=== PATIENT | female | born 1925 | race Caucasian/White ===

== ENCOUNTER 2016-04-25 15:07 | Emergency (ER) | payer MEDICARE ==
[~2016-04-25] VITALS: Ht 157.5 cm; Wt 65.0 kg
[2016-04-25 15:20] VITALS: BP 136/98; PULSE 113; RESP 18; O2SAT 98
--- NOTE | 2016-04-25 15:24 | ED.REPORT ---
HPI-General Illness Date of Service Apr 25, 2016 ED Provider: Dr. Mikayla Farooq M.D. An 89 year old female presents to the ED from her PCP in new-onset atrial fibrillation. Three weeks ago the patient was diagnosed with a UTI and placed on antibiotics. When she was seen by her PCP today, she was found to be in atrial fibrillation. Her only complaint at this time is trouble sleeping for the past 2-3 weeks. Pt's reports that she has been sleeping more than usual. He is not sure if it is from the antibiotics or not. Nursing Notes Stated Complaint: HEART CONCERNS Chief Complaint: Dysrhythmia/Cardiac Nursing Notes Reviewed: Yes Allergies: Coded Allergies: procaine (Verified Allergy, Unknown, 04/25/16) Scheduled Metoprolol Tartrate (Metoprolol Tartrate) 25 Mg Tablet 25 MG PO BID Triamterene/HCTZ 75-50 mg (Triamterene/HCTZ 75-50 mg) 1 Each Tablet 0.5 TABLET PO DAILY Miscellaneous Medications Levothyroxine Sodium (Levo-T) 100 Mcg Tablet 100 MCG PO General Time Seen by MD: 15:25 Chief Complaint Other (New Atrial Fibrillation) Hx Obtained From: Patient, Spouse (Akira) Arrived By: Walk-in Sudden in Onset?: Yes Onset Occurred: Onset unknown Symptom Duration: Since onset Severity: Current: No pain currently Severity: Maximum: No pain Pertinent Negative: Pt denies other symptoms Recent Healthcare: Recent doctor visit (today for follow up UTI) Past Medical History Past Medical History Schatzki's ring Gastric Polyps Reports: Hypertension Reports: Thyroid disease (hypothyroidism) Past Surgical History None reported Smoking History Unknown if Ever Smoker Social History Other Social History: Good social support Ambulatory Status Independent Review of Systems Full Review of Systems Constitutional: Denies: Chills, Fatigue, Fever, Lethargy, Malaise Eyes: Denies: Blurred bilateral, Discharge bilateral, Eye pain bilateral, Redness bilateral, Visual loss bilateral Ears / Nose / Throat: Denies: Ear drainage bilateral, Ear ringing bilateral, Earache bilateral, Hearing loss bilateral, Nasal congestion, Sore throat Respiratory: Denies: Dyspnea on exertion, Hemoptysis, Non-productive cough, Parox nocturnal dyspnea, Pleuritic pain, Prod cough, bloody, Prod cough, brown, Prod cough, clear, Prod cough, green, Prod cough, white, Prod cough, yellow, Shortness of breath, Wheezing Cardiovascular: Denies: Chest pain, Dyspnea on exertion, Edema, Orthopnea, Palpitations, Parox nocturnal dyspnea, Syncope GI: Denies: Abdominal pain, Constipation, Diarrhea, Nausea, Vomiting Female: Denies: Dysuria, Hematuria, Urinary frequency, Urinary urgency, Urination increased Musculoskeletal: Denies: Back pain, Extremity pain, Extremity swelling, Joint pain, Joint swelling, Lumbar pain, Myalgia, Neck pain, Thoracic pain Hematologic: Denies Bleeding, Denies Bruising Endocrine: Denies: Cold intolerance, Heat intolerance, Polydipsia, Polyphagia, Polyuria, Weight gain, Weight loss Skin: Denies Bruising, Denies Diaphoresis, Denies Itching, Denies Rash, Denies Swelling, Denies Unexplained bruises Allergy / Immune: Denies: Allergic reaction, Anaphylaxis, Hives, Itching, Rhinorrhea, Sneezing Neurologic: Denies: Abnormal movement, Bladder dysfunction, Bowel dysfunction, Change LOC, Confusion, Dizziness, Focal weakness, Headache, Lightheaded, Numbness, Problem walking, Seizure, Shaking, Slurred speech, Spinning sensation , Syncope, Unable to speak, Vision change, Weakness Psychiatric: Denies: Agitation, Anxiety, Change mental status, Confusion, Delusional, Depression, Hallucinations, auditory, Hallucinations, visual, Homicidal ideation, Hostile, Insomnia, Stress, Suicidal ideation, Unable to control self Physical Exam Vital Signs Vital Signs Date Time Temp Pulse Resp B/P Pulse Ox O2 Delivery O2 Flow Rate FiO2 04/25/16 18:01 122 12 120/80 97 Room Air 04/25/16 17:59 122 12 120/80 97 Room Air 04/25/16 16:45 133 22 126/73 97 Room Air 04/25/16 15:54 20 119/93 100 Room Air 04/25/16 15:20 36.0 113 18 136/98 98 Room Air Initial VS: Reviewed General/Constitutional: Well-developed, Well-nourished Head / Eyes: Atraumatic, Normocephalic, PERRL ENT: Mucous membranes moist, Conjunctiva normal, No scleral icterus Neck: Supple, Non-tender, Full range of motion Respiratory: Breath sounds normal, Clear to auscultation, No respiratory distress Cardiovascular: Heart sounds normal, Intact distal pulses Abdomen / GI: Soft, Non-tender, No guarding, No rebound, No distention Back: No CVA tenderness Lymphatic: No lymphadenopathy Extremities: Vascular intact, Neuro intact, No swelling, No tenderness Skin: Warm, Dry Neurologic: Alert, Oriented, Nonfocal Psychiatric: Mood/affect normal, Behavior normal, Normal thought content Heart Rate / Rhythm: Positive: Irreg irregular rhythm Interpretation & Diagnostics Interpretation & Diagnostics: CXR showed no acute cardiopulmonary changes Lab Results Interpretation Result Diagram: 04/25/16 1532 04/25/16 1532 Test 04/25/16 15:32 04/25/16 17:34 White Blood Count 9.5th/mm3 (3.8-10.1) Red Blood Count 5.08mil/mm3 (3.90-5.20) Hemoglobin 15.0g/dL (12.0-15.6) Hematocrit 44.4% (35.0-46.0) Mean Corpuscular Volume 87.4fL (81-100) Mean Corpuscular Hemoglobin 29.5pg (27.0-35.0) Mean Corpuscular Hemoglobin Concent 33.8% (32.0-37.0) Red Cell Distribution Width 14.1% (12.3-15.4) Platelet Count 400bil/L (150-400) Neutrophils (%) (Auto) 66.1% (40-74) Lymphocytes (%) (Auto) 23.7% (14-46) Monocytes (%) (Auto) 8.0% (4-12) Eosinophils (%) (Auto) 0.7% (0-5) Basophils (%) (Auto) 1.0% (0-3) Sodium Level 136mEq/L (134-144) Potassium Level 3.6mEq/L (3.5-5.2) Chloride Level 95mEq/L (97-108) Carbon Dioxide Level 25mmol/L (18-29) Blood Urea Nitrogen 38mg/dL (8-27) Creatinine 1.20mg/dL (0.57-1.00) Estimat Glomerular Filtration Rate 61mL/min (>59) Glucose Level 85mg/dL (60-99) Calcium Level 9.6mg/dL (8.5-10.1) Magnesium Level 1.8mg/dL (1.6-2.6) Total Bilirubin 0.4mg/dL (0.0-1.2) Aspartate Amino Transf (AST/SGOT) 16U/L (0-50) Alanine Aminotransferase (ALT/SGPT) 15U/L (0-32) Alkaline Phosphatase 86U/L (25-165) Troponin T < 0.010ug/L (0.0-0.011) Pro-B-Type Natriuretic Peptide 1967pg/mL (0-738) Total Protein 8.0g/dL (6.4-8.4) Albumin 3.9g/dL (3.4-5.0) Thyroid Stimulating Hormone (TSH) 2.940uIU/mL (0.450-4.500) Hold Rice Top Tube Received (Received) Hold Urine Received (Received) ECG Interpretation ECG Interpretation: Atrial fibrillation rate 126 Inferior infarct, old Lateral leads are also involved Time: 15:37 Interpreted by: ED physician Re-Eval/Medical Decision Med Decision/Clinical Course SAVI s(2) score is 2 for HTN and Age, rec warfarin unless reasons to avoid 1. Atrial fibrillation -Unknown onset -Etiology unknown -Troponin <0.01, CXR showed no acute changes -No focal neurological deficits on exam Discharge & Departure Shift Change Sign-Out Imaging Studies: Done, reviewed by me Primary Impression: Atrial fibrillation Atrial fibrillation type: unspecified Qualified Code: I48.91 - Unspecified atrial fibrillation Disposition: Home Discharge Condition All VS Reviewed: Yes Condition: Stable Patient Instructions: Atrial Fibrillation (ED), Palpitations (ED) Additional Instructions: You were sent to the ER for newly noticed atrial fibrillation. We don't know how long you have been in this rythm, but you are tolerating it well. To control the rate: Start metoprolol 25 mg 1 tablet twice daily Start taking a full 325 mg Aspirin 1 tablet once daily to thin your blood and to prevent stroke. Continue triamterene/HCTZ for your blood pressure as previously prescribed. Follow up within 1 week with your primary care provider, JI Chamberlain to discuss blood thinners, possible echo cardiogram, possible cardiology involvement. If you notice any chest pain, trouble breathing, trouble walking, changes in your speech, or numbness or tingling please seek medical attention. Referrals: Lester Jimenez MD (PCP) 1 Week Scribe Attestation Portions of this note were transcribed by Moni Barillas. I, Dr. Farooq, personally performed the history, physical exam, and medical decision-making; I reviewed and confirmed the accuracy of the information in the transcribed note. Signed by: Shan Babin, 04/25/2016, 16:56 Attending Statement Pt seen and examined with Dr Cordoba. Agree with exam, plan and documentation as above. copies to: Melinda Correa; Lester Jimenez MD, Shawna L MD Apr 25, 2016 15:24 MONI BARILLAS Apr 25, 2016 16:03 Nasreen Cordoba DO Apr 25, 2016 16:52
[2016-04-25 15:43] LABS: EOSINOPHILS % (AUTO) 0.7 % (0-5); Mean Corpuscular Hemoglobin 29.5 pg (27.0-35.0); Mean Corpuscular Volume 87.4 fL (81-100); NEUTROPHILS % (AUTO) 66.1 % (40-74); Platelet Count 400 bil/L (150-400)
[2016-04-25 15:54] VITALS: BP 119/93; RESP 20; O2SAT 100
[2016-04-25] MEDS ORDERED: LEVO-88 PO (16:01)
[2016-04-25] MEDS ORDERED: TRIA1TAB5 PO (16:05)
--- NOTE | 2016-04-25 16:07 | DRSVH ---
PROCEDURE: X-RAY CHEST ONE VIEW, PORTABLE ([id number]) INDICATIONS: dysrythmia TECHNIQUE: One view of the chest was acquired. COMPARISON: None. FINDINGS: Surgical changes and devices: None. Lungs and pleura: No pleural effusions or pneumothorax. Lungs are clear. Mediastinum: Mediastinal contours appear normal. Heart size is normal. Bones and chest wall: No suspicious bony lesions. Overlying soft tissues appear unremarkable. IMPRESSION: No acute cardiopulmonary disease. Dictated by: Nilda Headley M.D. on 04/25/2016 at 16:05 Approved by: Nilda Headley M.D. on 04/25/2016 at 16:05
[2016-04-25 16:16] LABS: TROPONIN T < 0.010 ug/L (0.0-0.011)
[2016-04-25 16:19] LABS: Magnesium 1.8 mg/dL (1.6-2.6)
[2016-04-25 16:45] VITALS: BP 126/73; PULSE 133; RESP 22; O2SAT 97
[2016-04-25] MEDS ORDERED: METO25TA6 PO (17:42)
[2016-04-25 17:59] VITALS: BP 120/80; PULSE 122; RESP 12; O2SAT 97
[2016-04-25 18:01] VITALS: BP 120/80; PULSE 122; RESP 12; O2SAT 97
== END 2016-04-25 18:02 | disposition home or self-care (01) ==
LOC: SED 15:07
DX: I48.91 Unspecified atrial fibrillation (principal); I10 Essential (primary) hypertension; E03.9 Hypothyroidism, unspecified; Z88.8 Allergy status to other drugs, medicaments and biological substances; Z87.440 Personal history of urinary (tract) infections

== ENCOUNTER 2016-05-03 12:02 | Inpatient (IN) | payer MEDICARE ==
[~2016-05-03] VITALS: Ht 154.9 cm; Wt 67.8 kg
[2016-05-03] VITALS (9 sets, daily range): BP systolic 116–153; BP diastolic 47–95; PULSE 71–86; RESP 16–24; O2SAT 94–99
[~2016-05-03 12:02] MED LIST: LEVO-88 PO; METO25TA6 PO; TRIA1TAB5 PO
--- NOTE | 2016-05-03 12:04 | ED.REPORT ---
HPI-Stroke / CVA May 03, 2016 ED Provider: MD Enmanuel This is a 89 year old female with a history of atrial fibrillation brought to the ED by EMS with aphasia that was present upon awakening one hour ago. Last known well was sometime after midnight when she went to bed. Spouse reports pt had difficulty speaking and walking. Pt was diagnosed with atrial fibrillation one week ago. Last known normal was yesterday night. En route, BP 144/88, pulse 86, pulse ox 94%. Nursing Notes Stated Complaint: STROKE Nursing Notes Reviewed: Yes Allergies: Coded Allergies: procaine (Verified Allergy, Unknown, 05/03/16) Scheduled Metoprolol Tartrate (Metoprolol Tartrate) 25 Mg Tablet 25 MG PO BID Triamterene/HCTZ 75-50 mg (Triamterene/HCTZ 75-50 mg) 1 Each Tablet 0.5 TABLET PO DAILY (Reported) Miscellaneous Medications Levothyroxine Sodium (Levo-T) 100 Mcg Tablet 100 MCG PO (Reported) General Time Seen by Provider: 12:03 Chief Complaint Unable to speak Hx Obtained From: Patient Arrived By: Ambulance Time last known well 12 hours ago Sudden in Onset?: Yes Symptom Duration: Since onset Progression Since Onset: Unchanged Severity: Current: No pain currently Pertinent Negative: Pt denies other symptoms Recent Healthcare: No recent doctor visit, No recent hospitalization Similar Sx Previous: No Risk Factors Onset time cannot be established therefore, the patient is excluded. 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 (1) Horizontal EO Movements: None (0) Visual Schwartz: No visual loss (0) Facial Palsy: Normal symmetry (0) Right Arm Motor Drift (10s): Drift, not touch bed (1) Left Arm Motor Drift (10s): No drift 10 sec (0) Right Leg Motor Drift (5s): No drift 5 sec (0) Left Leg Motor Drift (5s): Drift, hits bed (2) Limb Ataxia FNF/Heel-Braun: No ataxia (0) Sensation (Arms/Legs/Face): No sensory loss (0) (untestable) Language Aphasia: Mute, global aphasia (3) Dysarthria: Mute, anarthric (2) Extinction/Inattention: Prfound naman-inattent (2) NIHSS Score: 11 Time NIHSS Performed: 13:16 Date NIHSS Performed: May 03, 2016 Past Medical History Past Medical History Schatzki's ring Gastric Polyps Reports: Hypertension Reports: Thyroid disease Past Surgical History None reported Smoking History Unknown if Ever Smoker Social History Other Social History: Good social support Ambulatory Status Independent Review of Systems Constitutional: Denies: Chills, Fever Respiratory: Denies: Non-productive cough, Shortness of breath Cardiovascular: Denies: Chest pain GI: Denies: Abdominal pain, Nausea, Vomiting Neurologic: Reports: Problem walking, Unable to speak, Denies: Headache Complete sys rev & neg: except as marked. Physical Exam Initial Vital Signs Vital Signs (First) Date Time Temp Pulse Resp B/P Pulse Ox O2 Delivery O2 Flow Rate FiO2 05/03/16 12:05 37 76 20 153/83 99 Room Air - Initial VS: Reviewed ENT: Mucous membranes moist, Conjunctiva normal, No scleral icterus Abdomen / GI: Soft, Non-tender, No guarding, No rebound, No distention Extremities: Vascular intact, Neuro intact, No swelling, No tenderness Skin: Warm, Dry, No cyanosis General/Constitutional: Awake Head / Eyes: PERRL Neck: Supple, Full range of motion, No swelling, Non-tender, No carotid bruit Respiratory / Chest: Breath sounds NL, Breath sounds = bilat, No respiratory distress, No rales, No rhonchi, No wheezing Cardiovascular: Heart rate NL, Regular rhythm, Heart sounds NL, No murmurs, No rubs Neurologic: No sensory deficits aphasia, NIH stroke scale 11 Interpretation & Diagnostics BRAIN CT IMPRESSION: No acute intracranial abnormality. Dictated by: Aditya Aguirre M.D. on 05/03/2016 at 12:53 Approved by: Aditya Aguirre M.D. on 05/03/2016 at 12:53 Lab Results Interpretation Result Diagram: 05/03/16 1211 05/03/16 1211 Test 05/03/16 12:11 05/03/16 12:45 White Blood Count 11.2th/mm3 (3.8-10.1) Red Blood Count 4.36mil/mm3 (3.90-5.20) Hemoglobin 12.6g/dL (12.0-15.6) Hematocrit 38.8% (35.0-46.0) Mean Corpuscular Volume 89.0fL (81-100) Mean Corpuscular Hemoglobin 28.9pg (27.0-35.0) Mean Corpuscular Hemoglobin Concent 32.5% (32.0-37.0) Red Cell Distribution Width 14.5% (12.3-15.4) Platelet Count 283bil/L (150-400) Neutrophils (%) (Auto) 76.2% (40-74) Lymphocytes (%) (Auto) 16.3% (14-46) Monocytes (%) (Auto) 6.3% (4-12) Eosinophils (%) (Auto) 0.4% (0-5) Basophils (%) (Auto) 0.4% (0-3) Prothrombin Time 10.1sec (8.1-12.5) Prothromb Time International Ratio 0.95ratio Sodium Level 139mEq/L (134-144) Potassium Level 3.3mEq/L (3.5-5.2) Chloride Level 100mEq/L (97-108) Carbon Dioxide Level 24mmol/L (18-29) Blood Urea Nitrogen 29mg/dL (8-27) Creatinine 0.95mg/dL (0.57-1.00) Estimat Glomerular Filtration Rate 80mL/min (>59) Glucose Level 101mg/dL (60-99) Calcium Level 9.3mg/dL (8.5-10.1) Total Bilirubin 0.4mg/dL (0.0-1.2) Aspartate Amino Transf (AST/SGOT) 15U/L (0-50) Alanine Aminotransferase (ALT/SGPT) 11U/L (0-32) Alkaline Phosphatase 83U/L (25-165) Total Protein 7.5g/dL (6.4-8.4) Albumin 3.8g/dL (3.4-5.0) Urine Color Yellow (YELLOW) Urine Appearance Hazy (CLEAR,HAZY) Urine pH 6.5 (5.0-8.0) Urine Specific [place]lin 1.010 (1.003-1.035) Urine Protein Negativemg/dL (NEG,TRACE) Urine Glucose (UA) Negativemg/dL (NEGATIVE) Urine Ketones Negativemg/dL (NEGATIVE) Urine Occult Blood Negative (NEGATIVE) Urine Nitrite Negative (NEGATIVE) Urine Bilirubin Negative (NEGATIVE) Urine Urobilinogen Normalmg/dL (NORMAL) Urine Leukocyte Esterase Small (NEGATIVE) Urine RBC 0-2/hpf (0-2) Urine WBC 0-5/hpf (0-5) Urine Epithelial Cells Occasional/hpf (NONE-MOD) Urine Crystals None seen (NONE SEEN) Urine Bacteria Few/hpf (NONE-FEW) Urine Hyaline Casts None/lpf (NONE) Urine Granular Casts None seen (NONE SEEN) Urine Waxy Casts None seen (NONE SEEN) Urine Red Blood Cell Casts None seen (NONE SEEN) Urine White Blood Cell Casts None seen (NONE SEEN) Urine Mucus None seen (None Seen) Urine Trichomonas None seen (NONE SEEN) Urine Yeast None (NONE SEEN) Urinalysis Comment None Urine Culture Reflexed Indicated ECG Interpretation ECG Interpretation: Atrial fibrillation at a rate of 70 Atrial premature complexes Probable left atrial enlargement Nonspecific intraventricular conduction delay Time: 12:19 Interpreted by: ED physician Re-Eval/Medical Decision Re-Evaluation/Progress : Time of Eval: 13:15 Re-Evaluation/Progress Note: Discussed lab and imaging results with family members present in the room. Plan for admission, family members understand and agree with plan, all questions addressed. Consultation : Referral / Consult Name: Osei Deluca MD Consulted With: Hospitalist Call Returned at: 15:33 Cable Hooker: Accepts admit Counseled Regarding: Diagnosis, Lab results, Need for follow-up, Need for admission Patient Discharge & Departure Impression: Primary Impression: Stroke CVA mechanism: unspecified Qualified Code: I63.9 - Cerebral infarction, unspecified Disposition: ADMITTED TO HOSPITAL Discharge Condition All VS Reviewed: Yes Condition: Stable Referrals: Dimitris,Catalina WORKMAN (PCP) Scribe Attestation Portions of this note were transcribed by Karla Walton. I, Dr. Singer personally performed the history, physical exam and medical decision-making; I reviewed and confirmed the accuracy of the information in the transcribed note. Signed by: onofre Bell. 05/03/2016, 13:00. Hasmukh Singer MD May 03, 2016 12:04 KARLA WALTON May 03, 2016 12:13
[2016-05-03] MEDS ORDERED: 0.9% Sodium Chloride 1,000 ML IV ONE (12:07)
[2016-05-03 12:20] LABS: BASOPHILS % (AUTO) 0.4 % (0-3); EOSINOPHILS % (AUTO) 0.4 % (0-5); MONOCYTES % (AUTO) 6.3 % (4-12); Mean Corpuscular Hemoglobin 28.9 pg (27.0-35.0); NEUTROPHILS % (AUTO) 76.2 % (40-74); Platelet Count 283 bil/L (150-400)
[2016-05-03 12:45] LABS: INR 0.95 ratio
--- NOTE | 2016-05-03 12:54 | DRSVH ---
PROCEDURE: CT BRAIN WITHOUT CONTRAST ([id number]) INDICATIONS: Stroke, APHASIA TECHNIQUE: Noncontrast 4.5 mm thick angled axial sections acquired from the foramen magnum to the vertex, with c oronal reformats. COMPARISON: [facility], CT, BRAIN W/O CONTRAST, 09/09/2012, 8:23. FINDINGS: Image quality: Degraded by patient positioning factors. CSF spaces: Basal cisterns are patent. No extra-axial fluid collections. The ventricles are symmet paul in size and shape. Brain: No intracranial bleeds or masses. There is cerebral volume loss for age, with resultant vent ricular and sulcal prominence. There are periventricular and deep white matter chronic small vessel ischemic changes. There is intracranial internal carotid artery atherosclerosis. Skull and face: Calvarium and visualized facial bones appear intact, without suspicious lesions. Sinuses: Visualized sinuses and mastoids are clear. IMPRESSION: No acute intracranial abnormality. Dictated by: Aditya Aguirre M.D. on 05/03/2016 at 12:53 Approved by: Aditya Aguirre M.D. on 05/03/2016 at 12:53
[2016-05-03 13:09] LABS: APPEARANCE,URINE HAZY (CLEAR,HAZY); COLOR,URINE YELLOW (YELLOW); OCCULT BLOOD,URINE NEGATIVE (NEGATIVE); PH,URINE 6.5 (5.0-8.0); UROBILINOGEN,URINE NORMAL (NORMAL)
[2016-05-03] MEDS ORDERED: Ondansetron 2 mg/mL 2 mL Inj IVPUSH PRN (15:40)
[2016-05-03] MEDS ORDERED: Alum-Mag Hydrox-Simeth 30 mL Suspension PO PRN (15:40)
--- NOTE | 2016-05-03 16:43 | PCM.HPMED ---
Subjective Date of Service May 03, 2016 Primary Provider: Admitting Physician: Primary Care Physician: Catalina Shanks Attending Physician: Chief Complaint: altered mentation per family HISTORY was OBTAINED FROM family / [facility] NOTES History of present illness 89 y right handed f w. normal neurological status prior to bed last night, woke up this morning being less verbally responsive to , then walked to living room by herself, sat in chair then saw her spill glass of water on shirt w/ shaking/weak right hand, was able to give her ASA this morning though, then prsented to ER w/ progressive global aphasia / right upper extremity-facial weakness. 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 no headahce. neg nuc med scan [address] 83% Dr Cai on the 05/12 Per EMS BP 144/88, pulse 86, pulse ox 94%. In the ER, 1L normal saline, HDS, Head CT neg / unable to perform MR due to figetting, lacking understanding Review of Systems - unable to assess due to global aphasia pneumonia shot yesterday loose stool this am Fhx RHEUMATIC fever - F MD Social Hx never smoker Medications Metoprolol Tartrate (Metoprolol Tartrate) 25 Mg Tablet 25 MG PO BID Triamterene/HCTZ 75-50 mg (Triamterene/HCTZ 75-50 mg) 1 Each Tablet 0.5 TABLET PO DAILY (Reported) Levothyroxine Sodium (Levo-T) 100 Mcg Tablet 100 MCG PO (Reported) PMHX recent 04/06/2016 UC dysphagia, seeing ENT next week, swallow last year consistent w/ esophageal diverticulum? per daughter though Schatzki's ring documented . UTI recurrent Gastric Polyps Hypertension hypothyroidism new afib hip replacement 1999 appendectomy childhood Allergies Coded Allergies: epinephrine (Verified Allergy, Intermediate, 05/03/16) omeprazole (Verified Allergy, Intermediate, 05/03/16) lisinopril (Verified Allergy, Mild, 05/03/16) procaine (Verified Allergy, Unknown, 05/03/16) Uncoded Allergies: FERROUS DEXTROSE INJECTIONS (Allergy, Severe, UNK, 05/03/16) PMH Social History Hx Alcohol Use: No Hx Substance Use: No Smoking Status: Unknown if Ever Smoker Exam Vital Signs Vital Sign - Last Date Time Temp Pulse Resp B/P Pulse Ox O2 Delivery O2 Flow Rate FiO2 05/03/16 16:18 74 19 148/95 95 Room Air 05/03/16 12:05 37 Exam Past Medical/Surgical HX Exam on admission attempting to get of bed, does not follow commands, shake hands left, able to walk to commode per family NAD Awaker NC/AT no icterus no injected eyes PERRL Supple neck CTAB equal chest rise / no accessory muscle use / no rrw RRR S1 S2 / no mrg / 2+ radial pulses Soft nt nd + BS no hepatosplenomegaly No edema no cyanosis no ecchymosis of lower extremities No rash / no jaundice Right facial droop Right sided neglect Right upper extremity 2-3/5, global aphasia EKG QTC CXR neg acute UA tr leukocytes esterase and bacteria [id number], elevated triglycerides Trop neg x 2 Lab and Diagnostics Result Diagram: 05/03/16 1211 05/03/16 1211 Assessment & Plan Active issues and reason for admission Left MCA CVA, 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, pending confirmatory MRI, w/ recent atrial fibrillation diagnoses, --ASA ND, consider coumadin/AC therapy if MR demonstrates embolic CVA, npo, IVF , carotids w/o significant disease serial trop echo a1c pending, 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 Osei Deluca MD May 03, 2016 16:43 Osei Deluca MD May 03, 2016 16:43
[2016-05-03] MEDS ORDERED: Labetalol 5 mg/mL 4 mL Inj IVPUSH PRN (16:45)
[2016-05-03] MEDS ORDERED: hydrALAZINE 20 mg/mL Inj IVPUSH PRN (16:45)
[2016-05-03 17:46] LABS: TROPONIN T < 0.010 ug/L (0.0-0.011)
--- NOTE | 2016-05-03 18:50 | DRSVH ---
PROCEDURE: US BILATERAL DUPLEX DOPPLER IMAGING OF THE CAROTIDS ([id number]) INDICATIONS: Evaluate stroke follow up TECHNIQUE: Color and pulse Doppler interrogation was performed of both carotid systems, with image documentation and velocity measurements. COMPARISON: None. FINDINGS: All stenosis calculations are based on NASCET criteria. Right side: Brachial blood pressure: 116/56 mm Hg. Common carotid artery peak systolic velocity: 55 cm/sec. Internal carotid artery peak systolic velocity: 66 cm/sec. Internal carotid artery end diastolic velocity: 17 cm/sec. External carotid artery peak systolic velocity: 142 cm/sec. ICA/CCA peak systolic ratio: 1.20. Jennings scale imaging description: Mild calcific plaque in the proximal internal carotid artery Percent internal carotid artery stenosis: Less than 50%. Vertebral artery: Flow direction is antegrade. Left side: Brachial blood pressure: 121/58 mm Hg. Common carotid artery peak systolic velocity: 55 cm/sec. Internal carotid artery peak systolic velocity: 64 cm/sec. Internal carotid artery end diastolic velocity: 15 cm/sec. External carotid artery peak systolic velocity: 89 cm/sec. ICA/CCA peak systolic ratio: 1.16. Jennings scale imaging description: Mild calcific plaque at the bifurcation Percent internal carotid artery stenosis: Less than 50%. Vertebral artery: Flow direction is antegrade. IMPRESSION: 1. Less than 50% bilateral internal carotid artery stenosis. 2. Patent bilateral vertebral arteries. Dictated by: Aditya Aguirre M.D. on 05/03/2016 at 18:49 Approved by: Aditya Aguirre M.D. on 05/03/2016 at 18:49
--- NOTE | 2016-05-03 19:06 | NUR ---
Evaluation completed. Rec: Strict NPO. 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 Then select appropriate discipline tab on top of screen.
[2016-05-03] MEDS ORDERED: FERR325T39 PO (20:34)
[2016-05-03] MEDS ORDERED: ASPI-973 PO (20:34)
[2016-05-03] MEDS ORDERED: ASPI325T32 PO (20:34)
[2016-05-03] MEDS ORDERED: VIT1CAPS27 PO (20:34)
[2016-05-04] MEDS: D5 0.45% NaCl + KCl 20 mEq/L 1,000 ML IV SCH ×3 (00:04→18:44)
[2016-05-04] MEDS: cefTRIAXone Inj 1,000 MG in IV Premix 1 EACH IV SCH ×2 (02:03→20:35)
[2016-05-04 05:40] VITALS: BP 125/73; PULSE 82; RESP 16; O2SAT 96
[2016-05-04 06:23] LABS: BASOPHILS % (AUTO) 0.5 % (0-3); EOSINOPHILS % (AUTO) 0.6 % (0-5); MONOCYTES % (AUTO) 8.8 % (4-12); Mean Corpuscular Hemoglobin 29.4 pg (27.0-35.0); Mean Corpuscular Volume 88.3 fL (81-100); NEUTROPHILS % (AUTO) 71.8 % (40-74); Platelet Count 261 bil/L (150-400)
--- NOTE | 2016-05-04 06:28 | NUR ---
Admit Patient arrived to floor at 1824 from ED. Noted right sided weakness that improved throughout night, able to ambulate with 1 person assist and FWW. Transferred from bed to BSC several times during shift.Patient responds to questions, however inappropriately; responding with positive nods to any question asked. Occasionally, she will laugh and make gestures suggesting understanding but maintains persistent disorientation.
--- NOTE | 2016-05-04 09:05 | NUR ---
Evaluation completed. Please go to "Notes" then click on "Assessments and Notes" (bottom left corner of screen). Then select appropriate discipline tab on top of screen.
[2016-05-04 09:29] VITALS: BP 125/71; PULSE 69; RESP 16; O2SAT 97
[2016-05-04 09:37] VITALS: PULSE 92
--- NOTE | 2016-05-04 11:41 | NUR ---
Evaluation completed. Please go to "Notes" then click on "Assessments and Notes" (bottom left corner of screen). Then select appropriate discipline tab on top of screen.
--- NOTE | 2016-05-04 13:31 | DRSVH ---
[facility] [address] [place] [address] Echocardiogram Report Name: MADI BROWNLEE Date: Height: 61 in Hospital Exam Location: [facility] Weight: 153 lb Gender: Female BSA: 1.7 m2 : 1925 Age: 89 yrs BP: 125/73 mmHg Reason For Study: Atrial fibrillation, CVA Ordering Physician: Performed By: Gonzalez Garcia Referring Physician: ARIEL ZELAYA Interpretation Summary The left ventricle is normal in size. The ejection fraction is estimated to be 60-65%. There is mild mitral regurgitation. The aortic valve is trileaflet. There is mild aortic regurgitation. There is trace tricuspid regurgitation. The right ventricular systolic pressure is estimated at 35 mmHg assuming a right atrial pressure of 3 mm Hg. Procedure: A two-dimensional transthoracic echocardiogram with color flow and Doppler was performed. The study quality was technically adequate. There is no prior echocardiogram noted for this patient. A contrast injection of Definity was performed to improve assessment of LV function. The patient was in normal sinus rhythm during the exam. Left Ventricle: The left ventricle is normal in size. Left ventricular wall thickness is mildly increased. The ejection fraction is estimated to be 60- 65%. Left ventricular wall motion is normal. Assessment of diastolic parameters suggests a pseudonormalization pattern, consistent with elevated filling pressures. Right Ventricle: The right ventricle is normal size. Atria: There is mild biatrial enlargement. The interatrial septum is intact with no evidence for an atrial septal defect. Mitral Valve: The mitral valve leaflets are mildly calcified. There is mild mitral regurgitation. Aortic Valve: The aortic valve is trileaflet. The aortic valve opens well. There is mild aortic regurgitation. Tricuspid Valve: The tricuspid valve is normal. There is trace tricuspid regurgitation. The right ventricular systolic pressure is estimated at 35 mmHg assuming a right atrial pressure of 3 mm Hg. Pulmonic Valve: The pulmonic valve is not well seen, but is grossly normal. There is a trace or physiologic amount of pulmonic regurgitation. Great Vessels: The aortic root is normal size. The ascending aorta is mildly enlarged. The pulmonary artery is normal size. The IVC is of normal diameter and collapses greater than 50% with a sniff. This suggests a low right atrial pressure of 3 mm Hg. Pericardium/ Pleura There is no pericardial effusion. There is no pleural effusion. MMode/2D Measurements & Calculations LVIDd: 4.6 cm RA long axis: 4.8 cm LVOT diam: 1.8 cm LVIDs: 2.8 cmLA A2 area: 17.9 cm AoV Openin.4 cm FS: 39.2 % LA A4 area: 20.2 cm RA area: 19.4 cm Ao root diam EPSS: 0.67 cmLA length (vol) RA vol: 66.6 ml IVSd: 1.0 cm RA : 39.5 ml/m2 asc Aorta Diam LVPWd: 1.0 cmLA vol: 59.0 ml LA vol index Ao Arch Diam (Prox Trans): 3.2 cm IVC diam: 1.8 cm EDV(MOD-sp2) LV nolen. diameter/BSA LV sys. diameter/BSA RVD1 (basal) (cm/m^2): 2.7 (cm/m^2): 1.7 : 2.8 cm TAPSE: 1.8 cm Doppler Measurements & Calculations Ao V2 max: 122.8 cm/secMV E max idris MV E/A: 1.9 TR max idris Ao max P.0 mmHg : 78.0 cm/sec Med Peak E' Idris : 282.3 cm/sec Ao mean P.3 mmHg MV A max idris TR max PG LVOT Max Idris : 41.6 cm/sec E/E' med: 13.0 : 31.9 mmHg : 80.5 cm/sec Lat Peak E' Idris PA V2 max MVA(VTI): 2.2 cm2 : 61.5 cm/sec BEHZAD(I,D): 1.7 cm E/E' lat: 11.6 PA mean PG sev ratio: 0.65 E/e' average : 1.0 mmHg MV V2 mean: 53.4 cm/secAo V2 mean LV V1 max PG PA V2 mean MV mean P.4 mmHg : 86.3 cm/sec : 49.4 cm/sec MV V2 VTI: 21.4 cm Ao V2 VTI LV V1 VTI: 18.6 cmPA pr(Accel) MV dec time: 0.17 sec : 21.4 mmHg BEHZAD(V,D): 1.7 cm2 BEHZAD indexed to BSA (cm^2/m^2): 0.99 Electronically signed by: Harrison Cardona on Reading Physician:05/04/2016 01:30 PM
--- NOTE | 2016-05-04 14:08 | NUR ---
Social Work Initial Assessment: SW met with patient and family at bedside to discuss discharge plan. Patient is a 89 year old female admitted on 05/03/16 for CVA. Patient payer as [employer]. Patient PCP as Catalina Garcia. Patient resides with Akira, in [facility]. Patient has no previous HHC or SNF history. Patient has AD and SW encouraged patient to bring in. Patient has a walker and commode at home. Family, daughter Sabra, and son Marty, available to provide support and care and tuan Ferguson resides within vicinity of home. Pending PT eval and recommendations, SW to coordinate appropriate plan of care. SW to follow. PLAN: Home with , pending PT eval and clinical course. SW to follow. Zully ESCUDERO Addendum: 05/04/16 at 1417 by MIRELLA OZUNA Amended: Links added. Addendum: 05/04/16 at 1433 by MIRELLA OZUNA Per PT and OT recommendations, HHC recommended. SW to follow up with patient and family for HHC choice and further PT/OT progressions. SW to follow Zully ESCUDERO
[2016-05-04 14:19] VITALS: BP 147/81; PULSE 71; RESP 16; O2SAT 98
--- NOTE | 2016-05-04 15:46 | PCM.PNMED ---
Subjective Date of Service May 04, 2016 Subjective Patient has gotten a bit better is able to verbalize a little bit. And is able to understand a little bit more. She has been walking and arm strength has returned. She however has been evaluated by speech therapy and is not able to take anything orally yet because of poor swallow. Exam Vital Signs Vital Sign - Last Date Time Temp Pulse Resp B/P Pulse Ox O2 Delivery O2 Flow Rate FiO2 05/04/16 14:19 36.8 71 16 147/81 98 Room Air Intake and Output 05/03/16 05/03/16 05/04/16 Cumulative From/Thru 14:59 22:59 06:59 05/03/16 12:05 - 05/04/16 06:05 Intake Total 1000 ml 356 ml 1356 ml Output Total 50 ml 50 ml Balance 1000 ml 306 ml 1306 ml Intake Oral 0 ml 0 ml IV Total 1000 ml 356 ml 1356 ml Output Urine Total 50 ml 50 ml # Voids 3 3 # Bowel Movements 0 0 Exam Constitutional: Elderly woman who is alert. Head: Normocephalic atraumatic Eyes: PERRLA DC EOMI Chest: Clear to auscultation Cor: Irregular regular rate and rhythm S1-S2 Abdomen: Soft nontender bowel sounds present Extremity exam: No pedal edema noted Neuro: Alert and oriented to self, not easily able to evaluate if she is oriented to place or time. She still does have an expressive and receptive aphasia but is understanding a lot of conversations and commands and does try to verbalize and can get a few words out. Lab and Diagnostics Laboratory Tests 72 Hours Test 05/03/16 12:11 05/03/16 12:45 05/03/16 20:23 05/04/16 02:25 White Blood Count 11.2th/mm3 (3.8-10.1) Red Blood Count 4.36mil/mm3 (3.90-5.20) Hemoglobin 12.6g/dL (12.0-15.6) Hematocrit 38.8% (35.0-46.0) Mean Corpuscular Volume 89.0fL (81-100) Mean Corpuscular Hemoglobin 28.9pg (27.0-35.0) Mean Corpuscular Hemoglobin Concent 32.5% (32.0-37.0) Red Cell Distribution Width 14.5% (12.3-15.4) Platelet Count 283bil/L (150-400) Neutrophils (%) (Auto) 76.2% (40-74) Lymphocytes (%) (Auto) 16.3% (14-46) Monocytes (%) (Auto) 6.3% (4-12) Eosinophils (%) (Auto) 0.4% (0-5) Basophils (%) (Auto) 0.4% (0-3) Prothrombin Time 10.1sec (8.1-12.5) Prothromb Time International Ratio 0.95ratio Sodium Level 139mEq/L (134-144) Potassium Level 3.3mEq/L (3.5-5.2) Chloride Level 100mEq/L (97-108) Carbon Dioxide Level 24mmol/L (18-29) Blood Urea Nitrogen 29mg/dL (8-27) Creatinine 0.95mg/dL (0.57-1.00) Estimat Glomerular Filtration Rate 80mL/min (>59) Glucose Level 101mg/dL (60-99) Hemoglobin A1c 5.4% (4.8-5.6) Calcium Level 9.3mg/dL (8.5-10.1) Total Bilirubin 0.4mg/dL (0.0-1.2) Aspartate Amino Transf (AST/SGOT) 15U/L (0-50) Alanine Aminotransferase (ALT/SGPT) 11U/L (0-32) Alkaline Phosphatase 83U/L (25-165) Troponin T < 0.010ug/L (0.0-0.011) < 0.010ug/L (0.0-0.011) 0.010ug/L (0.0-0.011) Total Protein 7.5g/dL (6.4-8.4) Albumin 3.8g/dL (3.4-5.0) Triglycerides Level 161mg/dL (0-149) Cholesterol Level 238mg/dL (100-199) LDL Cholesterol, Calculated 150.800mg/dL (0-99) VLDL Cholesterol 32.200mg/dL HDL Cholesterol 55mg/dL (>39) Cholesterol/HDL Ratio 4.33 (0.0-4.4) Urine Color Yellow (YELLOW) Urine Appearance Hazy (CLEAR,HAZY) Urine pH 6.5 (5.0-8.0) Urine Specific [place] 1.010 (1.003-1.035) Urine Protein Negativemg/dL (NEG,TRACE) Urine Glucose (UA) Negativemg/dL (NEGATIVE) Urine Ketones Negativemg/dL (NEGATIVE) Urine Occult Blood Negative (NEGATIVE) Urine Nitrite Negative (NEGATIVE) Urine Bilirubin Negative (NEGATIVE) Urine Urobilinogen Normalmg/dL (NORMAL) Urine Leukocyte Esterase Small (NEGATIVE) Urine RBC 0-2/hpf (0-2) Urine WBC 0-5/hpf (0-5) Urine Epithelial Cells Occasional/hpf (NONE-MOD) Urine Crystals None seen (NONE SEEN) Urine Bacteria Few/hpf (NONE-FEW) Urine Hyaline Casts None/lpf (NONE) Urine Granular Casts None seen (NONE SEEN) Urine Waxy Casts None seen (NONE SEEN) Urine Red Blood Cell Casts None seen (NONE SEEN) Urine White Blood Cell Casts None seen (NONE SEEN) Urine Mucus None seen (None Seen) Urine Trichomonas None seen (NONE SEEN) Urine Yeast None (NONE SEEN) Urinalysis Comment None Urine Culture Reflexed Indicated Hold Rice Top Tube Received (Received) Test 05/04/16 05:25 White Blood Count 9.5th/mm3 (3.8-10.1) Red Blood Count 4.01mil/mm3 (3.90-5.20) Hemoglobin 11.8g/dL (12.0-15.6) Hematocrit 35.4% (35.0-46.0) Mean Corpuscular Volume 88.3fL (81-100) Mean Corpuscular Hemoglobin 29.4pg (27.0-35.0) Mean Corpuscular Hemoglobin Concent 33.3% (32.0-37.0) Red Cell Distribution Width 14.4% (12.3-15.4) Platelet Count 261bil/L (150-400) Neutrophils (%) (Auto) 71.8% (40-74) Lymphocytes (%) (Auto) 18.1% (14-46) Monocytes (%) (Auto) 8.8% (4-12) Eosinophils (%) (Auto) 0.6% (0-5) Basophils (%) (Auto) 0.5% (0-3) Sodium Level 141mEq/L (134-144) Potassium Level 3.8mEq/L (3.5-5.2) Chloride Level 102mEq/L (97-108) Carbon Dioxide Level 26mmol/L (18-29) Blood Urea Nitrogen 18mg/dL (8-27) Creatinine 0.81mg/dL (0.57-1.00) Estimat Glomerular Filtration Rate 96mL/min (>59) Glucose Level 109mg/dL (60-99) Calcium Level 9.1mg/dL (8.5-10.1) Total Bilirubin 0.5mg/dL (0.0-1.2) Aspartate Amino Transf (AST/SGOT) 14U/L (0-50) Alanine Aminotransferase (ALT/SGPT) 9U/L (0-32) Alkaline Phosphatase 72U/L (25-165) Total Protein 6.4g/dL (6.4-8.4) Albumin 3.4g/dL (3.4-5.0) Result Diagram: 05/04/1652405/04/16524 Cardiac Echo Impressions Echocardiogram Report Name: MADI BROWNLEE AStudy Date: Height: 61 in Hospital Exam Location: [facility] Weight: 153 lb Gender: Female BSA: 1.7 m2 : 1925 Age: 89 yrs BP: 125/73 mmHg Reason For Study: Atrial fibrillation, CVA Ordering Physician: Performed By: Gonzalez Garcia Referring Physician: ARIEL ZELAYA Interpretation Summary The left ventricle is normal in size. The ejection fraction is estimated to be 60-65%. There is mild mitral regurgitation. The aortic valve is trileaflet. There is mild aortic regurgitation. There is trace tricuspid regurgitation. The right ventricular systolic pressure is estimated at 35 mmHg assuming a right atrial pressure of 3 mm Hg. Procedure: A two-dimensional transthoracic echocardiogram with color flow and Doppler was performed. The study quality was technically adequate. There is no prior echocardiogram noted for this patient. A contrast injection of Definity was performed to improve assessment of LV function. The patient was in normal sinus rhythm during the exam. Left Ventricle: The left ventricle is normal in size. Left ventricular wall thickness is mildly increased. The ejection fraction is estimated to be 60- 65%. Left ventricular wall motion is normal. Assessment of diastolic parameters suggests a pseudonormalization pattern, consistent with elevated filling pressures. Right Ventricle: The right ventricle is normal size. Atria: There is mild biatrial enlargement. The interatrial septum is intact with no evidence for an atrial septal defect. Mitral Valve: The mitral valve leaflets are mildly calcified. There is mild mitral regurgitation. Aortic Valve: The aortic valve is trileaflet. The aortic valve opens well. There is mild aortic regurgitation. Tricuspid Valve: The tricuspid valve is normal. There is trace tricuspid regurgitation. The right ventricular systolic pressure is estimated at 35 mmHg assuming a right atrial pressure of 3 mm Hg. Pulmonic Valve: The pulmonic valve is not well seen, but is grossly normal. There is a trace or physiologic amount of pulmonic regurgitation. Great Vessels: The aortic root is normal size. The ascending aorta is mildly enlarged. The pulmonary artery is normal size. The IVC is of normal diameter and collapses greater than 50% with a sniff. This suggests a low right atrial pressure of 3 mm Hg. Pericardium/ Pleura There is no pericardial effusion. There is no pleural effusion. 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 We will proceed with MRI with and without contrast of head Consider Coumadin therapy to initiate in the next few days. Generally will avoid initiating immediately because of risk of hemorrhagic evolution of this CVA Speech therapy recommends Dobbhoff placement to ensure nutrition and we will go ahead and do this. dyslipidemia --start statin when passes swallow eval UTI --did not discuss w/ family yet --rocephine Chronic issues known prior to admission, present on admission dysphagia/schazski/question of esophageal diverticulum - f/u w/ ENT hypothyroidism HTN recurrent UTI --resume home meds when able to swallow Diet npo DVT prophylaxis lovenox Code full Disposition inpatient Assessment and plan were discussed with patient family. Time spent 30 minutes Jessie Vicente MD May 04, 2016 15:46
--- NOTE | 2016-05-04 16:37 | NUR ---
NUTRITION ASSESSMENT: ASSESS: 89 YO female admitted for CVA. Pt has been unable to pass a swallow eval and dobhoff tube is being recommended by ST for tube feeds which will likely start today. Per notes, pt has been experiencing recent dysphagia and was planning to be evaluated further as an outpt for this. PMHx: UTI, gastric, polyps, HTN, a-fib. LABS: Reviewed. Glu 109, Alb 3.4. MEDS: Reviewed. GI: No BM reported at this time. CURRENT WT: 69.2 kg. DIET: NPO x 2 days. EST. NEEDS: 4583-3894 kcals (25-30 kcals/kg BW), 70-105 g protein (1.0-1.5 g/kg BW), 0074-1732 mL fluids (1 mL/kcal) NUTRITION DIAGNOSIS: 1.) Inadequate oral intake related to decreased ability to consume sufficient energy as evidenced by current NPO status and likely initiation of tube feeds today.. NUTRITION INTERVENTION: 1.) Recommend Jevity 1.5 starting at 20 ML/hr and advancing by 10 ML every 6 hours as tolerated to goal rate of 55 ML/hr x 23 hours to provide 1898 kcals and 80 g protein per day. Recommend fluid flushes of 30 ml every 4 hours while pt is on IV fluids. Once IV fluids are discontinued, recommend flush dose be changed to 40 mL every hour. TF + flush dose will provide 1920 ml free H2O per day. Unsigned TF orders placed in chart pending MD authorization. MONITOR / EVAL: TF tolerance, ST re-eval when appropriate, labs, nutritional status. Follow per high nutritional risk guidelines.
--- NOTE | 2016-05-04 16:47 | NUR ---
spiritual care: pt request introductory visit. family in room encouraging pt to talk. She expressed frustration at speech impediments; family encouraging. Pt appeared to understand. 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
[2016-05-04 18:26] VITALS: BP 136/72; PULSE 79; RESP 16; O2SAT 97
--- NOTE | 2016-05-04 19:23 | NUR ---
louann pt. to have dubhoff tube feed placed this afternoon. Student with instructor and charge nurse at bedside; attempted placement x3; unable to place; will try again in AM. Pt. to have MRI this evening with prn iv ativan prior.
[2016-05-04 20:15] VITALS: BP 157/77; PULSE 88; RESP 18; O2SAT 97
--- NOTE | 2016-05-04 21:32 | NUR ---
ambulated Patient ambulated the length of the hallway twice, using walker, sba with gait belt. no problems with ambulation noted.
[2016-05-05] VITALS (8 sets, daily range): BP systolic 132–146; BP diastolic 67–81; PULSE 64–88; RESP 16–18; O2SAT 96–98
--- NOTE | 2016-05-05 02:18 | NUR ---
MRI Patient off floor for MRI at 2135, results received via fax and night team MD CHIU paged immediately after. Patient ambulates to BR with gait belt, FWW, and SBA. Unable to voice needs, continued s/s of confusion. Bed in low position, call light within reach, bed and Karena alarm on. Family member in room and intentional rounding.
--- NOTE | 2016-05-05 10:19 | PCM.PNMED ---
Subjective Date of Service May 05, 2016 Subjective Patient is sitting up in chair resting comfortably. She did not sleep very well initially last night Trying to pull her IV out. She finally did fall asleep apparently around 4 AM. She did have MRA of brain and neck done yesterday but the results are pending. There were not able to place a Dobbhoff yesterday with multiple attempts. Family member relays that the daughter would really like to not have it placed unless it is really needed. Exam Vital Signs Vital Sign - Last Date Time Temp Pulse Resp B/P Pulse Ox O2 Delivery O2 Flow Rate FiO2 05/05/16 08:08 36.7 82 16 132/81 97 Room Air Intake and Output 05/04/16 05/04/16 05/05/16 Cumulative From/Thru 15:00 23:00 07:00 05/03/16 12:05 - 05/05/16 06:00 Intake Total 674 ml 577 ml 2607 ml Output Total 600 ml 650 ml Balance 674 ml -23 ml 1957 ml Intake Oral 0 ml 0 ml 0 ml IV Total 674 ml 577 ml 2607 ml Output Urine Total 600 ml 650 ml # Voids 5 4 12 # Bowel Movements 2 0 2 Exam Constitutional: Elderly woman sitting comfortably in chair Head: Normocephalic atraumatic Eyes: PERRLA DC EOMI Chest: Clear to auscultation Cor: Regular rate and rhythm S1-S2 Abdomen: Soft nontender bowel sounds present Extremities: No pedal edema Neuro: Patient is alert difficult to assess orientation due to expressive aphasia. She also has a receptive aphasia at times but does follow some commands. Motor strength is intact bilaterally Lab and Diagnostics Result Diagram: 05/04/1652405/04/16524 Cardiac Echo Impressions Echocardiogram Report Name: MADI BROWNLEE AStudy Date: Height: 61 in Hospital Exam Location: [facility] Weight: 153 lb Gender: Female BSA: 1.7 m2 : 1925 Age: 89 yrs BP: 125/73 mmHg Reason For Study: Atrial fibrillation, CVA Ordering Physician: Performed By: Gonzalez Garcia Referring Physician: ARIEL ZELAYA Interpretation Summary The left ventricle is normal in size. The ejection fraction is estimated to be 60-65%. There is mild mitral regurgitation. The aortic valve is trileaflet. There is mild aortic regurgitation. There is trace tricuspid regurgitation. The right ventricular systolic pressure is estimated at 35 mmHg assuming a right atrial pressure of 3 mm Hg. Procedure: A two-dimensional transthoracic echocardiogram with color flow and Doppler was performed. The study quality was technically adequate. There is no prior echocardiogram noted for this patient. A contrast injection of Definity was performed to improve assessment of LV function. The patient was in normal sinus rhythm during the exam. Left Ventricle: The left ventricle is normal in size. Left ventricular wall thickness is mildly increased. The ejection fraction is estimated to be 60- 65%. Left ventricular wall motion is normal. Assessment of diastolic parameters suggests a pseudonormalization pattern, consistent with elevated filling pressures. Right Ventricle: The right ventricle is normal size. Atria: There is mild biatrial enlargement. The interatrial septum is intact with no evidence for an atrial septal defect. Mitral Valve: The mitral valve leaflets are mildly calcified. There is mild mitral regurgitation. Aortic Valve: The aortic valve is trileaflet. The aortic valve opens well. There is mild aortic regurgitation. Tricuspid Valve: The tricuspid valve is normal. There is trace tricuspid regurgitation. The right ventricular systolic pressure is estimated at 35 mmHg assuming a right atrial pressure of 3 mm Hg. Pulmonic Valve: The pulmonic valve is not well seen, but is grossly normal. There is a trace or physiologic amount of pulmonic regurgitation. Great Vessels: The aortic root is normal size. The ascending aorta is mildly enlarged. The pulmonary artery is normal size. The IVC is of normal diameter and collapses greater than 50% with a sniff. This suggests a low right atrial pressure of 3 mm Hg. Pericardium/ Pleura There is no pericardial effusion. There is no pleural effusion. 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 We will proceed with MRA of brain and neck Consider Coumadin therapy to initiate in the next few days. Generally will avoid initiating immediately because of risk of hemorrhagic evolution of this CVA Speech therapy recommends Dobbhoff placement to ensure nutrition and we will go ahead and do this. Unable to get placed and we will go ahead and try holding on this today and have speech reevaluate swallow and consider placement tomorrow if still not able to eat. We will also have OT and PT evaluate. dyslipidemia --start statin when passes swallow eval UTI --did not discuss w/ family yet --rocephine Chronic issues known prior to admission, present on admission dysphagia/schazski/question of esophageal diverticulum - f/u w/ ENT hypothyroidism HTN recurrent UTI --resume home meds when able to swallow Diet npo DVT prophylaxis lovenox Code full Disposition inpatient Assessment and plan were discussed with patient family. Time spent 30 minutes Jessie Vicente MD May 05, 2016 10:19
--- NOTE | 2016-05-05 11:38 | DRSVH ---
PROCEDURE: MRI STROKE PROTOCOL ([id number]) Pre- and post-contrast brain MRI, non-contrast brain MR angiogram, pre- and postcontrast neck MR emanuel ogram INDICATIONS: cva TECHNIQUE: Brain: Noncontrast axial T1 spin echo, axial T2 fast spin echo, sagittal and axial FLAIR, coronal T2 fast spin echo, axial gradient echo, axial diffusion and ADC through the brain. After the administr ation of contrast, axial 3D VIBE of the cranial vasculature and brain. Brain MRA: Non-contrast 3-D time of flight MR angiogram, with multiple dglpyah-xwaqvnqmv-yulzqrepcq (MIP) reformats performed. Neck MRA: Axial and sagittal TruFISP through the neck. Coronal dynamic MR angiogram during administ ration of contrast in the arterial and venous phases, with 3-dimenstional roahaud-zfjkonvth-dzemzuzrw n (MIP) reformats constructed from subtraction images. COMPARISON: None. FINDINGS: Image quality: Excellent. BRAIN: CSF spaces: Ventricles are normal in size and shape. Basal cisterns are patent. No extra-axial flu id collections. Brain: No intracranial bleeds or mass effects. Multiple punctate foci of increased T2 signal noted i n the periventricular and subcortical white matter tracts compatible with mild chronic microvascular ischemic changes. Jennings-white matter interface is normal. Moderate sized area of restricted diffusion with corresponding increased T2 signal is noted in the right parietal and posterior right temporal l obes compatible with subacute infarct. Foci of restricted diffusion with corresponding increased T2 s ignal are noted in the left insula and left balderrama radiata compatible with subacute infarcts. No area s of encephalomalacia are identified. Brainstem appears normal. Normal intravascular flow voids are present. No abnormal intracranial enhancement. Skull and face: Calvarial marrow signal is normal. Orbits appear normal. Sinuses: Small air-fluid level noted in the left maxillary sinus. The mastoids are clear. BRAIN MR ANGIOGRAM: Anterior circulation: Intracranial internal carotid arteries are normal in size and enhancement. Th e flow within the paired anterior cerebral arteries is normal and symmetric. Focal narrowing is noted in the M2 segment of the right middle cerebral artery which could be due to atherosclerotic stenosis versus nonocclusive thrombus. Normal flow is noted in the left vertebral artery. The anterior commun icating artery is seen. No stenoses, occlusions, or aneurysms. Posterior circulation: The visualized portions of the vertebral arteries demonstrate normal caliber, and join to form a normal appearing basilar artery. The flow within the posterior cerebral arteries is normal and symmetric. 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 No stenoses, occlusions, or aneurysms. NECK MR ANGIOGRAM: Carotids: Great vessels demonstrate bovine variant anatomy as they arise from the aortic arch. The origins of the common carotid arteries appear patent. The calibers and courses of both common caroti d arteries are normal. The bifurcation regions appear normal bilaterally. The internal carotid stacy anshu demonstrate normal course and caliber. Posterior circulation: Atherosclerotic irregularity is noted in the origin of the right vertebral art she which causes moderate stenosis. Left vertebral artery is fully patent. More superior portions of both vertebral arteries demonstrate normal course and caliber, and join to form a normal appearing ba silar artery. Miscellaneous: Subclavian arteries appear patent. Pre-contrast images through the neck show no soft tissue abnormalities. IMPRESSION: BRAIN MRI: 1. Moderate-sized subacute infarct involving the right temporal-parietal lobes and multiple, small arcos bacute infarcts involving the left insula and left balderrama radiata. 2. Mild, diffuse volume loss. 3. Mild paratracheal and subcortical white matter chronic microvascular ischemic changes. 3. Small left maxillary sinus air-fluid level. Please correlate with clinical data to exclude acute s inusitis. BRAIN MR ANGIOGRAM: 1. Focal narrowing involving the M2 segment of the right middle cerebral artery compatible with ather osclerotic stenosis versus nonocclusive thrombus. 2. Otherwise, negative MR angiogram of the head. NECK MR ANGIOGRAM: 1. Internal carotid arteries are fully patent bilaterally. 2. Left vertebral artery is fully patent. 3. 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 The estimate of stenosis included in the report of the imaging study was calculated using the NASCET method Dictated by: Barbara Shaikh MD, PhD on 05/05/2016 at 11:37 Approved by: Barbara Shaikh MD, PhD on 05/05/2016 at 11:37
[2016-05-05] MEDS: D5 0.45% NaCl + KCl 20 mEq/L 1,000 ML IV SCH ×2 (12:55→22:20)
--- NOTE | 2016-05-05 13:56 | NUR ---
Activity P: pt restless, pulling on her shaniqua and IV this am I: distracted pt by ambulated in hallway, up sitting in chair E: stable gait, sat up in chair for 3 1/2 hrs, resting in chair comfortably
--- NOTE | 2016-05-05 13:59 | NUR ---
NUTRITION FOLLOW-UP: ASSESS: 89 YO female admitted for CVA. Pt has been unable to pass a swallow eval and dobhoff tube is being recommended by for tube feeds. Unfortunately, NGT was attempted to be place and failedx3 03/04. At this point, family does not want another attempt at placing an NGT. ST is to re-evaluate pt today. Pt has been NPOx3 days. PMHx: UTI, gastric, polyps, HTN, a-fib. LABS: Reviewed. Glu 109 MEDS: Reviewed. GI: No BM reported at this time. CURRENT WT: 69.6 kg, BMI 29kg/m2, admit wt: 65.9kg DIET: NPO x 3 days. EST. NEEDS: 2336-8208 kcals (25-30 kcals/kg BW), 70-105 g protein (1.0-1.5 g/kg BW), 4232-6968 mL fluids (1 mL/kcal) NUTRITION DIAGNOSIS: 1.) Inadequate oral intake related to decreased ability to consume sufficient energy as evidenced by current NPO status and possible need for nutrition support--PERSISTS NUTRITION INTERVENTION: 1.) Diet advance per ST 2.) If pt continues to fail ST eval, recommend re-attempt placement of NGT so pt can receive adequate nutrition to help pt maintain strength for rehab. Recommend Jevity 1.5 starting at 20 ML/hr, advance by 10 ML every 6 hours as tolerated to goal rate of 60 ML/hr x 23 hours to provide 2070 kcals and 88 g protein per day. Recommend fluid flushes of 40 ml every 4 hours while pt is on IV fluids. Once IV fluids are discontinued, recommend flush dose be changed to 110 mL every 3hrs. TF + flush dose will provide 1930ml free H2O per day. Unsigned TF orders placed in chart pending NGT placement/ ST eval. MONITOR / EVAL: TF start?, ST re-eval, wt, GI, labs, nutritional status. Follow per high nutritional risk guidelines.
--- NOTE | 2016-05-05 19:36 | NUR ---
Blood sugar/Activity Pt's BG was 81 at 1717 when taken by student nurse. Rechecked at 1853 and it was 75. Pt is asymptomatic and MD aware of low level. MD states pt is now allowed stim diet, and it is on board in room, but no speech therapy note seen. Pt given 1 packet of sugar under tongue and bites of applesauce. Pt able to tolerate food w/o coughing or gagging. Night RN aware and will recheck BG. Pt up ambulating multiple times in hallways and up to recliner. Needs redirection when going to BR or OOB. Pt's IV is in AC and continues to have distal occlusion, rolled washcloth with yvon bandage applied to help.
[2016-05-05] MEDS: cefTRIAXone Inj 1,000 MG in IV Premix 1 EACH IV SCH (23:00)
[2016-05-06] VITALS (8 sets, daily range): BP systolic 129–152; BP diastolic 67–81; PULSE 65–85; RESP 16–17; O2SAT 94–100
[2016-05-06 05:39] LABS: BASOPHILS % (AUTO) 0.8 % (0-3); EOSINOPHILS % (AUTO) 6.4 % (0-5); MONOCYTES % (AUTO) 9.5 % (4-12); Mean Corpuscular Hemoglobin 29.4 pg (27.0-35.0); Mean Corpuscular Volume 90.2 fL (81-100); NEUTROPHILS % (AUTO) 61.9 % (40-74); Platelet Count 233 bil/L (150-400)
--- NOTE | 2016-05-06 06:59 | NUR ---
Activity, Diet PER MD Diet advanced w/ applesauce trial due to CS 75: Pt tolerate applesauce and yogurt with no signs of aspiration. Glucose monitored through the night. IV at L ac infiltrated and leaked unknown amount of fluid, attempts made for IV access by 2RNs, no ABX given this shift. Family member in room this shift providing supervision and cares; pt impulsive ambulates to bathroom without calling for assist. Will continue cares
--- NOTE | 2016-05-06 08:30 | NUR ---
NEURO This television script writer was called in by the patients daughter since patient was noted to have pulled her IV out. No IV access at this time. She continues to be aphasic. Unable to answer appropriately. Equal hand advertising sales assistant/BLE strength. No facial drooping noted. Patient is able to follow some instructions. Redirection is needed. 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 Dr. Chairez made aware RE: No IV access and updated MD RE: Patients neuro status. Speech eval is pending at this time. Will continue to monitor.
[2016-05-06] MEDS: D5 0.45% NaCl + KCl 20 mEq/L 1,000 ML IV SCH ×2 (11:40→20:08)
--- NOTE | 2016-05-06 12:57 | PCM.PNMED ---
Subjective Date of Service May 06, 2016 Subjective Patient seen this morning, in no acute distress with family around. Patient only with stimulant diet, with applesauce but will need further observation of swallow function prior to discharge. Denied chest pain or shortness of breath Exam Vital Signs Vital Sign - Last Date Time Temp Pulse Resp B/P Pulse Ox O2 Delivery O2 Flow Rate FiO2 05/06/16 12:20 Room Air 05/06/16 10:30 36.4 65 16 131/75 94 Intake and Output 05/05/16 05/05/16 05/06/16 Cumulative From/Thru 15:00 23:00 07:00 05/03/16 12:05 - 05/06/16 05:33 Intake Total 0 ml 1372 ml 3979 ml Output Total 50 ml 100 ml 800 ml Balance -50 ml 1272 ml 3179 ml Intake Oral 0 ml 25 ml 25 ml IV Total 1347 ml 3954 ml Output Urine Total 50 ml 100 ml 800 ml # Voids 2 3 17 # Bowel Movements 0 0 2 Exam Constitutional: Elderly woman sitting comfortably in chair Head: Normocephalic atraumatic Eyes: PERRLA DC EOMI Chest: Clear to auscultation Cor: Regular rate and rhythm S1-S2 Abdomen: Soft nontender bowel sounds present Extremities: No pedal edema Neuro: Patient is alert difficult to assess orientation due to expressive aphasia. She also has a receptive aphasia at times but does follow some commands. Motor strength is intact bilaterally IVs and Medications Medications Reviewed: Medications were reviewed in detail Lab and Diagnostics Result Diagram: 05/06/16 0506 05/06/16 0506 X-Rays, CTs and MRIs IMPRESSION: 1. Less than 50% bilateral internal carotid artery stenosis. 2. Patent bilateral vertebral arteries. Dictated by: Aditya Aguirre M.D. on 05/03/2016 at 18:49 IMPRESSION: BRAIN MRI: 1. Moderate-sized subacute infarct involving the right temporal-parietal lobes and multiple, small subacute infarcts involving the left insula and left balderrama radiata. 2. Mild, diffuse volume loss. 3. Mild paratracheal and subcortical white matter chronic microvascular ischemic changes. 3. Small left maxillary sinus air-fluid level. Please correlate with clinical data to exclude acute sinusitis. BRAIN MR ANGIOGRAM: 1. Focal narrowing involving the M2 segment of the right middle cerebral artery compatible with atherosclerotic stenosis versus nonocclusive thrombus. 2. Otherwise, negative MR angiogram of the head. NECK MR ANGIOGRAM: 1. Internal carotid arteries are fully patent bilaterally. 2. Left vertebral artery is fully patent. 3. 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 The estimate of stenosis included in the report of the imaging study was calculated using the NASCET method Dictated by: Barbara Shaikh MD, PhD on 05/05/2016 at 11:37 Cardiac Echo Impressions Echocardiogram Report Name: MADI BROWNLEE AStudpelon Date: Height: 61 in Hospital Exam Location: [facility] Weight: 153 lb Gender: Female BSA: 1.7 m2 : 1925 Age: 89 yrs BP: 125/73 mmHg Reason For Study: Atrial fibrillation, CVA Ordering Physician: Performed By: Gonzalez Garcia Referring Physician: ARIEL ZELAYA Interpretation Summary The left ventricle is normal in size. The ejection fraction is estimated to be 60-65%. There is mild mitral regurgitation. The aortic valve is trileaflet. There is mild aortic regurgitation. There is trace tricuspid regurgitation. The right ventricular systolic pressure is estimated at 35 mmHg assuming a right atrial pressure of 3 mm Hg. Procedure: A two-dimensional transthoracic echocardiogram with color flow and Doppler was performed. The study quality was technically adequate. There is no prior echocardiogram noted for this patient. A contrast injection of Definity was performed to improve assessment of LV function. The patient was in normal sinus rhythm during the exam. Left Ventricle: The left ventricle is normal in size. Left ventricular wall thickness is mildly increased. The ejection fraction is estimated to be 60- 65%. Left ventricular wall motion is normal. Assessment of diastolic parameters suggests a pseudonormalization pattern, consistent with elevated filling pressures. Right Ventricle: The right ventricle is normal size. Atria: There is mild biatrial enlargement. The interatrial septum is intact with no evidence for an atrial septal defect. Mitral Valve: The mitral valve leaflets are mildly calcified. There is mild mitral regurgitation. Aortic Valve: The aortic valve is trileaflet. The aortic valve opens well. There is mild aortic regurgitation. Tricuspid Valve: The tricuspid valve is normal. There is trace tricuspid regurgitation. The right ventricular systolic pressure is estimated at 35 mmHg assuming a right atrial pressure of 3 mm Hg. Pulmonic Valve: The pulmonic valve is not well seen, but is grossly normal. There is a trace or physiologic amount of pulmonic regurgitation. Great Vessels: The aortic root is normal size. The ascending aorta is mildly enlarged. The pulmonary artery is normal size. The IVC is of normal diameter and collapses greater than 50% with a sniff. This suggests a low right atrial pressure of 3 mm Hg. Pericardium/ Pleura There is no pericardial effusion. There is no pleural effusion. 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 MRA of brain and neck results as listed with e/o CVA Consider Coumadin therapy to initiate in the next few days with PCP f/u. Generally will avoid initiating immediately because of risk of hemorrhagic evolution of this CVA Speech therapy recommends Dobbhoff placement to ensure nutrition but d/t pt preference have held off so far - will continue to monitor swallow evaluation - if needed, consider dobhoff placement tomorrow if still not able to eat - speech with stimulated diet We will also have OT and PT evaluate. dyslipidemia --start statin when passes swallow eval UTI --did not discuss w/ family yet --rocephin IV - pt pulled IV so will switch to PO cefuroxime Chronic issues known prior to admission, present on admission dysphagia/schazski/question of esophageal diverticulum - f/u w/ ENT hypothyroidism HTN recurrent UTI --resume home meds when able to swallow Diet npo DVT prophylaxis lovenox Code full Disposition inpatient, monitor swallow eval to ensure adequeate nutrition Or dobhoff placement tomorrow Assessment and plan were discussed with patientand family. Pain Evaluation: Adequate Pain Control VTE Mechanical Devices: Intermittant Pneumatic CD Resuscitation Status: CPR: Attempt Resuscitation Time spent 40 minutes spent with evaluation and management Tyron Chairez DO May 06, 2016 12:57
--- NOTE | 2016-05-06 15:37 | NUR ---
Social Work: Continued Discharge Planning Data & Assessment: Golf Teacher met with patient and patient's daughter at bedside and notified them that PT was recommending Home health for discharge. SW provided them with a list of in-network home health providers. Patient's family chose [facility] for [facility]. Golf Teacher will give [facility] access and give [facility] the F2[facility]. SW requested that the family bring in the patient's walker son that it could be adjusted by PT. Patient's family stated that they would bring in the patient's walker. Patient likely to discharge home with spouse and home health when medically ready for discharge. Golf Teacher will continue to follow. Plan: Patient will discharge home with spouse and [facility]. Patient will transport ome via POV. SW will continue to follow. Pau Justin LMSW, ROJAS
--- NOTE | 2016-05-06 15:38 | NUR ---
NUTRITION FOLLOW-UP: ASSESS: 89 YO female admitted for CVA. Diet advanced per ST to dysphagia mechanical w/ thin liquids. Pt has a good appetite. Her does most of the cooking at home and makes protein smoothies for pt. She denies any recent wt loss. PMHx: UTI, gastric, polyps, HTN, a-fib. LABS: Reviewed. MEDS: Reviewed. GI: BM x2 05/04 CURRENT WT: 70 kg, BMI 29.2 kg/m2, admit wt: 65.9kg DIET: Dysphagia mechanical, PO 50% x1 meal EST. NEEDS: 8532-8906 kcals (25-30 kcals/kg BW), 70-105 g protein (1.0-1.5 g/kg BW), 7972-1612 mL fluids (1 mL/kcal) NUTRITION DIAGNOSIS: 1.) Inadequate oral intake related to decreased ability to consume sufficient energy as evidenced by current NPO status and possible need for nutrition support--IMPROVED NUTRITION INTERVENTION: 1.) Encouraged adequate calorie/protein intake 2.) Smoothie recipe book provided. 3.) Reviewed dysphagia mechanical diet - pt's with no further questions. MONITOR / EVAL: PO intake, wt, GI, labs, nutritional status. Follow per moderate nutritional risk guidelines.
--- NOTE | 2016-05-06 19:43 | NUR ---
ACTIVITY Via FELDT scale patient's pain level is 0/10. Diet was advanced by SPT to mechanical soft. Tolerated diet fairly. Denies nausea. No emesis noted. Ambulated in the hallway and in the room with SBA and thew FWW. Tolerated activity well. Voiding without any problems. Refused IV placement. MD is aware that patient has no IV access. Karena alarm is on. Family has been in the room at all times.
[2016-05-07 04:45] VITALS: BP 140/67; PULSE 89; RESP 16; O2SAT 95
[2016-05-07 05:36] LABS: BASOPHILS % (AUTO) 0.5 % (0-3); EOSINOPHILS % (AUTO) 4.5 % (0-5); Mean Corpuscular Hemoglobin 29.2 pg (27.0-35.0); Mean Corpuscular Volume 89.9 fL (81-100); NEUTROPHILS % (AUTO) 68.6 % (40-74); Platelet Count 242 bil/L (150-400)
[2016-05-07 05:42] VITALS: PULSE 80
--- NOTE | 2016-05-07 06:04 | NUR ---
Activity Pt up with GROUP INSURANCE SPECIALIST SBA with [employer] to bathroom x5, tolerated very well. Bilateral equal strength during ambulation. Follows most commands, answers with YES, NO, OK, [facility]. No other verbal response.
--- NOTE | 2016-05-07 07:18 | PCM.PNMED ---
Subjective Date of Service May 07, 2016 Subjective pain controlled - no acute events overnight, no cp/sob - tolerating FWW ambulation to bathroom, appreciate nutrition recs Exam Vital Signs Vital Sign - Last Date Time Temp Pulse Resp B/P Pulse Ox O2 Delivery O2 Flow Rate FiO2 05/07/16 05:42 80 05/07/16 04:45 37.0 16 140/67 95 Room Air Intake and Output 05/06/16 05/06/16 05/07/16 Cumulative From/Thru 15:00 23:00 07:00 05/03/16 12:05 - 05/07/16 05:33 Intake Total 336 ml 200 ml 4515 ml Output Total 800 ml Balance 336 ml 200 ml 3715 ml Intake Oral 336 ml 200 ml 561 ml IV Total 0 ml 3954 ml Output Urine Total 800 ml # Voids 3 5 25 # Bowel Movements 0 0 2 Exam Constitutional: Elderly woman sitting comfortably in chair Head: Normocephalic atraumatic Eyes: PERRLA DC EOMI Chest: Clear to auscultation Cor: Regular rate and rhythm S1-S2 Abdomen: Soft nontender bowel sounds present Extremities: No pedal edema Neuro: IVs and Medications Medications Reviewed: Medications were reviewed in detail Lab and Diagnostics Result Diagram: 05/07/1651805/07/16518 X-Rays, CTs and MRIs IMPRESSION: 1. Less than 50% bilateral internal carotid artery stenosis. 2. Patent bilateral vertebral arteries. Dictated by: Aditya Aguirre M.D. on 05/03/2016 at 18:49 IMPRESSION: BRAIN MRI: 1. Moderate-sized subacute infarct involving the right temporal-parietal lobes and multiple, small subacute infarcts involving the left insula and left balderrama radiata. 2. Mild, diffuse volume loss. 3. Mild paratracheal and subcortical white matter chronic microvascular ischemic changes. 3. Small left maxillary sinus air-fluid level. Please correlate with clinical data to exclude acute sinusitis. BRAIN MR ANGIOGRAM: 1. Focal narrowing involving the M2 segment of the right middle cerebral artery compatible with atherosclerotic stenosis versus nonocclusive thrombus. 2. Otherwise, negative MR angiogram of the head. NECK MR ANGIOGRAM: 1. Internal carotid arteries are fully patent bilaterally. 2. Left vertebral artery is fully patent. 3. 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 The estimate of stenosis included in the report of the imaging study was calculated using the NASCET method Dictated by: Barbara Shaikh MD, PhD on 05/05/2016 at 11:37 Cardiac Echo Impressions Echocardiogram Report Name: MADI BROWNLEE Date: Height: 61 in Hospital Exam Location: [facility] Weight: 153 lb Gender: Female BSA: 1.7 m2 : 1925 Age: 89 yrs BP: 125/73 mmHg Reason For Study: Atrial fibrillation, CVA Ordering Physician: Performed By: Gonzalez Garcia Referring Physician: ARIEL ZELAYA Interpretation Summary The left ventricle is normal in size. The ejection fraction is estimated to be 60-65%. There is mild mitral regurgitation. The aortic valve is trileaflet. There is mild aortic regurgitation. There is trace tricuspid regurgitation. The right ventricular systolic pressure is estimated at 35 mmHg assuming a right atrial pressure of 3 mm Hg. Procedure: A two-dimensional transthoracic echocardiogram with color flow and Doppler was performed. The study quality was technically adequate. There is no prior echocardiogram noted for this patient. A contrast injection of Definity was performed to improve assessment of LV function. The patient was in normal sinus rhythm during the exam. Left Ventricle: The left ventricle is normal in size. Left ventricular wall thickness is mildly increased. The ejection fraction is estimated to be 60- 65%. Left ventricular wall motion is normal. Assessment of diastolic parameters suggests a pseudonormalization pattern, consistent with elevated filling pressures. Right Ventricle: The right ventricle is normal size. Atria: There is mild biatrial enlargement. The interatrial septum is intact with no evidence for an atrial septal defect. Mitral Valve: The mitral valve leaflets are mildly calcified. There is mild mitral regurgitation. Aortic Valve: The aortic valve is trileaflet. The aortic valve opens well. There is mild aortic regurgitation. Tricuspid Valve: The tricuspid valve is normal. There is trace tricuspid regurgitation. The right ventricular systolic pressure is estimated at 35 mmHg assuming a right atrial pressure of 3 mm Hg. Pulmonic Valve: The pulmonic valve is not well seen, but is grossly normal. There is a trace or physiologic amount of pulmonic regurgitation. Great Vessels: The aortic root is normal size. The ascending aorta is mildly enlarged. The pulmonary artery is normal size. The IVC is of normal diameter and collapses greater than 50% with a sniff. This suggests a low right atrial pressure of 3 mm Hg. Pericardium/ Pleura There is no pericardial effusion. There is no pleural effusion. 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 MRA of brain and neck results as listed with e/o CVA Consider Coumadin therapy to initiate in the next few days with PCP f/u. Generally will avoid initiating immediately because of risk of hemorrhagic evolution of this CVA Speech therapy recommended Dobbhoff placement to ensure nutrition but appetite has improved, nutrition recs appreciated We will also have OT and PT evaluate. Dyslipidemia --start statin when passes swallow eval UTI --did not discuss w/ family yet --rocephin IV - pt pulled IV so will switch to PO cefuroxime Chronic issues known prior to admission, present on admission dysphagia/schazski/question of esophageal diverticulum - f/u w/ ENT hypothyroidism HTN recurrent UTI --resume home meds when able to swallow Diet npo DVT prophylaxis lovenox Code full Disposition inpatient, [facility] soft diet today Assessment and plan were discussed with patientand family. Pain Evaluation: Adequate Pain Control VTE Mechanical Devices: Intermittant Pneumatic CD Resuscitation Status: CPR: Attempt Resuscitation Time spent 30 minutes spent Tyron Chairez DO May 07, 2016 07:18
[2016-05-07 08:21] VITALS: BP 145/70; PULSE 75; RESP 16; O2SAT 95
[2016-05-07 09:44] VITALS: PULSE 80
--- NOTE | 2016-05-07 11:58 | NUR ---
Social Work: Discharge Plan Data & Assessment: Supplier Specialist spoke with patient and patient's daughter, Dari, at bedside to discuss discharge plan. Patient will discharge home with family and [facility]. [facility] has been given access and the home health order was faxed. Patient's daughter also stated that the patient will have a 24-hour caregiver until 05/11/16. SW will continue to follow. Plan: Home with HH, Family support and 24-hour caregiver. SW will continue to follow. Pau Justin LMSW, ACM
--- NOTE | 2016-05-07 12:27 | PCM.DIMED ---
Discharge Instructions Date of Service May 07, 2016 Dates of Hospitalization May 03, 2016 at 17:24 Discharge Diagnosis Discharge Diagnosis acute L MCA cva acute UTI HLP HTN hypothyroidism Test Results X-Rays, CTs and MRIs IMPRESSION: 1. Less than 50% bilateral internal carotid artery stenosis. 2. Patent bilateral vertebral arteries. Dictated by: Aditya Aguirre M.D. on 05/03/2016 at 18:49 IMPRESSION: BRAIN MRI: 1. Moderate-sized subacute infarct involving the right temporal-parietal lobes and multiple, small subacute infarcts involving the left insula and left balderrama radiata. 2. Mild, diffuse volume loss. 3. Mild paratracheal and subcortical white matter chronic microvascular ischemic changes. 3. Small left maxillary sinus air-fluid level. Please correlate with clinical data to exclude acute sinusitis. BRAIN MR ANGIOGRAM: 1. Focal narrowing involving the M2 segment of the right middle cerebral artery compatible with atherosclerotic stenosis versus nonocclusive thrombus. 2. Otherwise, negative MR angiogram of the head. NECK MR ANGIOGRAM: 1. Internal carotid arteries are fully patent bilaterally. 2. Left vertebral artery is fully patent. 3. 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 The estimate of stenosis included in the report of the imaging study was calculated using the NASCET method Dictated by: Barbara Shaikh MD, PhD on 05/05/2016 at 11:37 Cardiac Echo Impressions Echocardiogram Report Name: MADI BROWNLEE Date: Height: 61 in Hospital Exam Location: [facility] Weight: 153 lb Gender: Female BSA: 1.7 m2 : 1925 Age: 89 yrs BP: 125/73 mmHg Reason For Study: Atrial fibrillation, CVA Ordering Physician: Performed By: Gonzalez Garcia Referring Physician: ARIEL ZELAYA Interpretation Summary The left ventricle is normal in size. The ejection fraction is estimated to be 60-65%. There is mild mitral regurgitation. The aortic valve is trileaflet. There is mild aortic regurgitation. There is trace tricuspid regurgitation. The right ventricular systolic pressure is estimated at 35 mmHg assuming a right atrial pressure of 3 mm Hg. Procedure: A two-dimensional transthoracic echocardiogram with color flow and Doppler was performed. The study quality was technically adequate. There is no prior echocardiogram noted for this patient. A contrast injection of Definity was performed to improve assessment of LV function. The patient was in normal sinus rhythm during the exam. Left Ventricle: The left ventricle is normal in size. Left ventricular wall thickness is mildly increased. The ejection fraction is estimated to be 60- 65%. Left ventricular wall motion is normal. Assessment of diastolic parameters suggests a pseudonormalization pattern, consistent with elevated filling pressures. Right Ventricle: The right ventricle is normal size. Atria: There is mild biatrial enlargement. The interatrial septum is intact with no evidence for an atrial septal defect. Mitral Valve: The mitral valve leaflets are mildly calcified. There is mild mitral regurgitation. Aortic Valve: The aortic valve is trileaflet. The aortic valve opens well. There is mild aortic regurgitation. Tricuspid Valve: The tricuspid valve is normal. There is trace tricuspid regurgitation. The right ventricular systolic pressure is estimated at 35 mmHg assuming a right atrial pressure of 3 mm Hg. Pulmonic Valve: The pulmonic valve is not well seen, but is grossly normal. There is a trace or physiologic amount of pulmonic regurgitation. Great Vessels: The aortic root is normal size. The ascending aorta is mildly enlarged. The pulmonary artery is normal size. The IVC is of normal diameter and collapses greater than 50% with a sniff. This suggests a low right atrial pressure of 3 mm Hg. Pericardium/ Pleura There is no pericardial effusion. There is no pleural effusion. MMode/2D Measurements & Calculations LVIDd: 4.6 cm RA long axis: 4.8 cm LVOT diam: 1.8 cm LVIDs: 2.8 cmLA A2 area: 17.9 cm AoV Openin.4 cm FS: 39.2 % LA A4 area: 20.2 cm RA area: 19.4 cm Ao root diam EPSS: 0.67 cmLA length (vol) RA vol: 66.6 ml IVSd: 1.0 cm RA : 39.5 ml/m2 asc Aorta Diam LVPWd: 1.0 cmLA vol: 59.0 ml LA vol index Ao Arch Diam (Prox Trans): 3.2 cm Diet Heart Healthy Activity Home Health Phyical Therapy, Other (visiting nursing and occupational and physical therapy - HH) Call your provider Fever or Chills, Shortness of breath, Bleeding, Chest pain, Vomitting Patient Instructions You were admitted for a stroke and will be discharged wiht home health physical therapy, occupational therapy, and nursing. Please take all your medications as instructed. You were treated for a UTI as well. Please follow up with your PCP in 1 wk by calling to make an appt please continue with a mechanical (soft) thickness diet w/ thin liquids. A good plan would be to have your make protein smoothies Specific caloric needs information: (not needed to follow specifically but just FYI) 3067-1799 kcals (25-30 kcals/kg BW), 70-105 g protein (1.0-1.5 g/kg BW), 3755-9587 mL fluids (1 mL/kcal) Follow-up plan as above Follow-up with PCP in: 1 week Tyron Chairez DO May 07, 2016 12:27
[2016-05-07] MEDS ORDERED: ATOR40TA69 PO (12:28)
--- NOTE | 2016-05-07 12:36 | PCM.DC.MED ---
Discharge Summary Date of Service May 07, 2016 Dates of Hospitalization Date of Hospital Admission May 03, 2016 at 17:24 Date of Discharge: May 07, 2016 Providers: Admitting Physician: Ariel Deluca MD Primary Care Physician: Catalina Shanks Attending Physician: Ariel Deluca MD Diagnosis at Time of Discharge Diagnosis at Time of Discharge acute L MCA cva acute UTI HLP HTN hypothyroidism Consultations none Procedures XRay, CTs & MRIs IMPRESSION: 1. Less than 50% bilateral internal carotid artery stenosis. 2. Patent bilateral vertebral arteries. Dictated by: Aditya Aguirre M.D. on 05/03/2016 at 18:49 IMPRESSION: BRAIN MRI: 1. Moderate-sized subacute infarct involving the right temporal-parietal lobes and multiple, small subacute infarcts involving the left insula and left balderrama radiata. 2. Mild, diffuse volume loss. 3. Mild paratracheal and subcortical white matter chronic microvascular ischemic changes. 3. Small left maxillary sinus air-fluid level. Please correlate with clinical data to exclude acute sinusitis. BRAIN MR ANGIOGRAM: 1. Focal narrowing involving the M2 segment of the right middle cerebral artery compatible with atherosclerotic stenosis versus nonocclusive thrombus. 2. Otherwise, negative MR angiogram of the head. NECK MR ANGIOGRAM: 1. Internal carotid arteries are fully patent bilaterally. 2. Left vertebral artery is fully patent. 3. 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 The estimate of stenosis included in the report of the imaging study was calculated using the NASCET method Dictated by: Barbara Shaikh MD, PhD on 05/05/2016 at 11:37 IMPRESSION: 1. Less than 50% bilateral internal carotid artery stenosis. 2. Patent bilateral vertebral arteries. Dictated by: Aditya Aguirre M.D. on 05/03/2016 at 18:49 IMPRESSION: BRAIN MRI: 1. Moderate-sized subacute infarct involving the right temporal-parietal lobes and multiple, small subacute infarcts involving the left insula and left balderrama radiata. 2. Mild, diffuse volume loss. 3. Mild paratracheal and subcortical white matter chronic microvascular ischemic changes. 3. Small left maxillary sinus air-fluid level. Please correlate with clinical data to exclude acute sinusitis. BRAIN MR ANGIOGRAM: 1. Focal narrowing involving the M2 segment of the right middle cerebral artery compatible with atherosclerotic stenosis versus nonocclusive thrombus. 2. Otherwise, negative MR angiogram of the head. NECK MR ANGIOGRAM: 1. Internal carotid arteries are fully patent bilaterally. 2. Left vertebral artery is fully patent. 3. 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 The estimate of stenosis included in the report of the imaging study was calculated using the NASCET method Dictated by: Barbara Shaikh MD, PhD on 05/05/2016 at 11:37 Cardiac Echo Impressions Echocardiogram Report Name: MADI BROWNLEE Date: Height: 61 in Hospital Exam Location: [facility] Weight: 153 lb Gender: Female BSA: 1.7 m2 : 1925 Age: 89 yrs BP: 125/73 mmHg Reason For Study: Atrial fibrillation, CVA Ordering Physician: Performed By: Gonzalez Garcia Referring Physician: ARIEL DELUCA Interpretation Summary The left ventricle is normal in size. The ejection fraction is estimated to be 60-65%. There is mild mitral regurgitation. The aortic valve is trileaflet. There is mild aortic regurgitation. There is trace tricuspid regurgitation. The right ventricular systolic pressure is estimated at 35 mmHg assuming a right atrial pressure of 3 mm Hg. Procedure: A two-dimensional transthoracic echocardiogram with color flow and Doppler was performed. The study quality was technically adequate. There is no prior echocardiogram noted for this patient. A contrast injection of Definity was performed to improve assessment of LV function. The patient was in normal sinus rhythm during the exam. Left Ventricle: The left ventricle is normal in size. Left ventricular wall thickness is mildly increased. The ejection fraction is estimated to be 60- 65%. Left ventricular wall motion is normal. Assessment of diastolic parameters suggests a pseudonormalization pattern, consistent with elevated filling pressures. Right Ventricle: The right ventricle is normal size. Atria: There is mild biatrial enlargement. The interatrial septum is intact with no evidence for an atrial septal defect. Mitral Valve: The mitral valve leaflets are mildly calcified. There is mild mitral regurgitation. Aortic Valve: The aortic valve is trileaflet. The aortic valve opens well. There is mild aortic regurgitation. Tricuspid Valve: The tricuspid valve is normal. There is trace tricuspid regurgitation. The right ventricular systolic pressure is estimated at 35 mmHg assuming a right atrial pressure of 3 mm Hg. Pulmonic Valve: The pulmonic valve is not well seen, but is grossly normal. There is a trace or physiologic amount of pulmonic regurgitation. Great Vessels: The aortic root is normal size. The ascending aorta is mildly enlarged. The pulmonary artery is normal size. The IVC is of normal diameter and collapses greater than 50% with a sniff. This suggests a low right atrial pressure of 3 mm Hg. Pericardium/ Pleura There is no pericardial effusion. There is no pleural effusion. Cardiac Echo Impression Echocardiogram Report Name: MADI BROWNLEE Date: Height: 61 in Hospital Exam Location: [facility] Weight: 153 lb Gender: Female BSA: 1.7 m2 : 1925 Age: 89 yrs BP: 125/73 mmHg Reason For Study: Atrial fibrillation, CVA Ordering Physician: Performed By: Gonzalez Garcia Referring Physician: ARIEL DELUCA Interpretation Summary The left ventricle is normal in size. The ejection fraction is estimated to be 60-65%. There is mild mitral regurgitation. The aortic valve is trileaflet. There is mild aortic regurgitation. There is trace tricuspid regurgitation. The right ventricular systolic pressure is estimated at 35 mmHg assuming a right atrial pressure of 3 mm Hg. Procedure: A two-dimensional transthoracic echocardiogram with color flow and Doppler was performed. The study quality was technically adequate. There is no prior echocardiogram noted for this patient. A contrast injection of Definity was performed to improve assessment of LV function. The patient was in normal sinus rhythm during the exam. Left Ventricle: The left ventricle is normal in size. Left ventricular wall thickness is mildly increased. The ejection fraction is estimated to be 60- 65%. Left ventricular wall motion is normal. Assessment of diastolic parameters suggests a pseudonormalization pattern, consistent with elevated filling pressures. Right Ventricle: The right ventricle is normal size. Atria: There is mild biatrial enlargement. The interatrial septum is intact with no evidence for an atrial septal defect. Mitral Valve: The mitral valve leaflets are mildly calcified. There is mild mitral regurgitation. Aortic Valve: The aortic valve is trileaflet. The aortic valve opens well. There is mild aortic regurgitation. Tricuspid Valve: The tricuspid valve is normal. There is trace tricuspid regurgitation. The right ventricular systolic pressure is estimated at 35 mmHg assuming a right atrial pressure of 3 mm Hg. Pulmonic Valve: The pulmonic valve is not well seen, but is grossly normal. There is a trace or physiologic amount of pulmonic regurgitation. Great Vessels: The aortic root is normal size. The ascending aorta is mildly enlarged. The pulmonary artery is normal size. The IVC is of normal diameter and collapses greater than 50% with a sniff. This suggests a low right atrial pressure of 3 mm Hg. Pericardium/ Pleura There is no pericardial effusion. There is no pleural effusion. MMode/2D Measurements & Calculations LVIDd: 4.6 cm RA long axis: 4.8 cm LVOT diam: 1.8 cm LVIDs: 2.8 cmLA A2 area: 17.9 cm AoV Openin.4 cm FS: 39.2 % LA A4 area: 20.2 cm RA area: 19.4 cm Ao root diam EPSS: 0.67 cmLA length (vol) RA vol: 66.6 ml IVSd: 1.0 cm RA : 39.5 ml/m2 asc Aorta Diam LVPWd: 1.0 cmLA vol: 59.0 ml LA vol index Ao Arch Diam (Prox Trans): 3.2 cm Brief History 89 y right handed f w. normal neurological status prior to bed last night, woke up this morning being less verbally responsive to , then walked to living room by herself, sat in chair then saw her spill glass of water on shirt w/ shaking/weak right hand, was able to give her ASA this morning though, then prsented to ER w/ progressive global aphasia / right upper extremity-facial weakness. Afib was newly diagnosed 1 week ago w/ ASA x 1 week, unable to follow up with manager integrity yet. no headahce. neg nuc med scan [address] 83% Dr Cai on the 05/12 Per EMS BP 144/88, pulse 86, pulse ox 94%. 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 MRA of brain and neck results as listed with e/o CVA Consider Coumadin therapy to initiate in the next few days with PCP f/u. Generally will avoid initiating immediately because of risk of hemorrhagic evolution of this CVA ambulating with PT well - dc home wiht HH PT today to continue Dyslipidemia --as above started statin, appetite improving, on [facility], avon soft diet - enc protein shakes at home UTI --stopped at discharge --rocephin IV completed course -neg cx growth Chronic issues known prior to admission, present on admission dysphagia/schazski/question of esophageal diverticulum - f/u w/ ENT hypothyroidism HTN recurrent UTI --resume home meds Assessment and plan were discussed with patientand family. Exam Vital Signs (Last) Date Time Temp Pulse Resp B/P Pulse Ox O2 Delivery O2 Flow Rate FiO2 05/07/16 09:44 80 05/07/16 08:21 37.4 16 145/70 95 Room Air Exam Constitutional: Elderly woman sitting comfortably in chair Head: Normocephalic atraumatic Eyes: PERRLA DC EOMI Chest: Clear to auscultation Cor: Regular rate and rhythm S1-S2 Abdomen: Soft nontender bowel sounds present Extremities: No pedal edema Neuro: Patient is alert difficult to assess orientation due to expressive aphasia. cn2-12 GI Motor strength is intact bilaterally- ambulating well > 300ft w FWW Test 05/03/16 12:11 05/03/16 12:45 05/03/16 20:23 05/04/16 02:25 Prothrombin Time 10.1sec (8.1-12.5) Prothromb Time International Ratio 0.95ratio Hemoglobin A1c 5.4% (4.8-5.6) Triglycerides Level 161mg/dL (0-149) Cholesterol Level 238mg/dL (100-199) LDL Cholesterol, Calculated 150.800mg/dL (0-99) VLDL Cholesterol 32.200mg/dL HDL Cholesterol 55mg/dL (>39) Cholesterol/HDL Ratio 4.33 (0.0-4.4) Urine Color Yellow (YELLOW) Urine Appearance Hazy (CLEAR,HAZY) Urine pH 6.5 (5.0-8.0) Urine Specific [place] 1.010 (1.003-1.035) Urine Protein Negativemg/dL (NEG,TRACE) Urine Glucose (UA) Negativemg/dL (NEGATIVE) Urine Ketones Negativemg/dL (NEGATIVE) Urine Occult Blood Negative (NEGATIVE) Urine Nitrite Negative (NEGATIVE) Urine Bilirubin Negative (NEGATIVE) Urine Urobilinogen Normalmg/dL (NORMAL) Urine Leukocyte Esterase Small (NEGATIVE) Urine RBC 0-2/hpf (0-2) Urine WBC 0-5/hpf (0-5) Urine Epithelial Cells Occasional/hpf (NONE-MOD) Urine Crystals None seen (NONE SEEN) Urine Bacteria Few/hpf (NONE-FEW) Urine Hyaline Casts None/lpf (NONE) Urine Granular Casts None seen (NONE SEEN) Urine Waxy Casts None seen (NONE SEEN) Urine Red Blood Cell Casts None seen (NONE SEEN) Urine White Blood Cell Casts None seen (NONE SEEN) Urine Mucus None seen (None Seen) Urine Trichomonas None seen (NONE SEEN) Urine Yeast None (NONE SEEN) Urinalysis Comment None Urine Culture Reflexed Indicated Hold Rice Top Tube Received (Received) Troponin T 0.010ug/L (0.0-0.011) Test 05/07/16 05:19 White Blood Count 8.0th/mm3 (3.8-10.1) Red Blood Count 4.35mil/mm3 (3.90-5.20) Hemoglobin 12.7g/dL (12.0-15.6) Hematocrit 39.1% (35.0-46.0) Mean Corpuscular Volume 89.9fL (81-100) Mean Corpuscular Hemoglobin 29.2pg (27.0-35.0) Mean Corpuscular Hemoglobin Concent 32.5% (32.0-37.0) Red Cell Distribution Width 14.6% (12.3-15.4) Platelet Count 242bil/L (150-400) Neutrophils (%) (Auto) 68.6% (40-74) Lymphocytes (%) (Auto) 18.0% (14-46) Monocytes (%) (Auto) 8.0% (4-12) Eosinophils (%) (Auto) 4.5% (0-5) Basophils (%) (Auto) 0.5% (0-3) Sodium Level 138mEq/L (134-144) Potassium Level 4.4mEq/L (3.5-5.2) Chloride Level 101mEq/L (97-108) Carbon Dioxide Level 25mmol/L (18-29) Blood Urea Nitrogen 14mg/dL (8-27) Creatinine 0.83mg/dL (0.57-1.00) Estimat Glomerular Filtration Rate 93mL/min (>59) Glucose Level 91mg/dL (60-99) Calcium Level 9.4mg/dL (8.5-10.1) Total Bilirubin 0.8mg/dL (0.0-1.2) Aspartate Amino Transf (AST/SGOT) 18U/L (0-50) Alanine Aminotransferase (ALT/SGPT) 11U/L (0-32) Alkaline Phosphatase 73U/L (25-165) Total Protein 6.6g/dL (6.4-8.4) Albumin 3.8g/dL (3.4-5.0) Discharge Medications Discharge Medications Aspirin (Aspirin) 81 Mg Tablet 162 MG PO BID (Reported) Atorvastatin Calcium (Atorvastatin Calcium) 40 Mg Tablet 40 MG PO HS Prescribed by: MAYRA DELA CRUZ DO Ferrous Sulfate (Iron) 325 Mg Tablet 325 MG PO ONCE (Reported) Metoprolol Tartrate (Metoprolol Tartrate) 25 Mg Tablet 25 MG PO BID Prescribed by: AUDRA MORRISON MD Triamterene/HCTZ 75-50 mg (Triamterene/HCTZ 75-50 mg) 1 Each Tablet 0.5 TABLET PO DAILY (Reported) Vit C/Gino AC/Lut/Copper/Znox (Preservision Lutein Softgel) 1 Each Capsule 1 EACH PO ONCE (Reported) Miscellaneous Medications Levothyroxine Sodium (Levo-T) 100 Mcg Tablet 100 MCG PO (Reported) Followup Plan Follow-up plan as above Discharge Diet: Heart Healthy Discharge Activity: Home Health Phyical Therapy, Other (visiting nursing and occupational and physical therapy - HH) Patient Instructions You were admitted for a stroke and will be discharged wi home health physical therapy, occupational therapy, and nursing. Please take all your medications as instructed. You were treated for a UTI as well. Please follow up with your PCP in 1 wk by calling to make an appt please continue with a mechanical (soft) thickness diet w/ thin liquids. A good plan would be to have your make protein smoothies Specific caloric needs information: (not needed to follow specifically but just FYI) 0570-5587 kcals (25-30 kcals/kg BW), 70-105 g protein (1.0-1.5 g/kg BW), 8507-8712 mL fluids (1 mL/kcal) Follow-up with PCP in: 1 week Time spent 40 spent with evaluation and mgmt copies to: Catalina Shanks David DO May 07, 2016 12:36
[2016-05-07 12:44] VITALS: BP 145/87; PULSE 74; RESP 16; O2SAT 97
[2016-05-07] MEDS: D5 0.45% NaCl + KCl 20 mEq/L 1,000 ML IV SCH (14:20)
--- NOTE | 2016-05-07 14:30 | NUR ---
Activity/Stroke Education Patient up to BR with FWW and 1p SBA. Steady gait, needs redirection and constant cues. Family at bedside. Stroke education reviewed with new family in room that will be taking patient home upon DC. Family verbalizes understanding of all.
--- NOTE | 2016-05-07 17:02 | NUR ---
Discharge DC home with family. ELLY plan for HH follow up for HH/OT/PT starting monday. All DC education and instructions given to patients family/caregivers. They verbalize understanding of all. No IV access at this time. Stroke education repeated to family at this time, stroke pamphlets given to all family and caregiver. Family verbalizes understanding of stroke knowledge. Prescription for statin given at time of DC.
== END 2016-05-07 16:30 | disposition home health service (06) | DRG 65 ==
LOC: EDBD 12:02 → SED 12:02 → OSC 17:24
PROVIDERS: ADMIT Urology; ATTEND Urology
DX: I63.412 Cerebral infarction due to embolism of left middle cerebral artery (principal); N39.0 Urinary tract infection, site not specified; I10 Essential (primary) hypertension; E03.9 Hypothyroidism, unspecified; I48.91 Unspecified atrial fibrillation; E78.5 Hyperlipidemia, unspecified; R47.01 Aphasia

== ENCOUNTER 2016-05-17 14:00 | Observation (INO) | payer MEDICARE ==
[~2016-05-17] VITALS: Ht 154.9 cm; Wt 63.5 kg
[~2016-05-17 14:00] MED LIST changes: +ASPI-973 PO; +ATOR40TA69 PO; +FERR325T39 PO; +VIT1CAPS27 PO
[2016-05-17 14:05] VITALS: BP 141/67; PULSE 74; RESP 17; O2SAT 98
--- NOTE | 2016-05-17 14:07 | ED.REPORT ---
HPI-General Illness Date of Service May 17, 2016 ED Provider: Isak Pritchard DO Nursing Notes Stated Complaint: GROUND LEVEL FALL Chief Complaint: Extremity Trauma Nursing Notes Reviewed: Yes Allergies: Coded Allergies: epinephrine (Verified Allergy, Intermediate, 05/03/16) omeprazole (Verified Allergy, Intermediate, 05/03/16) lisinopril (Verified Allergy, Mild, 05/03/16) procaine (Verified Allergy, Unknown, 05/03/16) Uncoded Allergies: FERROUS DEXTROSE INJECTIONS (Allergy, Severe, UNK, 05/03/16) Scheduled Aspirin (Aspirin) 81 Mg Tablet 162 MG PO BID Atorvastatin Calcium (Atorvastatin Calcium) 40 Mg Tablet 40 MG PO HS Ferrous Sulfate (Iron) 325 Mg Tablet 325 MG PO ONCE Metoprolol Tartrate (Metoprolol Tartrate) 25 Mg Tablet 25 MG PO BID Triamterene/HCTZ 75-50 mg (Triamterene/HCTZ 75-50 mg) 1 Each Tablet 0.5 TABLET PO DAILY Vit C/Gino AC/Lut/Copper/Znox (Preservision Lutein Softgel) 1 Each Capsule 1 EACH PO ONCE Miscellaneous Medications Levothyroxine Sodium (Levo-T) 100 Mcg Tablet 100 MCG PO General Time Seen by MD: 14:06 Hx Obtained From: Patient, EMS Arrived By: Ambulance Past Medical History Past Medical History Schatzki's ring Gastric Polyps Reports: Hypertension Reports: Thyroid disease Past Surgical History None reported Family History Noncontributory Smoking History Unknown if Ever Smoker Social History Other Social History: Good social support, Local resident Ambulatory Status Independent Review of Systems Complete sys rev & neg: except as marked. Physical Exam Vital Signs Vital Signs Date Time Temp Pulse Resp B/P Pulse Ox O2 Delivery O2 Flow Rate FiO2 05/17/16 14:05 74 17 141/67 98 Room Air Initial VS: Reviewed Re-Eval/Medical Decision Source of Hx: Old records, EMS Counseled Regarding: Diagnosis, Lab results Discharge & Departure Discharge Condition All VS Reviewed: Yes Condition: Stable Referrals: Catalina Shanks (PCP) Scribe Attestation Portions of this note were transcribed by Casandra Stanley. I, Dr. Pritchard personally performed the history, physical exam and medical decision-making; I reviewed and confirmed the accuracy of the information in the transcribed note. Signed by: Shan Sexton, 05/17/2016 and [Time]. copies to: Catalina Shanks Timothy S DO May 17, 2016 14:07 Casandra Stanley May 17, 2016 14:09
--- NOTE | 2016-05-17 15:06 | ED.REPORT ---
HPI-General Illness Date of Service May 17, 2016 ED Provider: Anirudh Durand MD This is an 89 year old female with a history of CVA, HTN, and dementia brought to the emergency department from home via EMS complaining of difficulty walking that began 6 hours ago upon awakening. Family members report that pt attempted to get out of bed this morning but was unable to ambulate which is abnormal, pt was able to walk yesterday using a walker. She reported diffuse pain to them today but is also aphasic since recent CVA on 05/03/2016. In the ED, pt responds to interview stating it "hurts all over," but is unable to specify where the pain is located when questioned. Family members deny fever, chills, nausea, vomiting, change in mental status, bowel, or bladder changes. They are unaware of any recent falls or trauma. Pt admitted to the hospital from 05/03-05/07/2016 for stroke and was discharged with physical therapy and rehab. Nursing Notes Stated Complaint: GROUND LEVEL FALL Chief Complaint: Extremity Trauma Nursing Notes Reviewed: Yes Allergies: Coded Allergies: epinephrine (Verified Allergy, Intermediate, 05/03/16) omeprazole (Verified Allergy, Intermediate, 05/03/16) lisinopril (Verified Allergy, Mild, 05/03/16) procaine (Verified Allergy, Unknown, 05/03/16) Uncoded Allergies: FERROUS DEXTROSE INJECTIONS (Allergy, Severe, UNK, 05/03/16) Scheduled Aspirin (Aspirin) 81 Mg Tablet 162 MG PO BID Atorvastatin Calcium (Atorvastatin Calcium) 40 Mg Tablet 40 MG PO HS Ferrous Sulfate (Iron) 325 Mg Tablet 325 MG PO ONCE Metoprolol Tartrate (Metoprolol Tartrate) 25 Mg Tablet 25 MG PO BID Triamterene/HCTZ 75-50 mg (Triamterene/HCTZ 75-50 mg) 1 Each Tablet 0.5 TABLET PO DAILY Vit C/Gino AC/Lut/Copper/Znox (Preservision Lutein Softgel) 1 Each Capsule 1 EACH PO ONCE Miscellaneous Medications Levothyroxine Sodium (Levo-T) 100 Mcg Tablet 100 MCG PO General Time Seen by MD: 14:54 Chief Complaint Other Hx Obtained From: Patient Arrived By: Ambulance Sudden in Onset?: Yes Onset Occurred: 5 - 8 hours ago Symptom Duration: Since onset Severity: Current: Mild Pertinent Negative: Pt denies other symptoms Recent Healthcare: No recent doctor visit, No recent hospitalization Similar Sx Previous: No Past Medical History Past Medical History Schatzki's ring Gastric Polyps Dementia Reports: Hypertension, Stroke Reports: Thyroid disease Past Surgical History None reported Family History Noncontributory Smoking History Unknown if Ever Smoker Social History Other Social History: Good social support, Local resident Ambulatory Status Independent Review of Systems Full Review of Systems Constitutional: Denies: Chills, Fever Cardiovascular: Denies: Chest pain GI: Denies: Nausea, Vomiting Musculoskeletal: Reports: Extremity pain, Denies: Neck pain Neurologic: Reports: Problem walking, Denies: Change LOC, Headache Complete sys rev & neg: except as marked. Physical Exam Vital Signs Vital Signs Date Time Temp Pulse Resp B/P Pulse Ox O2 Delivery O2 Flow Rate FiO2 05/17/16 18:40 64 14 125/58 100 Room Air 05/17/16 16:58 65 12 130/80 90 Room Air 05/17/16 15:26 37 79 13 115/53 05/17/16 14:05 74 17 141/67 98 Room Air Initial VS: Reviewed Skin: Warm, Dry, No cyanosis General/Constitutional: Awake Head / Eyes: Normocephalic, PERRL, EOMI ENT: Airway patent, Mucous membranes moist, Pharynx NL Neck: Supple, No meningismus, Full range of motion, No swelling, Non-tender, No masses Respiratory / Chest: Breath sounds NL, No respiratory distress, No rales, No rhonchi, No wheezing Cardiovascular: Heart rate NL, Regular rhythm, Heart sounds NL, Cap refill not delayed, Peripheral circulation NL Abdomen: Non-tender, No guarding, No rebound Lower Extremity / Pelvis / MS: Vascular intact Pain with palpation to R knee. Pain with external rotation of L lower extremity. Interpretation & Diagnostics BRAIN CT IMPRESSION: No acute intracranial abnormality. Dictated by: Aditya Aguirre M.D. on 05/17/2016 at 16:27 Approved by: Aditya Aguirre M.D. on 05/17/2016 at 16:29 CHEST X-RAY IMPRESSION: No acute cardiopulmonary abnormality. Dictated by: Chandler Conway M.D. on 05/17/2016 at 16:53 Approved by: Chandler Conway M.D. on 05/17/2016 at 16:54 HIP PELVIS X-RAY IMPRESSION: 1. Status post total right hip arthroplasty without evidence of fracture loosening or dislocation. 2. Questionable nondisplaced fracture of the right ischial pubic junction. If this correlates clinically, additional views may be helpful. Dictated by: Chandler Conway M.D. on 05/17/2016 at 16:50 Approved by: Chandler Conway M.D. on 05/17/2016 at 16:53 R KNEE X-RAY IMPRESSION: 1. Moderately large joint effusion. 2. Tricompartmental osteoarthritis Dictated by: Chandler Conway M.D. on 05/17/2016 at 16:58 Approved by: Chandler Conway M.D. on 05/17/2016 at 16:59 Lab Results Interpretation Result Diagram: 05/17/16 1558 05/17/16 1558 Test 05/17/16 15:58 05/17/16 16:15 White Blood Count 12.7th/mm3 (3.8-10.1) Red Blood Count 5.07mil/mm3 (3.90-5.20) Hemoglobin 14.8g/dL (12.0-15.6) Hematocrit 44.4% (35.0-46.0) Mean Corpuscular Volume 87.6fL (81-100) Mean Corpuscular Hemoglobin 29.2pg (27.0-35.0) Mean Corpuscular Hemoglobin Concent 33.3% (32.0-37.0) Red Cell Distribution Width 14.5% (12.3-15.4) Platelet Count 361bil/L (150-400) Neutrophils (%) (Auto) 79.9% (40-74) Lymphocytes (%) (Auto) 11.9% (14-46) Monocytes (%) (Auto) 7.3% (4-12) Eosinophils (%) (Auto) 0% (0-5) Basophils (%) (Auto) 0.2% (0-3) Erythrocyte Sedimentation Rate 24mm/hr (0-40) Sodium Level 138mEq/L (134-144) Potassium Level 4.1mEq/L (3.5-5.2) Chloride Level 98mEq/L (97-108) Carbon Dioxide Level 23mmol/L (18-29) Blood Urea Nitrogen 37mg/dL (8-27) Creatinine 1.15mg/dL (0.57-1.00) Estimat Glomerular Filtration Rate 64mL/min (>59) Glucose Level 128mg/dL (60-99) Calcium Level 9.9mg/dL (8.5-10.1) Magnesium Level 1.8mg/dL (1.6-2.6) Total Bilirubin 0.8mg/dL (0.0-1.2) Aspartate Amino Transf (AST/SGOT) 21U/L (0-50) Alanine Aminotransferase (ALT/SGPT) 15U/L (0-32) Alkaline Phosphatase 90U/L (25-165) Troponin T < 0.010ug/L (0.0-0.011) Total Protein 7.6g/dL (6.4-8.4) Albumin 4.1g/dL (3.4-5.0) Hold Rice Top Tube Received (Received) Urine Color Yellow (YELLOW) Urine Appearance Clear (CLEAR,HAZY) Urine pH 6.5 (5.0-8.0) Urine Specific [place] 1.020 (1.003-1.035) Urine Protein Negativemg/dL (NEG,TRACE) Urine Glucose (UA) Negativemg/dL (NEGATIVE) Urine Ketones Negativemg/dL (NEGATIVE) Urine Occult Blood Negative (NEGATIVE) Urine Nitrite Negative (NEGATIVE) Urine Bilirubin Negative (NEGATIVE) Urine Urobilinogen Normalmg/dL (NORMAL) Urine Leukocyte Esterase Trace (NEGATIVE) Urine RBC 0-2/hpf (0-2) Urine WBC 0-5/hpf (0-5) Urine Epithelial Cells None/hpf (NONE-MOD) Urine Crystals None seen (NONE SEEN) Urine Bacteria Few/hpf (NONE-FEW) Urine Hyaline Casts None/lpf (NONE) Urine Granular Casts None seen (NONE SEEN) Urine Waxy Casts None seen (NONE SEEN) Urine Red Blood Cell Casts None seen (NONE SEEN) Urine White Blood Cell Casts None seen (NONE SEEN) Urine Mucus None seen (None Seen) Urine Trichomonas None seen (NONE SEEN) Urine Yeast None (NONE SEEN) Urinalysis Comment None Urine Culture Reflexed Indicated ECG Interpretation ECG Interpretation: NSR at a rate of 77 non-specific lateral t-wave changes, no acute changes. when compared with ECG on 05/03/2016, atrial fibrillation has resolved. Time: 15:50 Interpreted by: ED physician Re-Eval/Medical Decision Med Decision/Clinical Course 89-year-old female with no known history of a fall however she has right knee pain and effusion as well as a probable pubic ramus fracture. She is a very difficult historian owing to aphasia and dementia, family did not know of any fall. He clearly however has had an acute change in her ability to ambulate according to family. At present the patient is unable to even sit up by herself. Given a normal sedimentation rate and no fever and minimal leukocytosis I do not believe she has a septic knee, clinically also septic knee is not present. Time of Eval: 17:12 Re-Evaluation/Progress Note: Rechecked, discussed lab and imaging results, and need for admission. Family members present in the room understand and agree with plan, all questions addressed. Consultation : Referral / Consult Name: Cesar Reilly MD Consulted With: Hospitalist Call Returned at: 17:38 Financial Services Rep: Accepts admit Counseled Regarding: Diagnosis, Lab results, Need for follow-up, Need for admission Discharge & Departure Primary Impression: Closed fracture of ramus of right pubis Encounter type: initial encounter Qualified Code: S32.501A - Unspecified fracture of right pubis, initial encounter for closed fracture Additional Impression: Right knee sprain Encounter type: initial encounter Involved ligament of knee: unspecified ligament Qualified Code: S83.91XA - Sprain of unspecified site of right knee, initial encounter Disposition: ADMITTED TO HOSPITAL Discharge Condition All VS Reviewed: Yes Condition: Stable Referrals: Catalina Shanks (PCP) Scribe Attestation Portions of this note were transcribed by Karla Walton. I, Dr. Durand personally performed the history, physical exam and medical decision-making; I reviewed and confirmed the accuracy of the information in the transcribed note. Signed by Shan Bell, 05/17/2016 at 18:00. Anirudh Durand MD May 17, 2016 15:06 KARLA WALTON May 17, 2016 15:19
[2016-05-17] MEDS ORDERED: Ondansetron 2 mg/mL 2 mL Inj IV PRN (15:25)
[2016-05-17 15:26] VITALS: BP 115/53; PULSE 79; RESP 13
[2016-05-17] MEDS: HYDROmorphone 0.5 mg/0.5 mL iSecure Syringe IVPUSH PRN (15:59)
[2016-05-17 16:12] LABS: BASOPHILS % (AUTO) 0.2 % (0-3); EOSINOPHILS % (AUTO) 0 % (0-5); MONOCYTES % (AUTO) 7.3 % (4-12); Mean Corpuscular Hemoglobin 29.2 pg (27.0-35.0); Mean Corpuscular Volume 87.6 fL (81-100); NEUTROPHILS % (AUTO) 79.9 % (40-74); Platelet Count 361 bil/L (150-400)
--- NOTE | 2016-05-17 16:31 | DRSVH ---
PROCEDURE: CT BRAIN WITHOUT CONTRAST ([id number]) INDICATIONS: weakness/ recent stroke TECHNIQUE: Noncontrast 4.5 mm thick angled axial sections acquired from the foramen magnum to the vertex, with c oronal reformats. COMPARISON: [facility], MR, MR STROKE PROTOCOL, 05/04/2016, 21:46. [facility] l, CT, CT BRAIN WO CON, 05/03/2016, 12:20. FINDINGS: Image quality: Excellent. CSF spaces: Basal cisterns are patent. No extra-axial fluid collections. The ventricles are symmet paul in size and shape. Brain: No intracranial bleeds or masses. There is cerebral volume loss for age, with resultant vent ricular and sulcal prominence. There are periventricular and deep white matter chronic small vessel ischemic changes. There is intracranial internal carotid artery atherosclerosis. Skull and face: Calvarium and visualized facial bones appear intact, without suspicious lesions. Sinuses: Mild left maxillary sinus mucosal thickening. Visualized sinuses and mastoids are otherwise clear. IMPRESSION: No acute intracranial abnormality. Dictated by: Aditya Aguirre M.D. on 05/17/2016 at 16:27 Approved by: Aditya Aguirre M.D. on 05/17/2016 at 16:29
[2016-05-17 16:37] LABS: APPEARANCE,URINE CLEAR (CLEAR,HAZY); COLOR,URINE YELLOW (YELLOW)
[2016-05-17 16:37] LABS: ERYTHROCYTE SEDIMENTATION RATE 24 mm/hr (0-40)
[2016-05-17 16:38] LABS: OCCULT BLOOD,URINE NEGATIVE (NEGATIVE); PH,URINE 6.5 (5.0-8.0); UROBILINOGEN,URINE NORMAL (NORMAL)
[2016-05-17 16:38] LABS: TROPONIN T < 0.010 ug/L (0.0-0.011)
[2016-05-17 16:48] LABS: Magnesium 1.8 mg/dL (1.6-2.6)
[2016-05-17] MEDS ORDERED: 0.9% Sodium Chloride 1,000 ML IV ONE (16:55)
--- NOTE | 2016-05-17 16:55 | DRSVH ---
PROCEDURE: X-RAY PELVIS W/LAT HIP (RT) ([id number]) INDICATIONS: Right lower extremity and hip pain TECHNIQUE: AP pelvis with lateral view(s) of the right hip(s). COMPARISON: 01/13/2013 FINDINGS: Bones: A right hip prosthesis again noted. Components appear to be in normal alignment. No fractures or dislocations. Pelvic ring shows a possible nondisplaced fracture through the inferior ramus at t he pubic junction. No suspicious bony lesions. Soft tissues: The visualized bowel gas pattern is normal. No suspicious soft tissue calcifications. IMPRESSION: 1. Status post total right hip arthroplasty without evidence of fracture loosening or dislocation. 2. Questionable nondisplaced fracture of the right ischial pubic junction. If this correlates clinica lly, additional views may be helpful. Dictated by: Chandler Conway M.D. on 05/17/2016 at 16:50 Approved by: Chandler Conway M.D. on 05/17/2016 at 16:53
--- NOTE | 2016-05-17 16:56 | DRSVH ---
PROCEDURE: X-RAY CHEST ONE VIEW, PORTABLE ([id number]) INDICATIONS: RIGHT LOWER EXTREMITY and hip pain TECHNIQUE: One view of the chest was acquired. COMPARISON: 04/25/2016 FINDINGS: Surgical changes and devices: None. Lungs and pleura: No pleural effusions or pneumothorax. There is elevation of the right hemidiaphrag m. Lungs are clear. Mediastinum: Mediastinal contours appear normal. Heart size is normal. Bones and chest wall: No suspicious bony lesions. Overlying soft tissues appear unremarkable. IMPRESSION: No acute cardiopulmonary abnormality. Dictated by: Chandler Conway M.D. on 05/17/2016 at 16:53 Approved by: Chandler Conway M.D. on 05/17/2016 at 16:54
[2016-05-17 16:58] VITALS: BP 130/80; PULSE 65; RESP 12; O2SAT 90
--- NOTE | 2016-05-17 17:01 | DRSVH ---
PROCEDURE: X-RAY RIGHT KNEE, ONE OR TWO VIEWS ([id number]) INDICATIONS: Right lower extremity and hip pain TECHNIQUE: 3 views of the knee were acquired. COMPARISON: None. FINDINGS: Bones: No fractures or dislocations. No suspicious bony lesions. Extensive tricompartmental osteoar thritis with prominent marginal spurs. Soft tissues: Moderately large joint effusion. No suspicious soft tissue calcifications. IMPRESSION: 1. Moderately large joint effusion. 2. Tricompartmental osteoarthritis Dictated by: Chandler Conway M.D. on 05/17/2016 at 16:58 Approved by: Chandler Conway M.D. on 05/17/2016 at 16:59
[2016-05-17 18:40] VITALS: BP 125/58; PULSE 64; RESP 14; O2SAT 100
[2016-05-17 20:19] VITALS: BP 127/63; PULSE 70; RESP 15; O2SAT 99
[2016-05-17] MEDS ORDERED: Alum-Mag Hydrox-Simeth 30 mL Suspension PO PRN (20:35)
[2016-05-17] MEDS ORDERED: Ondansetron 2 mg/mL 2 mL Inj IVPUSH PRN (20:35)
[2016-05-17] MEDS ORDERED: Polyethylene Glycol (PEG) 17 Gm Powder PO PRN (21:00)
[2016-05-17 21:03] VITALS: BP 114/72; PULSE 75; RESP 18; O2SAT 95
--- NOTE | 2016-05-17 21:44 | PCM.HPMED ---
Subjective Date of Service May 17, 2016 Primary Provider: Admitting Physician: Cesar Reilly MD Primary Care Physician: Catalina Shanks Attending Physician: Cesar Reilly MD Chief Complaint: pain while standing/ambulating History of Present Illness: This is an 89 year old female with a history of CVA, HTN, and dementia brought to the emergency department from home via EMS complaining of difficulty walking that began 6 hours ago upon awakening. Family members report that pt attempted to get out of bed this morning but was unable to ambulate which is abnormal, pt was able to walk yesterday using a walker. She reported diffuse pain to them today. In the ED, pt responds to interview stating it "hurts all over," but is unable to specify where the pain is located when questioned. Family members deny fever, chills, nausea, vomiting, change in mental status, bowel, or bladder changes.Patients family admits that yesterday the patient was in the shower and slowly slumped to the floor after getting out the shower. The patient required assistance from the as well to get her into bed. Patient additionally this morning was able to get out of bed however she again slowly slumped to the ground. Pt after that was reluctant to stand again. Pt admitted to the hospital from 05/03-05/07/2016 for stroke and was discharged with physical therapy and rehab. Pt is currently stable Review of Systems: unable to asses given mental status Allergies Coded Allergies: epinephrine (Verified Allergy, Intermediate, 05/03/16) omeprazole (Verified Allergy, Intermediate, 05/03/16) lisinopril (Verified Allergy, Mild, 05/03/16) procaine (Verified Allergy, Unknown, 05/03/16) Uncoded Allergies: FERROUS DEXTROSE INJECTIONS (Allergy, Severe, UNK, 05/03/16) Home Medications Aspirin (Aspirin) 81 Mg Tablet 162 MG PO BID Atorvastatin Calcium (Atorvastatin Calcium) 40 Mg Tablet 40 MG PO HS Ferrous Sulfate (Iron) 325 Mg Tablet 325 MG PO ONCE Metoprolol Tartrate (Metoprolol Tartrate) 25 Mg Tablet 25 MG PO BID Triamterene/HCTZ 75-50 mg (Triamterene/HCTZ 75-50 mg) 1 Each Tablet 0.5 TABLET PO DAILY Vit C/Gino AC/Lut/Copper/Znox (Preservision Lutein Softgel) 1 Each Capsule 1 EACH PO ONCE Levothyroxine Sodium (Levo-T) 100 Mcg Tablet 100 MCG PO PMH Schatzki's ring Gastric Polyps Dementia Hypertension Stroke Reports: Thyroid disease Surgical History none Family History non-contributory Social History Hx Alcohol Use: No Hx Substance Use: No Smoking Status: Unknown if Ever Smoker Exam Vital Signs Vital Sign - Last Date Time Temp Pulse Resp B/P Pulse Ox O2 Delivery O2 Flow Rate FiO2 05/17/16 20:19 70 15 127/63 99 Room Air 05/17/16 15:26 37 Exam General/Constitutional: Awake Head / Eyes: Normocephalic, PERRL, EOMI ENT: Airway patent, Mucous membranes moist, Pharynx NL Respiratory / Chest: Breath sounds NL, No respiratory distress, No rales, No rhonchi, No wheezing Cardiovascular: Heart rate NL, Regular rhythm, Heart sounds NL, Cap refill not delayed, Peripheral circulation NL Abdomen: Non-tender, No guarding, No rebound Lower Extremity / Pelvis / MS: Vascular intact, Pain with palpation to R knee. Pain with external rotation of L lower extremity. Lab and Diagnostics Result Diagram: 05/17/16 1558 05/17/16 1558 X-Rays, CTs and MRIs BRAIN CT IMPRESSION: No acute intracranial abnormality. HIP PELVIS X-RAY IMPRESSION: 1. Status post total right hip arthroplasty without evidence of fracture loosening or dislocation. 2. Questionable nondisplaced fracture of the right ischial pubic junction. If this correlates clinically, additional views may be helpful. Dictated by: Chandler Conway M.D. on 05/17/2016 at 16:50 Approved by: Chandler Conway M.D. on 05/17/2016 at 16:53 R KNEE X-RAY IMPRESSION: 1. Moderately large joint effusion. 2. 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 Right hip/leg pain - Patient apparently had a fall in the shower yesterday - Patient has been having difficulty standing since then - Hip xray reveals nondisplaced fracture of the right ischial pubic junction - will order pt - will make arrangements for assisted living facility for placement for bone healing - adequate pain control in the interim Previous CVA - head ct is negative and there is no new neurological deficit seen - will c/w statin and aspirin for preventative measures Hypertension - chronic - pt has been normotensive - will c/w metoprolol and triamterene/hctz at home dose Hypothyroidism - established - will c/w levothyroxine 100 mcg daily pt is dnr/dni DVT ppx via scds Gi ppx not warranted Disp: Assisted living facility vs snf Cesar Reilly MD May 17, 2016 21:44
[2016-05-17] MEDS ORDERED: VIT1CAPS10 PO (21:48)
[2016-05-17] MEDS ORDERED: CLOP75TA3 PO (21:48)
[2016-05-18 00:59] VITALS: BP 136/81; PULSE 74; RESP 18; O2SAT 96
--- NOTE | 2016-05-18 01:49 | NUR ---
admit pt admitted from ED to room 1010 at 2100. she was alert, has baseline dementia and was not oriented. pt does respond to questions but nurse not able to understand much of what she says, has deficits from a recent CVA. she was moved to the hospital bed via sliding board. she yelled out when being rolled onto the board. but did not want any tylenol when asked. she is on 2L of 02 via MS. wearing a brief for incontinence. anali area is red and excoriated, calmoseptine was applied. admit completed by Felceia Gregg RN from medical records and family interview. pt does not use call light, unable to orient to room, staff is rounding frequently and anticipating needs. care continues.
[2016-05-18 05:46] VITALS: BP 121/67; PULSE 78; RESP 18; O2SAT 95
[2016-05-18 06:23] LABS: BASOPHILS % (AUTO) 0.2 % (0-3); EOSINOPHILS % (AUTO) 0.1 % (0-5); MONOCYTES % (AUTO) 10.8 % (4-12); Mean Corpuscular Hemoglobin 29.2 pg (27.0-35.0); Mean Corpuscular Volume 88.8 fL (81-100); NEUTROPHILS % (AUTO) 77.5 % (40-74); Platelet Count 331 bil/L (150-400)
[2016-05-18] MEDS: HYDROmorphone 0.5 mg/0.5 mL iSecure Syringe IVPUSH PRN (08:43)
--- NOTE | 2016-05-18 08:57 | PCM.PNMED ---
Subjective Date of Service May 18, 2016 Subjective Patient is currently resting in bed and eating breakfast. She is daughter at bedside. She did have a fall at home and has sustained a right pubic ramus fracture. I also discussed with daughter that she tells me that they were to have an appointment coming up soon to discuss initiation of Coumadin therapy post CVA with atrial fibrillation. Exam Vital Signs Vital Sign - Last Date Time Temp Pulse Resp B/P Pulse Ox O2 Delivery O2 Flow Rate FiO2 05/18/16 05:46 37.0 78 18 121/67 95 Room Air Intake and Output 05/17/16 05/17/16 05/18/16 Cumulative From/Thru 15:00 23:00 07:00 05/17/16 14:05 - 05/18/16 06:06 Intake Total 1000 ml 100 ml 1100 ml Balance 1000 ml 100 ml 1100 ml Intake Oral 100 ml 100 ml IV Total 1000 ml 1000 ml # Voids 2 2 # Bowel Movements 0 0 Exam Constitutional: Elderly woman in no acute distress post IV Dilaudid pain medication Chest: Clear to auscultation Cor: Irregular regular rate and rhythm S1-S2 Abdomen: Soft, nontender, bowel sounds present Extremities: No pedal edema Neuro: She is alert and appears oriented 3 when asked questions. She does have an expressive aphasia. Does follow some commands. Lab and Diagnostics Laboratory Tests 72 Hours Test 05/17/16 15:58 05/17/16 16:15 05/18/16 06:00 White Blood Count 12.7th/mm3 (3.8-10.1) 12.3th/mm3 (3.8-10.1) Red Blood Count 5.07mil/mm3 (3.90-5.20) 4.72mil/mm3 (3.90-5.20) Hemoglobin 14.8g/dL (12.0-15.6) 13.8g/dL (12.0-15.6) Hematocrit 44.4% (35.0-46.0) 41.9% (35.0-46.0) Mean Corpuscular Volume 87.6fL (81-100) 88.8fL (81-100) Mean Corpuscular Hemoglobin 29.2pg (27.0-35.0) 29.2pg (27.0-35.0) Mean Corpuscular Hemoglobin Concent 33.3% (32.0-37.0) 32.9% (32.0-37.0) Red Cell Distribution Width 14.5% (12.3-15.4) 14.6% (12.3-15.4) Platelet Count 361bil/L (150-400) 331bil/L (150-400) Neutrophils (%) (Auto) 79.9% (40-74) 77.5% (40-74) Lymphocytes (%) (Auto) 11.9% (14-46) 10.4% (14-46) Monocytes (%) (Auto) 7.3% (4-12) 10.8% (4-12) Eosinophils (%) (Auto) 0% (0-5) 0.1% (0-5) Basophils (%) (Auto) 0.2% (0-3) 0.2% (0-3) Erythrocyte Sedimentation Rate 24mm/hr (0-40) Sodium Level 138mEq/L (134-144) 141mEq/L (134-144) Potassium Level 4.1mEq/L (3.5-5.2) 3.8mEq/L (3.5-5.2) Chloride Level 98mEq/L (97-108) 102mEq/L (97-108) Carbon Dioxide Level 23mmol/L (18-29) 23mmol/L (18-29) Blood Urea Nitrogen 37mg/dL (8-27) 32mg/dL (8-27) Creatinine 1.15mg/dL (0.57-1.00) 1.09mg/dL (0.57-1.00) Estimat Glomerular Filtration Rate 64mL/min (>59) 68mL/min (>59) Glucose Level 128mg/dL (60-99) 113mg/dL (60-99) Calcium Level 9.9mg/dL (8.5-10.1) 9.3mg/dL (8.5-10.1) Magnesium Level 1.8mg/dL (1.6-2.6) Total Bilirubin 0.8mg/dL (0.0-1.2) 0.9mg/dL (0.0-1.2) Aspartate Amino Transf (AST/SGOT) 21U/L (0-50) 17U/L (0-50) Alanine Aminotransferase (ALT/SGPT) 15U/L (0-32) 11U/L (0-32) Alkaline Phosphatase 90U/L (25-165) 80U/L (25-165) Troponin T < 0.010ug/L (0.0-0.011) Total Protein 7.6g/dL (6.4-8.4) 7.2g/dL (6.4-8.4) Albumin 4.1g/dL (3.4-5.0) 3.7g/dL (3.4-5.0) Hold Rice Top Tube Received (Received) Urine Color Yellow (YELLOW) Urine Appearance Clear (CLEAR,HAZY) Urine pH 6.5 (5.0-8.0) Urine Specific [place] 1.020 (1.003-1.035) Urine Protein Negativemg/dL (NEG,TRACE) Urine Glucose (UA) Negativemg/dL (NEGATIVE) Urine Ketones Negativemg/dL (NEGATIVE) Urine Occult Blood Negative (NEGATIVE) Urine Nitrite Negative (NEGATIVE) Urine Bilirubin Negative (NEGATIVE) Urine Urobilinogen Normalmg/dL (NORMAL) Urine Leukocyte Esterase Trace (NEGATIVE) Urine RBC 0-2/hpf (0-2) Urine WBC 0-5/hpf (0-5) Urine Epithelial Cells None/hpf (NONE-MOD) Urine Crystals None seen (NONE SEEN) Urine Bacteria Few/hpf (NONE-FEW) Urine Hyaline Casts None/lpf (NONE) Urine Granular Casts None seen (NONE SEEN) Urine Waxy Casts None seen (NONE SEEN) Urine Red Blood Cell Casts None seen (NONE SEEN) Urine White Blood Cell Casts None seen (NONE SEEN) Urine Mucus None seen (None Seen) Urine Trichomonas None seen (NONE SEEN) Urine Yeast None (NONE SEEN) Urinalysis Comment None Urine Culture Reflexed Indicated Result Diagram: 05/18/16 0600 05/18/16 0600 X-Rays, CTs and MRIs BRAIN CT IMPRESSION: No acute intracranial abnormality. HIP PELVIS X-RAY IMPRESSION: 1. Status post total right hip arthroplasty without evidence of fracture loosening or dislocation. 2. Questionable nondisplaced fracture of the right ischial pubic junction. If this correlates clinically, additional views may be helpful. Dictated by: Chandler Conway M.D. on 05/17/2016 at 16:50 Approved by: Chandler Conway M.D. on 05/17/2016 at 16:53 R KNEE X-RAY IMPRESSION: 1. Moderately large joint effusion. 2. 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 Right hip/leg pain - Patient apparently had a fall in the shower yesterday - Patient has been having difficulty standing since then - Hip xray reveals nondisplaced fracture of the right ischial pubic junction - will order pt - will make arrangements for assisted living facility for placement for bone healing - adequate pain control in the interim Previous CVA - head ct is negative and there is no new neurological deficit seen - will c/w statin and aspirin for preventative measures -Per daughter patient is not on aspirin but is on Plavix so we will continue. -At this point discussed with daughter on Coumadin is contraindicated due to her falls and can be readdressed in the near future. Hypertension - chronic - pt has been normotensive - will c/w metoprolol and triamterene/hctz at home dose Hypothyroidism - established - will c/w levothyroxine 100 mcg daily pt is dnr/dni DVT ppx via scds Gi ppx not warranted Disp: Assisted living facility vs snf Pain Evaluation: Adequate Pain Control VTE Prophylaxis: Sub-Q Heparin (Unfractionated), SCDs Time spent 30 minutes Jessie Vicente MD May 18, 2016 08:57
--- NOTE | 2016-05-18 10:46 | NUR ---
Case Management: SAWYER given and explained to daughter at 09:30. Cheryl HUNTER RN
--- NOTE | 2016-05-18 10:48 | NUR ---
Gave access and faxed facesheet to [facility] per TECHNICIAN. Patient maybe ready today. [facility] [employer] auth will need to be obtained as well.
[2016-05-18 10:58] VITALS: BP 108/51; PULSE 90; RESP 16; O2SAT 95
[2016-05-18 11:17] VITALS: PULSE 93
--- NOTE | 2016-05-18 13:26 | NUR ---
Evaluation completed. Please go to "Notes" then click on "Assessments and Notes" (bottom left corner of screen). Then select appropriate discipline tab on top of screen.
--- NOTE | 2016-05-18 13:36 | NUR ---
Case Management. Basilia from is reviewing for SNF. Cheryl HUNTER RN
--- NOTE | 2016-05-18 13:49 | NUR ---
Case Management: Basilia from has authorized SNF. Cheryl HUNTER RN
--- NOTE | 2016-05-18 13:55 | NUR ---
[facility] can accept patient with [facility] to follow. They have bed available today.
--- NOTE | 2016-05-18 14:01 | PCM.DIMED ---
Discharge Instructions Date of Service May 18, 2016 Dates of Hospitalization May 17, 2016 at 19:50 Discharge Diagnosis Discharge Diagnosis GLF with right pubic ramus fracture Diet Heart Healthy Activity Other (as tolerated) Patient Instructions Additional Information To be discharged to [facility] nursing [facility]. Jessie Vicente MD May 18, 2016 14:01
[2016-05-18] MEDS ORDERED: LEVO-88 PO (14:06)
[2016-05-18] MEDS ORDERED: ATOR40TA69 PO (14:06)
[2016-05-18] MEDS ORDERED: CLOP75TA3 PO (14:06)
[2016-05-18] MEDS ORDERED: VIT1CAPS10 PO (14:06)
[2016-05-18] MEDS ORDERED: FERR325T39 PO (14:06)
[2016-05-18] MEDS ORDERED: METO25TA6 PO (14:06)
[2016-05-18] MEDS ORDERED: TRIA1TAB5 PO (14:06)
[2016-05-18 14:11] VITALS: BP 116/72; PULSE 82; O2SAT 94
--- NOTE | 2016-05-18 14:16 | PCM.DC.MED ---
Discharge Summary Date of Service May 18, 2016 Dates of Hospitalization Date of Hospital Admission May 17, 2016 at 19:50 Date of Discharge: May 18, 2016 Providers: Admitting Physician: Cesar Reilly MD Primary Care Physician: Catalina Shanks Attending Physician: Cesar Reilly MD Diagnosis at Time of Discharge Diagnosis at Time of Discharge GLF with right pubic ramus fracture Procedures XRay, CTs & MRIs BRAIN CT IMPRESSION: No acute intracranial abnormality. HIP PELVIS X-RAY IMPRESSION: 1. Status post total right hip arthroplasty without evidence of fracture loosening or dislocation. 2. Questionable nondisplaced fracture of the right ischial pubic junction. If this correlates clinically, additional views may be helpful. Dictated by: Chandler Conway M.D. on 05/17/2016 at 16:50 Approved by: Chandler Conway M.D. on 05/17/2016 at 16:53 R KNEE X-RAY IMPRESSION: 1. Moderately large joint effusion. 2. Tricompartmental osteoarthritis Brief History This is an 89 year old female with a history of CVA, HTN, and dementia brought to the emergency department from home via EMS complaining of difficulty walking that began 6 hours ago upon awakening. Family members report that pt attempted to get out of bed this morning but was unable to ambulate which is abnormal, pt was able to walk yesterday using a walker. She reported diffuse pain to them today. In the ED, pt responds to interview stating it "hurts all over," but is unable to specify where the pain is located when questioned. Family members deny fever, chills, nausea, vomiting, change in mental status, bowel, or bladder changes.Patients family admits that yesterday the patient was in the shower and slowly slumped to the floor after getting out the shower. The patient required assistance from the as well to get her into bed. Patient additionally this morning was able to get out of bed however she again slowly slumped to the ground. Pt after that was reluctant to stand again. Pt admitted to the hospital from 05/03-05/07/2016 for stroke and was discharged with physical therapy and rehab. 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 Right hip/leg pain - Patient apparently had a fall in the shower yesterday - Patient has been having difficulty standing since then - Hip xray reveals nondisplaced fracture of the right ischial pubic junction - will order pt - will make arrangements for assisted living facility for placement for bone healing - adequate pain control in the interim -Midafternoon patient was accepted at [facility] and discharge has been processed Previous CVA - head ct is negative and there is no new neurological deficit seen - will c/w statin and aspirin for preventative measures -Per daughter patient is not on aspirin but is on Plavix so we will continue. -At this point discussed with daughter on Coumadin is contraindicated due to her falls and can be readdressed in the near future. Hypertension - chronic - pt has been normotensive - will c/w metoprolol and triamterene/hctz at home dose Hypothyroidism - established - will c/w levothyroxine 100 mcg daily pt is dnr/dni DVT ppx via scds Gi ppx not warranted Disp: Assisted living facility vs snf Exam Vital Signs (Last) Date Time Temp Pulse Resp B/P Pulse Ox O2 Delivery O2 Flow Rate FiO2 05/18/16 14:11 36.4 82 116/72 94 Room Air 05/18/16 10:58 16 Exam See progress note dated today Test 05/17/16 15:58 05/17/16 16:15 05/18/16 06:00 Erythrocyte Sedimentation Rate 24mm/hr (0-40) Magnesium Level 1.8mg/dL (1.6-2.6) Troponin T < 0.010ug/L (0.0-0.011) Hold Rice Top Tube Received (Received) Urine Color Yellow (YELLOW) Urine Appearance Clear (CLEAR,HAZY) Urine pH 6.5 (5.0-8.0) Urine Specific [place] 1.020 (1.003-1.035) Urine Protein Negativemg/dL (NEG,TRACE) Urine Glucose (UA) Negativemg/dL (NEGATIVE) Urine Ketones Negativemg/dL (NEGATIVE) Urine Occult Blood Negative (NEGATIVE) Urine Nitrite Negative (NEGATIVE) Urine Bilirubin Negative (NEGATIVE) Urine Urobilinogen Normalmg/dL (NORMAL) Urine Leukocyte Esterase Trace (NEGATIVE) Urine RBC 0-2/hpf (0-2) Urine WBC 0-5/hpf (0-5) Urine Epithelial Cells None/hpf (NONE-MOD) Urine Crystals None seen (NONE SEEN) Urine Bacteria Few/hpf (NONE-FEW) Urine Hyaline Casts None/lpf (NONE) Urine Granular Casts None seen (NONE SEEN) Urine Waxy Casts None seen (NONE SEEN) Urine Red Blood Cell Casts None seen (NONE SEEN) Urine White Blood Cell Casts None seen (NONE SEEN) Urine Mucus None seen (None Seen) Urine Trichomonas None seen (NONE SEEN) Urine Yeast None (NONE SEEN) Urinalysis Comment None Urine Culture Reflexed Indicated White Blood Count 12.3th/mm3 (3.8-10.1) Red Blood Count 4.72mil/mm3 (3.90-5.20) Hemoglobin 13.8g/dL (12.0-15.6) Hematocrit 41.9% (35.0-46.0) Mean Corpuscular Volume 88.8fL (81-100) Mean Corpuscular Hemoglobin 29.2pg (27.0-35.0) Mean Corpuscular Hemoglobin Concent 32.9% (32.0-37.0) Red Cell Distribution Width 14.6% (12.3-15.4) Platelet Count 331bil/L (150-400) Neutrophils (%) (Auto) 77.5% (40-74) Lymphocytes (%) (Auto) 10.4% (14-46) Monocytes (%) (Auto) 10.8% (4-12) Eosinophils (%) (Auto) 0.1% (0-5) Basophils (%) (Auto) 0.2% (0-3) Sodium Level 141mEq/L (134-144) Potassium Level 3.8mEq/L (3.5-5.2) Chloride Level 102mEq/L (97-108) Carbon Dioxide Level 23mmol/L (18-29) Blood Urea Nitrogen 32mg/dL (8-27) Creatinine 1.09mg/dL (0.57-1.00) Estimat Glomerular Filtration Rate 68mL/min (>59) Glucose Level 113mg/dL (60-99) Calcium Level 9.3mg/dL (8.5-10.1) Total Bilirubin 0.9mg/dL (0.0-1.2) Aspartate Amino Transf (AST/SGOT) 17U/L (0-50) Alanine Aminotransferase (ALT/SGPT) 11U/L (0-32) Alkaline Phosphatase 80U/L (25-165) Total Protein 7.2g/dL (6.4-8.4) Albumin 3.7g/dL (3.4-5.0) Discharge Medications Discharge Medications Atorvastatin Calcium (Atorvastatin Calcium) 40 Mg Tablet 40 MG PO HS Prescribed by: JESSIE VICENTE MD Clopidogrel Bisulfate (Plavix) 75 Mg Tablet 75 MG PO DAILY Prescribed by: JESSIE VICENTE MD Ferrous Sulfate (Iron) 325 Mg Tablet 325 MG PO DAILY Prescribed by: JESSIE VICENTE MD Levothyroxine Sodium (Levo-T) 100 Mcg Tablet 100 MCG PO DAILY Prescribed by: JESSIE VICENTE MD Metoprolol Tartrate (Metoprolol Tartrate) 25 Mg Tablet 25 MG PO BID Prescribed by: JESSIE VICENTE MD Triamterene/HCTZ 75-50 mg (Triamterene/HCTZ 75-50 mg) 1 Each Tablet 0.5 TABLET PO DAILY Prescribed by: JESSIE VICENTE MD Vit A/Vit C/Vit E/Zinc/Copper (Preservision Areds Softgel) 1 Each Capsule 1 EACH PO DAILY Prescribed by: JESSIE VICENTE MD Followup Plan Disposition: [facility] facility Discharge Diet: Heart Healthy Discharge Activity: Other (as tolerated) Time spent 45 minutes Jessie Vicente MD May 18, 2016 14:16
--- NOTE | 2016-05-18 14:16 | NUR ---
Social Work Initial Assessment and Discharge: ELLY met with patient and family at bedside to discuss discharge plan. Patient is a 89 year old female admitted under observation status on 05/17/16 for pubic ramus rx, right knee sprain. Patient payer as [employer]. 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 Patient PCP as MD Case. Patient resides in [facility] with . Patient pharmacy of choice as [facility]. [facility] Rn, PT, ST, and OT. Patient has previous SNF history at [facility]. Patient has a walker and cane at home. Patient has AD at home. SW discussed discharge options of SNF placement. Patient states choice as [facility] SW requested that UR specialist send referral to [facility] and coordinate auth approval. Auth obtained and patient accepted to [facility]. Patient and family aware. SW to follow. PLAN: Accepted to [facility]. Auth obtained. Zully ESCUDERO Addendum: 05/18/16 at 1435 by MIRELLA OZUNA Amended: Links added. Addendum: 05/18/16 at 1451 by MIRELLA OZUNA Patient coordinated with care for transport at 4pm. No other needs identified. Patient and family aware. Zully ESCUDERO
--- NOTE | 2016-05-18 16:00 | NUR ---
pt transferred to [facility] per cabulance, 2 total assist with difficult transfer, pt can hardly bear wt due to pain.
== END 2016-05-18 16:15 ==
LOC: SED 14:00 → OSC 19:50
PROVIDERS: ADMIT Internal Medicine; ATTEND Internal Medicine
DX: S32.591A Other specified fracture of right pubis, initial encounter for closed fracture (principal); W17.89XA Other fall from one level to another, initial encounter; Y93.E1 Activity, personal bathing and showering; Y92.012 Bathroom of single-family (private) house as the place of occurrence of the external cause; M25.551 Pain in right hip; S83.91XA Sprain of unspecified site of right knee, initial encounter; Z86.73 Personal history of transient ischemic attack (TIA), and cerebral infarction without residual deficits; I10 Essential (primary) hypertension; E03.9 Hypothyroidism, unspecified; F03.90 Unspecified dementia, unspecified severity, without behavioral disturbance, psychotic disturbance, mood disturbance, and anxiety; K31.7 Polyp of stomach and duodenum; K22.2 Esophageal obstruction; Z79.02 Long term (current) use of antithrombotics/antiplatelets; Z66 Do not resuscitate
CPT/HCPCS: 36415; 70450; 71010; 73501; 73560; 80053; 81000; 83735; 84484; 85025; 85651; 87086; 87088; 93005; 96361; 96374; 96375; 97162; 99285; G0378; J1170; J2405; J7030

== ENCOUNTER 2016-06-05 14:15 | Inpatient (IN) | payer MEDICARE ==
[~2016-06-05] VITALS: Ht 154.9 cm; Wt 70.0 kg
[~2016-06-05 14:15] MED LIST changes: -ASPI-973 PO; +CLOP75TA3 PO; +VIT1CAPS10 PO; -VIT1CAPS27 PO
[2016-06-05 14:30] VITALS: BP 117/56; PULSE 89; RESP 16; O2SAT 97
--- NOTE | 2016-06-05 15:10 | ED.REPORT ---
HPI-Extremity Problem Lower Date of Service Jun 05, 2016 ED Provider: Danial Sandoval MD Pt is an 89 y.o. female with a hx of CVA, dementia, and HTN who presents to the ED via EMS accompanied by family from [facility] c/o left leg swelling and pain first noticed today. Per family pt is currently at [facility] for rehab after right-sided pubic rami fracture and CVA. The leg swelling was first noticed today and pt is having bilateral leg pain and tenderness. Family states that pt was making great progress and was walking well until 2 days ago. They also reports that pt has not been eating much at [facility] and that they have her on a thin liquid diet for a reason that is not clear to them. Pt is on Plavix currently. Pt is unable to provide hx due to expressive aphasia from prior CVA. Nursing Notes Stated Complaint: LEFT SWOLLEN LEG Chief Complaint: General Complaint Nursing Notes Reviewed: Yes (Optimitive, meds not reconciled) Allergies: Coded Allergies: epinephrine (Verified Allergy, Intermediate, 05/03/16) omeprazole (Verified Allergy, Intermediate, 05/03/16) lisinopril (Verified Allergy, Mild, 05/03/16) procaine (Verified Allergy, Unknown, 05/03/16) Uncoded Allergies: FERROUS DEXTROSE INJECTIONS (Allergy, Severe, UNK, 05/03/16) Scheduled Atorvastatin Calcium (Atorvastatin Calcium) 40 Mg Tablet 40 MG PO HS Clopidogrel Bisulfate (Plavix) 75 Mg Tablet 75 MG PO DAILY Ferrous Sulfate (Iron) 325 Mg Tablet 325 MG PO DAILY Levothyroxine Sodium (Levo-T) 100 Mcg Tablet 100 MCG PO DAILY Metoprolol Tartrate (Metoprolol Tartrate) 25 Mg Tablet 25 MG PO BID Triamterene/HCTZ 75-50 mg (Triamterene/HCTZ 75-50 mg) 1 Each Tablet 0.5 TABLET PO DAILY Vit A/Vit C/Vit E/Zinc/Copper (Preservision Areds Softgel) 1 Each Capsule 1 EACH PO DAILY General Time Seen by MD: 14:20 Transferred From: longterm Chief Complaint Leg injury left Hx Obtained From: Patient Unable to Obtain Hx: Patient condition, Mental status Onset Occurred: Onset unknown Symptom Duration: Since onset Location: : Leg left: Leg right Quality: Painful Severity: Current: Severe Recent Healthcare: Recent doctor visit Past Medical History Past Medical History Notes: Admit 05/17/16-05/18/16 Past Medical History CVA w/expressive aphasia Dysphagia Schatzki's ring Gastric Polyps Dementia Reports: Hypertension, Stroke Reports: Thyroid disease Past Surgical History None reported Family History Noncontributory Smoking History Unknown if Ever Smoker Social History DNR per records Other Social History: Good social support, Local resident Ambulatory Status Independent Review of Systems Decreased PO intake Unable to Obtain ROS Patient condition, Mental status Musculoskeletal: Reports: Extremity pain, Extremity swelling Neurologic: Reports: Problem walking Complete sys rev & neg: except as marked. Physical Exam Initial Vital Signs Vital Signs (First) Date Time Temp Pulse Resp B/P Pulse Ox O2 Delivery O2 Flow Rate FiO2 06/05/16 14:30 37.1 89 16 117/56 97 Room Air Initial VS: Reviewed, Vital signs normal Skin: Warm, Dry, No cyanosis Psychiatric: Mood/affect normal, Behavior normal, Normal thought content Lower Extremity / Pelvis / MS: Neurologic intact, Vascular intact Left Thigh: Positive: Swelling present... Right Leg / Calf: Positive: Tenderness present... Left Leg / Calf: Positive: L calf > R calf, Swelling present..., Tenderness present... Legs tender to extremely light touc, bilaterally Pt able to move legs No overt signs of cellulitis or infection Ankle / Foot: Atraumatic, Inspection NL General/Constitutional: Awake, No acute distress, Well appearing, Well developed, Well hydrated, Not toxic appearing Pt is mildly demented and has expressive aphasia Respiratory / Chest: Atraumatic, Breath sounds NL, Breath sounds = bilat, No respiratory distress, No rales, No rhonchi, No wheezing, No retractions, No stridor Cardiovascular: Heart rate NL, Heart sounds NL Heart Rate / Rhythm: Positive: Irreg irregular rhythm Speech: Positive: Expressive aphasia (from prior CVA) Interpretation & Diagnostics Lab Results Interpretation Result Diagram: 06/05/16 1628 06/05/16 1628 Test 06/05/16 16:28 White Blood Count 10.0th/mm3 (3.8-10.1) Red Blood Count 3.68mil/mm3 (3.90-5.20) Hemoglobin 10.7g/dL (12.0-15.6) Hematocrit 32.6% (35.0-46.0) Mean Corpuscular Volume 88.6fL (81-100) Mean Corpuscular Hemoglobin 29.1pg (27.0-35.0) Mean Corpuscular Hemoglobin Concent 32.8% (32.0-37.0) Red Cell Distribution Width 14.9% (12.3-15.4) Platelet Count 302bil/L (150-400) Neutrophils (%) (Auto) 72.8% (40-74) Lymphocytes (%) (Auto) 14.6% (14-46) Monocytes (%) (Auto) 8.9% (4-12) Eosinophils (%) (Auto) 2.3% (0-5) Basophils (%) (Auto) 0.5% (0-3) Sodium Level 134mEq/L (134-144) Potassium Level 3.9mEq/L (3.5-5.2) Chloride Level 92mEq/L (97-108) Carbon Dioxide Level 26mmol/L (18-29) Blood Urea Nitrogen 32mg/dL (8-27) Creatinine 0.98mg/dL (0.57-1.00) Estimat Glomerular Filtration Rate 77mL/min (>59) Glucose Level 101mg/dL (60-99) Calcium Level 8.8mg/dL (8.5-10.1) Total Bilirubin 0.3mg/dL (0.0-1.2) Aspartate Amino Transf (AST/SGOT) 24U/L (0-50) Alanine Aminotransferase (ALT/SGPT) 22U/L (0-32) Alkaline Phosphatase 99U/L (25-165) Total Protein 6.9g/dL (6.4-8.4) Albumin 2.8g/dL (3.4-5.0) Hold Rice Top Tube Received (Received) Lab Results Interpretation: CBC normal CMP normal US Soft Tissue/Musculoskeletal IMPRESSION: Extensive DVT in the left lower extremity. The result was discussed with Dr. Sandoval in ER at the time of dictation. Dictated by: Nilda Headley M.D. on 06/05/2016 at 17:04 Approved by: Nilda Headley M.D. on 06/05/2016 at 17:05 Re-Eval/Medical Decision Med Decision/Clinical Course This is an 89-year-old female who developed stroke from atrial fibrillation in April with an expressive aphasia that she is still recovering from. She then several ground-level fall with a right pubic rami fracture and has been recovering in [facility]. The family brings her [facility] visit with a chief complaint of new acute left leg swelling. Only has a multitude of concerns of do not want to go back to her [place] at this time. They have additional concerns over her diet-she has been on a special swallow speech therapy diet, reports is unchanged bunch of time in [facility] and they are not certain what is going on with what she is receiving there. They also have questions about the gentamicin that she is being dosed with via a PICC for what sounds like an Escherichia coli, report was given inability pretty well initially-that she was starting to have increasing pain both in the right leg and left leg in recent days. They note that she is scheduled to initiate Coumadin, but appearing confused over 1 that starting-all the records from senior care facility indicated as planned for June 08, and she is currently on Plavix. She denies current chest pain shortness of breath and has no pain at rest. On exam she has normal vitals and is no distress. She does have tenderness to both lower extremities with just light touch, left leg is quite swollen-but has intact pulses without findings of phlegmasia cerulea dolens. The patient has no right lower extremity pain if not being touched. She finds like it uncomfortable. An ultrasound is positive or DVT. There is a large DVT. Discussed with radiology whether or not the patient may be a candidate for catheter directed thrombolysis, initial recommendation was to it is not entirely clear-this is sizable clot so that heparinization and admission with IR follow-up tomorrow for further clarification will be a reasonable option. Again the family does not wish the patient to go back to [place] this to, she is a complicated case with multiple comorbidities a need for anticoagulation, but already has had multiple falls, is about to start anticoagulation is not a simple likely in discharge patient. Furthermore she is also on antibiotics at present through an IV which will complicate the warfarin therapy as well. The patient's being admitted for further management. Speech therapy evaluation is been placed with the hope that they will help clarify her current dietary recommendations Case has been discussed with the admitting hospitalist Source of Hx: Old records Re-Evaluation/Progress : Time of Eval: 16:58 Re-Evaluation/Progress Note: Pt rechecked. Discussed US results and plan for admit, family undertsands and agrees with plan. Discussed code status, pt is DNR. Consultation #1: Referral / Consult Name: Nilda Headley MD, PhD Call Returned at: 17:09 Note: Consulted with radiologist regarding pt treatment plan. Consultation #2: Referral / Consult Name: Vivek Au MD Consulted With: Hospitalist Call Returned at: 17:28 Note: Discussed pt condition, accepts admit. Differential Diagnosis: Negative: Abrasion, Abscess, Hip fracture, Intertrochanteric fractur, Lesser trochant fracture, Puncture wound Discharge & Departure Impression: Primary Impression: DVT, lower extremity Affected thrombotic vein of extremity: unspecified vein of extremity Laterality: left Chronicity: acute Qualified Code: I82.402 - Acute embolism and thrombosis of unspecified deep veins of left lower extremity Additional Impressions: Atrial fibrillation Atrial fibrillation type: chronic Qualified Code: I48.2 - Chronic atrial fibrillation Expressive aphasia UTI (urinary tract infection) Urinary tract infection type: site unspecified Right leg pain Leg pain, left Disposition: ADMITTED TO HOSPITAL Discharge Condition All VS Reviewed: Yes Condition: Stable Referrals: Catalina Shanks (PCP) Suzette Ramsay MD Attestation Portions of this note were transcribed by Ross Broussard. I, Dr. Sandoval personally performed the history, physical exam and medical decision-making; I reviewed and confirmed the accuracy of the information in the transcribed note. Signed by: Shan Parker, 06/05/16 and 1754. copies to: Catalina Shanks; Suzette Ramsay MD, Matthew F MD Jun 05, 2016 15:10 ROSS BROUSSARD Jun 05, 2016 15:26
[2016-06-05 16:52] LABS: BASOPHILS % (AUTO) 0.5 % (0-3); EOSINOPHILS % (AUTO) 2.3 % (0-5); MONOCYTES % (AUTO) 8.9 % (4-12); Mean Corpuscular Hemoglobin 29.1 pg (27.0-35.0); Mean Corpuscular Volume 88.6 fL (81-100); NEUTROPHILS % (AUTO) 72.8 % (40-74); Platelet Count 302 bil/L (150-400)
--- NOTE | 2016-06-05 17:06 | DRSVH ---
PROCEDURE: US VEINOUS LEG DUPLEX UNILATERAL, LEFT INDICATIONS: swelling, ho pelvic fx ro DVT TECHNIQUE: Real-time imaging, as well as color and pulse Doppler interrogation, were performed of the lower extr emity deep veins from the inguinal ligament to the popliteal fossa. COMPARISON: None. FINDINGS: There is extensive filling defects involving the common femoral vein, femoral vein and popl iteal vein consistent with deep venous thrombosis. IMPRESSION: Extensive DVT in the left lower extremity. The result was discussed with Dr. Sandoval in ER at the time of dictation. Dictated by: Nilda Headley M.D. on 06/05/2016 at 17:04 Approved by: Nilda Headley M.D. on 06/05/2016 at 17:05
[2016-06-05] MEDS ORDERED: Heparin 25K Unit/500mL 0.45 NS 25,000 UNIT in IV Premix 1 EACH IV ONE (17:20)
[2016-06-05] MEDS ORDERED: Heparin 5,000 Unit/mL Inj IVPUSH ONE ×2 (17:20→18:05)
[2016-06-05] MEDS ORDERED: Ondansetron 2 mg/mL 2 mL Inj IVPUSH PRN (18:05)
[2016-06-05] MEDS ORDERED: Alum-Mag Hydrox-Simeth 30 mL Suspension PO PRN (18:05)
[2016-06-05] MEDS ORDERED: Heparin 5,000 Unit/mL Inj IVPUSH PRN ×2 (18:05→20:30)
[2016-06-05] MEDS ORDERED: Heparin 25K Unit/500mL 0.45 NS 25,000 UNIT in IV Premix 1 EACH IV SCH (18:05)
[2016-06-05] MEDS ORDERED: Polyethylene Glycol (PEG) 17 Gm Powder PO PRN (18:05)
[2016-06-05] MEDS ORDERED: Gentamicin Per Pharmacist XX ONE (18:10)
[2016-06-05 18:14] LABS: INR 0.99 ratio
[2016-06-05 18:34] VITALS: BP 114/54; PULSE 84; RESP 16; O2SAT 97
[2016-06-05 18:42] VITALS: BP 120/74; PULSE 91; RESP 18; O2SAT 97
[2016-06-05 18:43] VITALS: PULSE 97
--- NOTE | 2016-06-05 19:30 | NUR ---
Arrival Patient arrived to room 239-1 via stretcher from ED at 1825. Pt transferred to bed. Family at bedside. Heparin drip running at 1150units/hr in PICC. Admit and med rec completed by admit nurse.
--- NOTE | 2016-06-05 19:37 | NUR ---
Heparin Current order for Heparin drip is "cardiac heparin". Hospitalist aware and stated he will put in order for DVT heparin. mold shifter made aware and will look for order change.
[2016-06-05 20:00] VITALS: PULSE 93
--- NOTE | 2016-06-05 20:33 | PCM.HPMED ---
Subjective Date of Service Jun 05, 2016 Primary Provider: Admitting Physician: Vivek Au MD Primary Care Physician: Catalina Shanks Attending Physician: Vivek Au MD Admit Status: From the Emergency Department, Admit to Red Team Chief Complaint: LLE swelling /2 day History of Present Illness: 89 yo lady with history of HTN and dementia was seen in ED on 04/27/16 for new onset Afib after she was sent from urgent care for palpitaion .started on on ASA 325 and metoprolol she was admitted 05/05/16 to 05/07 for what seems acute L MCA ischemia and subacute embolic stroke /multifocal after she presented with right sided weakness and dysarthria.discharged on ASA and advised to start warfarin in few days after risk of hemorhagic conversion is less she came back with a fall and was admitted on May 17 for right pubic fracture and discharged to [facility] for rehab .she was given script for warfarin to be started next Monday .discharged on plavix Daughter noted she has left lower extrimity swelling today.patient also stated she has been feeling pain on left leg for 2 days which prompted ED visit. of note she was started on gentamycin via RUE PICC at [facility] for UTI ( 3 organisms ,sensitivity in cart ) .she would complete abx 05/27 as per daughter no chest pain or dyspnea denies fever. right sided wekaness has grdaually improved and patient was able to ambulate with a walker.dysargria also resolved.dysphagia fluctuation, in ED unremarkable vitals,LLE swollen,unremarkable lab extensive DVT on LLE on duplex,heparin drip started Review of Systems: comprhensive review systems perfomed ,pertinent postives and negatives included in HPI Allergies Coded Allergies: epinephrine (Verified Allergy, Intermediate, 05/03/16) omeprazole (Verified Allergy, Intermediate, 05/03/16) lisinopril (Verified Allergy, Mild, 05/03/16) procaine (Verified Allergy, Unknown, 05/03/16) Uncoded Allergies: FERROUS DEXTROSE INJECTIONS (Allergy, Severe, UNK, 05/03/16) Home Medications Atorvastatin Calcium (Atorvastatin Calcium) 40 Mg Tablet 40 MG PO HS Clopidogrel Bisulfate (Plavix) 75 Mg Tablet 75 MG PO DAILY Ferrous Sulfate (Iron) 325 Mg Tablet 325 MG PO DAILY Levothyroxine Sodium (Levo-T) 100 Mcg Tablet 100 MCG PO DAILY Metoprolol Tartrate (Metoprolol Tartrate) 25 Mg Tablet 25 MG PO BID Triamterene/HCTZ 75-50 mg (Triamterene/HCTZ 75-50 mg) 1 Each Tablet 0.5 TABLET PO DAILY Vit A/Vit C/Vit E/Zinc/Copper (Preservision Areds Softgel) 1 Each Capsule 1 EACH PO DAILY PMH HTN dementia recent CVA recent Afib recent pelvic fracture recent UTI Surgical History hysterectomy knee surgery Family History unremarkable Social History Hx Alcohol Use: No Hx Substance Use: No Smoking Status: Unknown if Ever Smoker Exam Vital Signs Vital Sign - Last Date Time Temp Pulse Resp B/P Pulse Ox O2 Delivery O2 Flow Rate FiO2 06/05/16 18:43 97 06/05/16 18:42 36.9 18 120/74 97 Room Air Exam Gen. patient is lying comfortably in hospital bed, HEENT: Head is normocephalic atraumatic, Pupils equal and reactive, extraocular movements intact, dry tongue Lungs clear to auscultation bilaterally Heart irregular rhythm without murmurs gallops or rubs Abdomen soft nontender without hepatosplenomegaly Extremities LLE markedly swollen Psych alert and oriented to person Neuro cranial nerves II through XII are grossly intact Lymph: There is no lymphadenopathy appreciated in the cervical supra infraclavicular regions Lab and Diagnostics Result Diagram: 06/05/16 1628 06/05/16 1628 X-Rays, CTs and MRIs PROCEDURE: US VEINOUS LEG DUPLEX UNILATERAL, LEFT INDICATIONS: swelling, ho pelvic fx ro DVT TECHNIQUE: Real-time imaging, as well as color and pulse Doppler interrogation, were performed of the lower extremity deep veins from the inguinal ligament to the popliteal fossa. COMPARISON: None. FINDINGS: There is extensive filling defects involving the common femoral vein, femoral vein and popliteal vein consistent with deep venous thrombosis. IMPRESSION: Extensive DVT in the left lower extremity. The result was discussed with Dr. Sandoval in ER at the time of dictation. Dictated by: Nilda Headley M.D. on 06/05/2016 at 17:04 Assessment & Plan 89 yo lady with history of HTN and dementia, recent CVA,recent Afib,recent pelvic fracture,recent UTI admitted with LLE extensive DVT # LLE extensive DVT,acute,poa -heparin drip started -please consult IR in am to see if she is a candidate for intervention given large clot burden -watch out for dyspnea -hold off warafrin pending IR eval and close neuro checks #REcent CVA -c/w plavix, statin -may continue upper extrimity PT -swallow eval in am,pureed diet for now -neurochecks q4h for 24 -48h to pick if any hemorrhagic conversion,stat CT if any concern #recently diagnosed afib -heparin,metoprolol -rate controlled now #recent UTI -c/w genta per pharmacy,may consider asking Dr Castanon to review the poly microbial urine culture for recomendation ,may as well be contaminant # recent pelvic fracture -pain controlled DNR/DNI,verified with patient and daughter at bedside inpatient status Resuscitation Status: DNR/DNI:Do Not Resuscitate/Intubate Time spent 60 minutes copies to: Catalina Shanks Melaku MD Jun 05, 2016 20:33
[2016-06-05 20:40] VITALS: BP 108/73; PULSE 83; RESP 16; O2SAT 95
--- NOTE | 2016-06-05 20:52 | PCM.CONPHA ---
Subjective Date of Service: Jun 05, 2016 LLE swelling /2 day Reason for Pharmacy Consult: Aminoglycoside Dosing Objective Vital Signs Date Time Temp Pulse Resp B/P Pulse Ox O2 Delivery O2 Flow Rate FiO2 06/05/16 18:43 97 06/05/16 18:42 36.9 91 18 120/74 97 Room Air 06/05/16 18:34 84 16 114/54 97 Room Air 06/05/16 14:30 37.1 89 16 117/56 97 Room Air Weight (Kilograms): 70.000 Height (Feet): 5 Height (Inches): 1.00 Test 06/05/16 16:28 White Blood Count 10.0th/mm3 (3.8-10.1) Red Blood Count 3.68mil/mm3 (3.90-5.20) Hemoglobin 10.7g/dL (12.0-15.6) Hematocrit 32.6% (35.0-46.0) Mean Corpuscular Volume 88.6fL (81-100) Mean Corpuscular Hemoglobin 29.1pg (27.0-35.0) Mean Corpuscular Hemoglobin Concent 32.8% (32.0-37.0) Red Cell Distribution Width 14.9% (12.3-15.4) Platelet Count 302bil/L (150-400) Neutrophils (%) (Auto) 72.8% (40-74) Lymphocytes (%) (Auto) 14.6% (14-46) Monocytes (%) (Auto) 8.9% (4-12) Eosinophils (%) (Auto) 2.3% (0-5) Basophils (%) (Auto) 0.5% (0-3) Prothrombin Time 10.6sec (8.1-12.5) Prothromb Time International Ratio 0.99ratio Sodium Level 134mEq/L (134-144) Potassium Level 3.9mEq/L (3.5-5.2) Chloride Level 92mEq/L (97-108) Carbon Dioxide Level 26mmol/L (18-29) Blood Urea Nitrogen 32mg/dL (8-27) Creatinine 0.98mg/dL (0.57-1.00) Estimat Glomerular Filtration Rate 77mL/min (>59) Glucose Level 101mg/dL (60-99) Calcium Level 8.8mg/dL (8.5-10.1) Total Bilirubin 0.3mg/dL (0.0-1.2) Aspartate Amino Transf (AST/SGOT) 24U/L (0-50) Alanine Aminotransferase (ALT/SGPT) 22U/L (0-32) Alkaline Phosphatase 99U/L (25-165) Total Protein 6.9g/dL (6.4-8.4) Albumin 2.8g/dL (3.4-5.0) Hold Rice Top Tube Received (Received) Assessment/Plan Assessment/Plan Gentamicin Dosing per Rx Continuation form [facility] Indication: UTI Current dosinmg q12h - which was just changed yesterday from 100mg q8h Peak & Trough due tomorrow AM, per RN at [facility]; GOAL PK: 3 - 5 MCG/ML, TROUGH <1MCG/ML Will change from previous schedule of 0800 to 899/2099, due to delay in obtaining necessary info Trough to be drawn 30 mins before [place] [address], infuse AM dose @ 0930 in 30mins, then Peak to be drawn @ 1030 Chandan Light PharmD Jun 05, 2016 20:52
[2016-06-05] MEDS: GENTAMICIN IV SCH ×2 (21:37)
[2016-06-05] MEDS: DEXTROSE IV SCH ×2 (21:37)
[2016-06-05] MEDS ORDERED: Gentamicin Per Pharmacist XX SCH (22:18)
[2016-06-06] VITALS (8 sets, daily range): BP systolic 115–136; BP diastolic 70–79; PULSE 66–103; RESP 14–18; O2SAT 93–98
--- NOTE | 2016-06-06 01:47 | NUR ---
Pain / Palliative Request Pt was tearful and painful, anxious, and was telling family she wants to go, she expressed feelings about and dying. Pt is confused but these statements appeared coherent. Pt was much more comfortable after morphine dose, but family did express desire to talk to someone regarding plans or options about palliative or comfort care. Informed family that this information would be passed on.
--- NOTE | 2016-06-06 04:43 | NUR ---
Pain / Movement / Mentation Pt has been incontinent, and is very painful with changing. Patient will state no pain, but I don't believe they are understanding. Premedicate before moving the patient is a good idea. Pt may appear to be more alert, but answers are inappropriate, pt will respond with a no to most questions, so if asked about pain, she will say "No", if you ask her where is she will say "No" as well.
[2016-06-06 07:34] LABS: BASOPHILS % (AUTO) 0.6 % (0-3); EOSINOPHILS % (AUTO) 1.7 % (0-5); MONOCYTES % (AUTO) 6.6 % (4-12); Mean Corpuscular Hemoglobin 29.2 pg (27.0-35.0); Mean Corpuscular Volume 89.3 fL (81-100); NEUTROPHILS % (AUTO) 77.4 % (40-74); Platelet Count 316 bil/L (150-400)
[2016-06-06] MEDS ORDERED: Gentamicin Serum Trough XX SCH (08:30)
[2016-06-06] MEDS ORDERED: Gentamicin Serum Peak XX SCH (10:00)
--- NOTE | 2016-06-06 10:43 | NUR ---
COMPOSITION BOARD PRESS OPERATOR consultation received. Evaluation was attempted. Pt screamed when HOB was elevated 10 degrees. Due to pain, evaluation is on hold. Discussed with MD and RN.
--- NOTE | 2016-06-06 10:49 | NUR ---
Palliative Care PRODUCT DEMONSTRATOR Note06/06/1709:35AM D: This radio script writer went to visit pt. and her family to discuss referral for palliative care services. Pt.'s , Akira, and daughter, Dari, were both in room. Pt. is 89yo woman who was admitted to [facility] from [facility] for treatment of leg swelling, possibly related to DVT and HTN. Pt. has had several admissions to [facility] over the last few months. Per Dari, pt. has been at [facility] for rehab care after a recent pelvic fracture. Pt. has moderate dementia and during the time this radio script writer was present was awake but appeared disoriented to her surroundings. Dari and Akira shared that Akira and pt. have been for 70 years. Daughter notes she does not want pt. to return to [facility] and they want to determine what other care situations are appropriate for pt. at this time given her ongoing declines in health. This radio script writer let family know that PC provider will come to see them later today to discuss goals and options for care. Family aware that Hospice may be an option, but referral to Hospice is pending provider assessment of clinical prognosis. This radio script writer let family know PC services will follow pt. during her stay at [facility]. A: Pt. is a frail-appearing elderly woman who may be appropriate for Hospice care due to several recent health issues, including CVA, pelvic fracture, DVT. Family expresses they want to learn about comfort care options for pt. P: Palliative Care provider to assess pt.'s clinical status and whether pt. is eligible for Hospice. Disposition pending goals of care discussion with family. KENA Tavarez, [facility] Palliative Care Services
[2016-06-06] MEDS: DEXTROSE IV SCH ×2 (10:57)
[2016-06-06] MEDS: GENTAMICIN IV SCH ×2 (10:57)
--- NOTE | 2016-06-06 12:02 | NUR ---
Palliative Care Palliative Care received verbal order from Dr Estevez 06/06/16 to assist with goals of care. Patient is an 89 year old woman with history of dementia, HTN, recent admission for CVA (05/03-05/07), recent Afib, recent pelvic fracture and recent UTI. She was admitted 06/05/16 for care of LLE extensive DVT. Patient resides at [facility]. Akira () [phone] Sabra (daughter) [phone], Palliative Care to follow. Naa Dodd
--- NOTE | 2016-06-06 12:15 | PCM.PHAPRO ---
Progress Gentamicin Dosing: -peak and trough levels not drawn correctly this morning. will retime for this evening Kristina Hernandez [facility] Jun 06, 2016 12:15
[2016-06-06] MEDS ORDERED: HYDROmorphone 0.5 mg/0.5 mL iSecure Syringe IVPUSH PRN (12:45)
--- NOTE | 2016-06-06 13:23 | NUR ---
Pain Pain managed with Morphine IV 1 mg Q 4H continuously with relief, pain aggravated with movement and weight on extremities. Light/warm blanket provided for comfort. Awaiting Palliative Care to see patient and for evaluation. Family in bedside very appreciative. Will continue to monitor. Addendum: 06/06/16 at 1448 by KEY ELAINE RN Received PTT result 67.8, no changes in dosing. Addendum: 06/06/16 at 1512 by KEY ELAINE RN Gentamicin trough =3.5, Pharmacist will contact Dr. Nicole to discuss treatment.
--- NOTE | 2016-06-06 15:10 | DRSVH ---
PROCEDURE: US VEINOUS LEG DUPLEX UNILATERAL, RIGHT INDICATIONS: pain, r/o DVT TECHNIQUE: Real-time imaging, as well as color and pulse Doppler interrogation, were performed of the lower extr emity deep veins from the inguinal ligament to the popliteal fossa. COMPARISON: [facility], US, US VENOUS LEG DPLX UNI LT, 06/05/2016, 16:14. FINDINGS: Nonocclusive acute clot visualized within the right common femoral, popliteal vein as well as the profunda femoral vein. IMPRESSION: Nonocclusive deep venous thrombosis visualized within the right lower extremity. Flor Simmons RN given results by the bartacker at 1430 hrs. 06/06/2016 Dictated by: Tristen BREENA Interpreted: Ximena Quinn MD on 06/06/2016 at 15:08 Transcribed by: GISEL on 06/06/2016 at 15:10 Approved by: Ximena Quinn M.D. on 06/06/2016 at 16:49
--- NOTE | 2016-06-06 15:12 | DRSVH ---
PROCEDURE: X-RAY RIGHT ANKLE, TWO VIEWS ([id number]) INDICATIONS: pain, unable to move TECHNIQUE: 3 views of the ankle were acquired. COMPARISON: None. FINDINGS: Bones: No fractures or dislocations. Ankle mortise is normally aligned. No suspicious bony degener ative change present within the mid foot, most notably involving the tarsometatarsal level. Osteopen ia. Soft tissues: No tibiotalar joint effusion. Achilles tendon appears normal. IMPRESSION: No displaced fracture seen. If there is continued pain, followup exam or additional sidney ging such as MRI or CT could be performed for further assessment. Dictated by: Tristen Clay RRA Interpreted: Ximena Quinn MD on 06/06/2016 at 15:10 Transcribed by: GISEL on 06/06/2016 at 15:11 Approved by: Ximena Quinn M.D. on 06/06/2016 at 16:41
[2016-06-06] MEDS: Heparin 25K Unit/500mL 0.45 NS 25,000 UNIT in IV Premix 1 EACH IV SCH (15:16)
--- NOTE | 2016-06-06 15:21 | DRSVH ---
PROCEDURE: X-RAY RIGHT HIP, ONE VIEW ([id number]) INDICATIONS: pain, unable to move TECHNIQUE: 2 view(s) of the hip acquired. COMPARISON: [facility], CR, XR PELVIS W LATERAL HIP RT, 05/31/2016, 11:13. FINDINGS: Bones: Patient is status post right hip arthroplasty, with hardware components in expected positions . The hip joint appears congruent. The visualized bony structures appear intact. Bones are osteope kacey. Soft tissues: Overlying postoperative changes are noted. No suspicious soft tissue densities. IMPRESSION: Stable appearance of right hip arthroplasty. Dictated by: Tristen Clay RRDomingo Interpreted: Ximena Quinn MD on 06/06/2016 at 15:12 Transcribed by: GISEL on 06/06/2016 at 15:20 Approved by: Ximena Quinn M.D. on 06/06/2016 at 16:42
--- NOTE | 2016-06-06 15:41 | NUR ---
Social Work- Initial Assessment: Data & Assessment: Pt is a 89 year old female admitted 06/05/16 for left lower extremity DVT per H&P. Pt's insurance is [employer] and PCP is JI Curiel. SW met with pt and family (, daughters, and granddaughter) at bedside to discuss discharge plan, SW role explained. Pt comes from [facility]. POLST is on file. Pt is being followed by palliative care. Family is waiting to hear palliative care's recommendations, though their priority is to bring pt home at time of discharge. SW to follow up post palliative care assessment to determine discharge needs. Plan: SW to follow up post palliative care assessment to determine discharge needs. Family is hopeful to have pt return home at discharge. SW will continue to follow. KENA Mayes
--- NOTE | 2016-06-06 16:35 | PCM.PNMED ---
Subjective Date of Service Jun 06, 2016 Subjective Telemetry overnight was sinus tachycardia, heart rate low 100s, with short runs of PSVT to the 150s. The patient is resting in bed and in no acute distress unless there is movement. She reports right leg pain but cannot pinpoint where the pain is located. She denies headache, shortness of breath, chest pain, abdominal pain, nausea, vomiting, fever, chills, dysuria, diarrhea or constipation.She is voiding without difficulty. She is bedbound due to pain. . Exam Vital Signs Vital Sign - Last Date Time Temp Pulse Resp B/P Pulse Ox O2 Delivery O2 Flow Rate FiO2 06/06/16 12:30 36.6 100 18 115/70 96 Room Air Intake and Output 06/05/16 06/05/16 06/06/16 Cumulative From/Thru 15:00 23:00 07:00 06/05/16 19:56 - 06/06/16 06:26 Intake Total 223 ml 223 ml Balance 223 ml 223 ml Intake IV Total 223 ml 223 ml # Voids 3 3 Exam General: Elderly female lying in bed in no acute distress unless touched or moved, well-developed, well-nourished. HEENT: Normocephalic, atraumatic. External ears without defect. Pupils equal, round, and reactive to light. Anicteric sclerae, moist conjunctivae, and no lid lag. Oropharynx free of erythema and cobble stoning with moist mucosa. Neck: Supple with full range of motion. No lymphadenopathy or thyromegaly. Cardiovascular: Regular rate and rhythm with no murmurs, rubs, or gallops appreciated Pulmonary: Clear to auscultation bilaterally with no crackles, wheezes, or rhonchi. Normal respiratory effort with no use of accessory muscles. Abdomen: Soft, nontender, nondistended, bowel sounds present. No hepatosplenomegaly or masses appreciated. Extremities: No clubbing, cyanosis, or edema. Skin: Normal temperature, turgor, and texture; no rash, ulcers, or subcutaneous nodules appreciated. Neurological: Cranial nerves grossly intact. Psychiatric: Alert and oriented to person. . IVs and Medications Medications Reviewed: Medications were reviewed in detail Lab and Diagnostics Item Value Date Time Calcium Level 8.6 mg/dL 06/06/16 0704 Total Bilirubin 0.5 mg/dL 06/06/16 0704 Aspartate Amino Transf (AST/SGOT) 22 U/L 06/06/16 0704 Alanine Aminotransferase (ALT/SGPT) 19 U/L 06/06/16 0704 Alkaline Phosphatase 96 U/L 06/06/16 0704 Total Protein 6.3 g/dL L 06/06/16 0704 Albumin 3.0 g/dL L 06/06/16 0704 Result Diagram: 06/06/16 0704 06/06/16 07 X-Rays, CTs and MRIs US VEINOUS LEG DUPLEX UNILATERAL, LEFT IMPRESSION: Extensive DVT in the left lower extremity. The result was discussed with Dr. Sandoval in ER at the time of dictation. Dictated by: Nilda Headley M.D. on 06/05/2016 at 17:04 . Assessment & Plan 89 yo lady with history of hypertension, dementia, recent CVA, atrial fibrillation, recent pelvic fracture, recent UTI who was admitted to [facility] with LLE extensive DVT. 1. Acute left lower extremity extensive DVT, present on admission. Active - Continue heparin gtt. - Watch out for dyspnea. - Consider starting warfarin depending on goals of care established by Palliative. 2. Acute non-specific right leg pain, present on admission. Active. - Ordered Venous Doppler Ultrasound, XR of ankle, knee, and hip. Chronic Problems: Recent CVA. - Continue Plavix and statin. - May continue upper extremity PT. - Swallow eval ordered and pending Continue pureed diet for now. - Neurochecks q4h for 24 -48h to pick if any hemorrhagic conversion, stat CT if any concern. Recently diagnosed atrial fibrillation. - Continue heparin gtt. - Continue metoprolol for rate control. Recent UTI, Treated. - Gentamicin level came back toxic therefore discontinued. - Discontinued gentamicin as this should be adequate treatment in context of possible contaminated urine culture. Recent pelvic fracture. - Continue Vicodin and Tylenol for pain pending Palliative recommendations. DNR/DNI,verified with patient and daughter at bedside . Resuscitation Status: DNR/DNI:Do Not Resuscitate/Intubate Attending Statement The patient was seen and examined together with Dr. Caballero on 06-06-16 and I agree with the history, exam and plan as outlined in the note above. Patient is on prn IV Dilaudid for pain. iCara Caballero DO Jun 06, 2016 16:31 Aditi Estevez MD Jun 07, 2016 16:15
--- NOTE | 2016-06-06 17:20 | NUR ---
spiritual care: pt request pt in pain, calling out, family reassuring and comforting and waiting for palliative care. spiritual care to follow
[2016-06-06] MEDS ORDERED: Lidocaine 2% 6mL Topical Jelly TOPICAL ONE (18:55)
[2016-06-06] MEDS ORDERED: HYDROcodone-APAP 5-325 mg Tablet PO PRN (19:25)
--- NOTE | 2016-06-06 19:49 | PCM.CONPAL ---
Date of Service Jun 06, 2016 Date of Hospital Admission: Jun 05, 2016 at 17:21 Date of Palliative Consult: Jun 06, 2016 Requesting Provider: Aditi Estevez MD Reason Palliative Care Consult: Goals of Care Discussion Hospital Unit @time of consult: Other (MOC) Palliative Care Recommendation Summary of palliative recommendations: -Symptom management (Pain/other) Pain-- etiology is unclear and out of proportion for time since pelvic fracture. Patient had improved significantly with respect to the pain from her pelvic fracture when at rehabilitation. It seems like it might be focused in this region but is a bit unclear. Management seems to work best with hydromorphone. Dementia/ delirium-- patient has some baseline cognitive impairment. Seems significantly more evident but complicated with recent urinary tract infection multiple hospitalizations and now narcotics. CVA-- significant improvement in ability to swallow and ambulate with the assistance of a walker. Goals of care-reviewed with family in that patient cannot participate due to her altered mental status. Her is given information by family due to his hearing deficit. All family including her seem to be in agreement on goals of care. They wish patient to be transferred home but preferably with better pain control and possibly some understanding as to its cause. Family is willing to support patient and her in this transfer. At this point she does not exactly have a terminal disease but has had multiple medical issues. Goal would be to improve pain management, get her home and see if she is able to build some recovery. If she continues to decline family would like hospice to be engaged as soon as appropriate. Nutritional support reviewed. 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 DNR/DNI and no feeding tube. They would like goal of comfort in including home with a goal of not returning to the hospital -Family/emotional support-extensive Additional Medical Diagnoses with primary management by Hospitalist team include : We will defer to hospitalist team regarding further evaluation of possible etiology of pain. Unclear if would benefit from further imaging such as CT of pelvis and or orthopedic evaluation for possible injection if site of pain can be identified Possible hospice info visit during hospitalization- Problems: End of Life Preferences DNR/DNI no feeding tube-- aiming for comfort but at this time would not withdrawal of care Goals of Care Comfort with pain meds home health and hospice if more appropriate Disposition To be determined disposition definitely to be home but would like identification for cause of pain and management first Resuscitation Status Resuscitation Status: DNR/DNI:Do Not Resuscitate/Intubate POLST Updates/Changes Artificially Admin Nutrition: No Artifical Nutrition by Tube POLST Discussed with: Spouse/Other . Symptom management: Pain, Delirium Pt History History of Present Illness Palliative care note Request for pain management as well as review of goals of care Requesting physician Dr. 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 In early April she was seen by her PCP with note of atrial fibrillation. She started on ASA and on May 05 was seen in the emergency room for acute CVA. There was also note of other subacute lesions on her subsequent scan. Patient's symptoms improved over time being able to eat soft food and improved ability to ambulate. May 17 she was being assisted in the shower when she apparently became weak and was assisted to the ground. Initially she had some pain but it was not until the next day when she was noted to have severe pain and was evaluated with diagnosis of pelvic ramus fracture. There is that this time that she was transferred to [facility] and was gradually doing better with physical therapy able to walk with a walker sit in a chair. She was hoping to be able to go home but then developed symptoms of a urinary tract infection multi resistant requiring IV antibiotics. She stayed at the half-way and additional 4 days to complete this course and was about to be discharged when her family noticed significant swelling in her left leg with subsequent diagnosis of DVT. She is now hospitalized on heparin but has now developed severe pain in the right leg and or hip pelvic area. She is not able to localize her pain but she yells out with any attempt to reposition. Her family has also noticed that she can be calm not moving and then suddenly have sudden severe pain again somewhere in pelvic area. There is no known additional fall. Patient and her have been for 70 years. They have 7 children majority of which live locally and are very involved and supportive. The patient has verbalized to her family that she wants to go home/only home- and seems to indicate that she is ready to . This seems to be mostly in response to being in the half-way as well as her level of pain. She has some degree of anorexia Burton catheter in place due to severity of pain with movement Goal for all involved is adequate pain management and to have her at home Past Medical History Significant PMH Noted: Allergies Coded Allergies: epinephrine (Verified Allergy, Intermediate, 05/03/16) omeprazole (Verified Allergy, Intermediate, 05/03/16) lisinopril (Verified Allergy, Mild, 05/03/16) procaine (Verified Allergy, Unknown, 05/03/16) Uncoded Allergies: FERROUS DEXTROSE INJECTIONS (Allergy, Severe, UNK, 05/03/16) Home Medications Atorvastatin Calcium (Atorvastatin Calcium) 40 Mg Tablet 40 MG PO HS Clopidogrel Bisulfate (Plavix) 75 Mg Tablet 75 MG PO DAILY Ferrous Sulfate (Iron) 325 Mg Tablet 325 MG PO DAILY Levothyroxine Sodium (Levo-T) 100 Mcg Tablet 100 MCG PO DAILY Metoprolol Tartrate (Metoprolol Tartrate) 25 Mg Tablet 25 MG PO BID Triamterene/HCTZ 75-50 mg (Triamterene/HCTZ 75-50 mg) 1 Each Tablet 0.5 TABLET PO DAILY Vit A/Vit C/Vit E/Zinc/Copper (Preservision Areds Softgel) 1 Each Capsule 1 EACH PO DAILY PMH HTN dementia-mild to moderate Hypothryoidism Hx Schatzki ring recent CVA recent Afib recent pelvic fracture recent UTI Surgical History hysterectomy knee surgery Hx R hip arthroplasty Social History Living Situation: Because her of 70 years, he remains us due to continues to drive but is very hard of hearing Responsive Patient Symptoms Pain (current): Severe *Requires 72 Hour Followup Tiredness/Fatigue: Mild Anorexia: Moderate Shortness of Breath: Mild Palliative Performance Scale PPS Patient Status: Current PPS Ambulation: Reduced PPS Activity: Unable to do most activity PPS Self-Care: 2 person assist PPS Conscious Level: Full or drowsey, +/- confusion Performance Scale: 60% Allergy Allergies Reviewed: Yes Medications Current Medications: Current Medications Al Hydrox/Mg Hydrox/Simethicone 30 ml Q6H PRN PO; Start 06/05/16 at 18:05 Ondansetron HCl 4 to 8 mg Q4H PRN IVPUSH; Start 06/05/16 at 18:05 Senna 17.2 mg BID PRN PO; Start 06/05/16 at 18:05 Polyethylene Glycol 17 gm DAILY PRN PO; Start 06/05/16 at 18:05 Heparin Sodium (Porcine) Per Protocol for a... PRN PRN IVPUSH; Start 06/05/16 at 18:05; Stop 06/05/16 at 20:28; Status DC Atorvastatin Calcium 40 mg HS PO; Start 06/05/16 at 21:00 Clopidogrel Bisulfate 75 mg DAILY PO Last administered on 06/06/16 09:03; Admin Dose 75 MG; Start 06/06/16 at 08:30 Ferrous Sulfate 325 mg DAILY PO Last administered on 06/06/16 09:03; Admin Dose 325 MG; Start 06/06/16 at 08:30 Levothyroxine Sodium 100 mcg DAILY PO Last administered on 06/06/16 09:03; Admin Dose 100 MCG; Start 06/06/16 at 08:30 Metoprolol Tartrate 25 mg BID PO Last administered on 06/06/16 09:03; Admin Dose 25 MG; Start 06/05/16 at 20:30 Triamterene/HCTZ 1 capsule DAILY PO Last administered on 06/06/16 09:05; Admin Dose 1 CAPSULE; Start 06/06/16 at 08:30 Multivitamins/ Minerals Therapeutic 1 tablet DAILY PO Last administered on 09:03; Admin Dose 1 TABLET; Start 06/06/16 at 08:30 Morphine Sulfate 1-2 mg Q4H PRN IVPUSH Last administered on 06/06/16 17:07; Admin Dose 1 MG; Start 06/05/16 at 20:05 Heparin Sodium (Porcine) Per Protocol for a... PRN PRN IVPUSH; Start 06/05/16 at 20:30 Gentamicin Sulfate/Dextrose/ Water 51 ml @ 102 mls/hr Q12H IV Last administered on 06/06/16 10:57; Admin Dose 102 MLS/HR; Start 06/05/16 at 21:00 ; Stop 06/06/16 at 13:20; Status DC Miscellaneous 1 ONCE XX; Start 06/06/16 at 10:00; Stop 06/06/16 at 12:13; Status DC Miscellaneous GENTAMICIN TROUGH PER PHARMACY ONCE XX; Start 06/06/16 at 08:30; Stop 06/06/16 at 12:13; Status DC Pharmacy Consult 1 ea DAILY XX; Start 06/05/16 at 22:18; Stop 06/06/16 at 13:20 ; Status DC Hydromorphone HCl 0.25 mg ONCE PRN IVPUSH Last administered on 06/06/16t 14:31 ; Admin Dose 0.25 MG; Start 06/06/16 at 12:45 Scheduled Atorvastatin Calcium (Atorvastatin Calcium) 40 Mg Tablet 40 MG PO HS Clopidogrel Bisulfate (Plavix) 75 Mg Tablet 75 MG PO DAILY Ferrous Sulfate (Iron) 325 Mg Tablet 325 MG PO DAILY Levothyroxine Sodium (Levo-T) 100 Mcg Tablet 100 MCG PO DAILY Metoprolol Tartrate (Metoprolol Tartrate) 25 Mg Tablet 25 MG PO BID Triamterene/HCTZ 75-50 mg (Triamterene/HCTZ 75-50 mg) 1 Each Tablet 0.5 TABLET PO DAILY Vit A/Vit C/Vit E/Zinc/Copper (Preservision Areds Softgel) 1 Each Capsule 1 EACH PO DAILY Objective Findings Exam Vital Sign - Last Date Time Temp Pulse Resp B/P Pulse Ox O2 Delivery O2 Flow Rate FiO2 06/06/16 12:30 36.6 100 18 115/70 96 Room Air Intake and Output 06/05/16 06/05/16 06/06/16 Cumulative From/Thru 15:00 23:00 07:00 06/05/16 19:56 - 06/06/16 06:26 Intake Total 223 ml 223 ml Balance 223 ml 223 ml IV Total 223 ml 223 ml # Voids 3 3 General: Chemically sedated, Other (very sedated until attempt to reposition particularly her right leg and she yells and pain despite morphine and hydromorphone 2 hours prior) HEENT: Scleral Anicteric Heart: Dysrhythmia Present Lungs: Clear to Auscultation Extremities: Edema (L LE>>R) Skin: Other (pale, elderly) Lab/Diagnostics Lab and Imaging results reviewed in detail in EMR. H/H normal renal fx, albumin 2.8-3 hip and ankle xray on R negative. Patient/Family Conference Members Present Family Members Present Akira, multiple sons and daughters and adult grandchildren Medical Team Members Present? Usha NAG[facility] Discussion/Goals of Care Discussion FAMILY UNDERSTANDING OF DISEASE: DISEASE PROGRESSION/EVIDENCE OF DECLINE: SYMPTOM BURDEN: GOALS: HOPES/WORRIES: FAMILY WISHES/VALUES: Do you want to be told truth about his illness, even if unpleasant? Does family want to know prognosis when it can be predicted, to better guide treatment decisions? What is quality of life for the patient: to be able to interact with their loved ones and friends, to travel, not to be bedbound, to be independent in taking care of themselves: Would patient choose quality of life over quantity of life? Would comfort care be more important than being awake and alert? If patient is no longer alert and aware because of their illness, would you choose comfort for them? Palliative Care counselled: Time spent Total time 80 minutes; >50% face to face with patient and/or family, providing counselling regarding plans and recommendations, and in care coordination with his/her medical teams. With 2 separate family conferences addressing issues of pain nutrition hydration and options for discharge to home. Discussion with hospital team. security services specialist gone when this was completed, communication tomorrow I also spent an additional [ ] minutes counseling for advanced care planning with the patient/the patients family/the surrogate decision maker. copies to: Catalina Shanks Deborah A MD Jun 06, 2016 19:49
[2016-06-06] MEDS ORDERED: Gentamicin Serum Trough XX ONE (20:30)
[2016-06-06] MEDS ORDERED: Gentamicin Serum Peak XX ONE (22:00)
[2016-06-06] MEDS: Nystatin 100,000 Unit/Gm 15 Gm Powder TOPICAL SCH (22:20)
[2016-06-07 00:30] VITALS: BP 115/72; PULSE 109; RESP 18; O2SAT 95
--- NOTE | 2016-06-07 03:47 | NUR ---
Jacobo / Pain Pt now has jacobo catheter, over 1300 out once placed thanks to Maria R Lam RN. Pt is still very painful with any movement. Turning has been refused by patient and family. Pt has nystatin for yeasty groin now, please do not use briefs, just use incontinent pads underneath. Pt has been noticeably more comfortable after jacobo placement, hasn't needed any more morphine for pain.
[2016-06-07 06:06] VITALS: BP 112/69; PULSE 106; RESP 16; O2SAT 95
[2016-06-07 06:17] LABS: BASOPHILS % (AUTO) 0.4 % (0-3); EOSINOPHILS % (AUTO) 1.2 % (0-5); MONOCYTES % (AUTO) 10.4 % (4-12); Mean Corpuscular Hemoglobin 29.5 pg (27.0-35.0); NEUTROPHILS % (AUTO) 75.6 % (40-74); Platelet Count 317 bil/L (150-400)
[2016-06-07 06:42] LABS: Magnesium 1.7 mg/dL (1.6-2.6); Phosphorus 4.4 mg/dL (2.5-4.9)
[2016-06-07] MEDS: Nystatin 100,000 Unit/Gm 15 Gm Powder TOPICAL SCH ×2 (08:30→19:55)
[2016-06-07 11:29] VITALS: PULSE 98
--- NOTE | 2016-06-07 12:56 | PCM.PALLBR ---
Palliative Care Recommendation Summary of palliative recommendations: -Symptom management (Pain/other) Pain-- etiology is unclear and out of proportion for time since pelvic fracture. Patient had improved significantly with respect to the pain from her pelvic fracture when at rehabilitation. It seems like it might be focused in this region but is a bit unclear. Management seems to work best with hydromorphone. Very possible the consideration of statin myopathy as cause. As yet no other cause identified. May have component of PMR but sx are diffuse and she is not a good enough historian to determine if proximal AM sx. Will see how she does without statin over the next few days. There is still the possibility of alternate cause such as pelvic pathology. Will postpone hospice referral for now to see if she has improvement off med Poor PO intake-food or fluids. Due to issue of positioning this may need to be addressed with IV in the short term. Dementia/ delirium-- patient has some baseline cognitive impairment. Seems significantly more evident but complicated with recent urinary tract infection multiple hospitalizations and now narcotics. Mentation improved today from yesterday CVA-- significant improvement in ability to swallow and ambulate with the assistance of a walker. Goals of care-reviewed with family in that patient cannot participate due to her altered mental status. Her is given information by family due to his hearing deficit. All family including her seem to be in agreement on goals of care. They wish patient to be transferred home but preferably with better pain control and possibly some understanding as to its cause. Family is willing to support patient and her in this transfer. At this point she does not exactly have a terminal disease but has had multiple medical issues. Goal would be to improve pain management, get her home and see if she is able to build some recovery. If she continues to decline family would like hospice to be engaged as soon as appropriate. Nutritional support reviewed. Encourage patient to take by mouth but family is definitely against option of feeding tube which apparently was attempted during her CVA -DPOA/Advanced Directives/POLST- is the main DURABLE POWER OF CALL PERSON but has remarkable support from large extended family and all seem to be in agreement. DNR/DNI and no feeding tube. They would like goal of comfort in including home with a goal of not returning to the hospital -Family/emotional support-extensive Additional Medical Diagnoses with primary management by Hospitalist team include : Hydration/nutrition Hx UTI-multiresistant Urinary retention Debility Problems: End of Life Preferences DNR/DNI no feeding tube-- aiming for comfort but at this time would not withdrawal of care Goals of Care Comfort with pain meds home health and hospice if more appropriate Disposition To be determined disposition definitely to be home but would like identification for cause of pain and management first Resuscitation Status Resuscitation Status: DNR/DNI:Do Not Resuscitate/Intubate POLST Updates/Changes Artificially Admin Nutrition: No Artifical Nutrition by Tube POLST Discussed with: Spouse/Other . Symptom management: Pain, Delirium Total time 40 minutes; >50% face to face with patient and/or family, providing counselling regarding plans and recommendations, and in care coordination with his/her medical teams. Including coordination of care with family/hospital team/med management. I also spent an additional [ ] minutes counseling for advanced care planning with the patient/the patients family/the surrogate decision maker. copies to: Dickson Shanksinmary WORKMAN Palliative Brief Note Date of Service Jun 07, 2016 . Patient is seen with a son and daughter at bedside. Her daughter observed that movement hurts but then when stable in position- settles This happened last lamar with attempting to sit her upright to try some juice and then later with positioning legs for jacobo placement. RN had questioned about statin which was started only a few weeks ago. She has been on atorvastatin 40 mg HS She is taking minimal PO-in part due to being in bed. Did have urinary retention of about 1600 cc--the jacobo did seem to improve her sx She is awake and responds to suggestions/questions but usually only 1 word responses-like "oh no" when talking about moving her position. She is able to joke a bit and smile at family. This sounds closer to her recent baseline O: abd soft CN = mentation as above exquisite tenderness to pressure-squeeze LE>>back or arms-- but still evident. CK normal, CRP is 18, WBC 11K, mild stable anemia hip and ankle xrays- no fx. knee not read daughter states she was able to see arthritis doc 1 week ago and get up on exam table. Jania Ewing MD Jun 07, 2016 12:56
[2016-06-07] MEDS: Heparin 25K Unit/500mL 0.45 NS 25,000 UNIT in IV Premix 1 EACH IV SCH (13:46)
--- NOTE | 2016-06-07 13:55 | DRSVH ---
PROCEDURE: X-RAY RIGHT KNEE, ONE OR TWO VIEWS ([id number]) INDICATIONS: pain TECHNIQUE: 4 views of the knee were acquired. COMPARISON: [facility], CR, XR KNEE 1 OR 2VW RT, 05/17/2016, 16:18. FINDINGS: Bones: No fractures or dislocations. No suspicious bony lesions. Extensive tricompartmental osteoar thritis with prominent marginal spurs. Mild varus angulation of the lower leg redemonstrated. Soft tissues: Moderately large joint effusion. No suspicious soft tissue calcifications. IMPRESSION: 1. Large joint effusion redemonstrated. 2. Tricompartmental knee joint degeneration. Dictated by: Tristen ANTONIO Interpreted: Ximena Quinn MD on 06/07/2016 at 13:54 Transcribed by: GISEL on 06/07/2016 at 13:55 Approved by: Ximena Quinn M.D. on 06/07/2016 at 16:42
--- NOTE | 2016-06-07 15:21 | NUR ---
Pain Pt vocalizes pain with movement. Complains of pain when the head of the bed is raised to any degree, also complains of pain when attempting to move her lower extremities at all. Attempted to provide anali care to this patient and she pushed staff member's hands away and would not allow care to be provided. She was premedicated for x-ray with IV morphine with good results.
--- NOTE | 2016-06-07 15:33 | NUR ---
NUTRITION ASSESSMENT: ASSESS: 89 YO female admitted for LLE extensive DVT and pelvic pain. Pt diet has been advanced to pureed with nectar thick liquids but pt continues to refuse meals. Pt does not desire a feeding tube. Family does not desire hospice at this time but want comfort to be the main focus right now and may decide on hospice later. PMHx: UTI, gastric, polyps, HTN, a-fib, CVA, Pelvic fracture, dementia/delirium. LABS: Reviewed. Glu 109, Alb 3.4. MEDS: Reviewed. GI: No BM reported at this time. CURRENT WT: 70.0 kg. DIET: Pureed, nectar thick. PO refused x 2 days. EST. NEEDS: 7340-5848 kcals (25-30 kcals/kg BW), 70-105 g protein (1.0-1.5 g/kg BW), 4727-7385 mL fluids (1 mL/kcal) NUTRITION DIAGNOSIS: 1.) Inadequate oral intake related to mentation and chewing /swallowing difficulties as evidenced by current refusal of meals x 2 days. NUTRITION INTERVENTION: 1.) Will add nectar thick ensure to all trays. MONITOR / EVAL: PO intake, labs, nutritional status and POC. Follow per high nutritional risk guidelines.
[2016-06-07 16:43] VITALS: BP 112/70; PULSE 98; RESP 16; O2SAT 96
--- NOTE | 2016-06-07 17:25 | PCM.PNMED ---
Subjective Date of Service Jun 07, 2016 Subjective Pt seen and examined. Patient is still complaining of diffuse pain, that is present when the patient moves, or is turned. Patient has no other complaints at the moment. No worsening right leg pain or swelling. Exam Vital Signs Vital Sign - Last Date Time Temp Pulse Resp B/P Pulse Ox O2 Delivery O2 Flow Rate FiO2 06/07/16 16:43 37.0 98 16 112/70 96 06/07/16 06:06 Room Air Intake and Output 06/06/16 06/06/16 06/07/16 Cumulative From/Thru 15:00 23:00 07:00 06/05/16 19:56 - 06/07/16 06:19 Intake Total 580 ml 256 ml 1059 ml Output Total 1600 ml 1600 ml Balance 580 ml -1344 ml -541 ml Intake Oral 25 ml 25 ml IV Total 555 ml 256 ml 1034 ml Output Urine Total 1600 ml 1600 ml # Voids 3 6 Exam General: Older female lying in bed acute distress, well-developed, well- nourished, appropriately interactive. HEENT: Normocephalic, atraumatic. External ears without defect. Pupils equal, round, and reactive to light. Anicteric sclerae, moist conjunctivae, and no lid lag. Oropharynx free of erythema and cobble stoning with moist mucosa. Neck: Supple with full range of motion. No jugular venous distension. No bruits. No lymphadenopathy or thyromegaly. Cardiovascular: Regular rate and rhythm with no murmurs, rubs, or gallops appreciated. Pulmonary: Clear to auscultation bilaterally with no crackles, wheezes, or rhonchi. Normal respiratory effort with no use of accessory muscles. Abdomen: Soft, mild tenderness to palpation diffusely throughout her abdomen, nondistended, bowel sounds present. No hepatosplenomegaly or masses appreciated. Left flank and CVA tenderness on the left. Extremities: No clubbing, cyanosis, or edema. Skin: Normal temperature, turgor, and texture; no rash, ulcers, or subcutaneous nodules appreciated. Neurological: Cranial nerves grossly intact. Normal muscle strength, tone, and bulk. Reflexes, coordination, and sensory function within normal limits. Psychiatric: Normal mood and affect. Alert and oriented to person, place, and time. Lab and Diagnostics Result Diagram: 2/21/17 0520 2/21/17 0520 X-Rays, CTs and MRIs US VEINOUS LEG DUPLEX UNILATERAL, LEFT IMPRESSION: Extensive DVT in the left lower extremity. The result was discussed with Dr. Sandoval in ER at the time of dictation. Dictated by: Nilda Headley M.D. on 06/05/2016 at 17:04 . Assessment & Plan 89 yo lady with history of hypertension, dementia, recent CVA, atrial fibrillation, recent pelvic fracture, recent UTI who was admitted to [facility] with LLE extensive DVT. 1. Acute left lower extremity extensive DVT, present on admission. Active - Continue heparin gtt. - Watch out for dyspnea. - As per patients family in the discussion we had, the patients family would like to pursue warfarin - will provide first dose tonite 2. Acute non-specific right leg pain, present on admission. Active. - Ordered Venous Doppler Ultrasound, XR of ankle, knee, and hip. Chronic Problems: Recent CVA. - Continue Plavix and statin. - May continue upper extremity PT. - Swallow eval ordered and pending Continue pureed diet for now. - Neurochecks q4h for 24 -48h to pick if any hemorrhagic conversion, stat CT if any concern. Recently diagnosed atrial fibrillation. - Continue heparin gtt. - Continue metoprolol for rate control. Recent UTI, Treated. - Gentamicin level came back toxic therefore discontinued. - Discontinued gentamicin as this should be adequate treatment in context of possible contaminated urine culture. Recent pelvic fracture. - Continue Vicodin and Tylenol for pain pending Palliative recommendations. DNR/DNI . Resuscitation Status: DNR/DNI:Do Not Resuscitate/Intubate Cesar Reilly MD Jun 07, 2016 17:25
[2016-06-07 20:00] VITALS: PULSE 127
[2016-06-07 21:09] VITALS: BP 93/53; PULSE 105; RESP 15; O2SAT 93
--- NOTE | 2016-06-07 21:39 | PCM.CONPHA ---
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), pubic fracture (05/17), UTI Objective Vital Signs Date Time Temp Pulse Resp B/P Pulse Ox O2 Delivery O2 Flow Rate FiO2 06/07/16 16:43 37.0 98 16 112/70 96 06/07/16 11:29 98 06/07/16 06:06 36.7 106 16 112/69 95 Room Air 06/07/16 00:30 37.1 109 18 115/72 95 Room Air Intake and Output 06/05/16 06/06/16 06/07/16 00:00 00:00 00:00 Intake Total 803 ml Balance 803 ml Weight (Kilograms): 70.000 Height (Feet): 5 Height (Inches): 1.00 Test 06/05/16 16:28 06/06/16 07:04 06/06/16 09:55 06/06/16 11:06 Prothrombin Time 10.6sec (8.1-12.5) Prothromb Time International Ratio 0.99ratio Hold Rice Top Tube Received (Received) Total Bilirubin 0.5mg/dL (0.0-1.2) Aspartate Amino Transf (AST/SGOT) 22U/L (0-50) Alanine Aminotransferase (ALT/SGPT) 19U/L (0-32) Alkaline Phosphatase 96U/L (25-165) Total Protein 6.3g/dL (6.4-8.4) Albumin 3.0g/dL (3.4-5.0) Gentamicin Level Trough 3.5ug/mL Rx (0.5-1.5) Gentamicin Level Peak 3.2ug/mL Rx (4-8) Test 06/06/16 21:40 06/07/16 05:20 06/07/16 08:00 Hold Urine Received (Received) White Blood Count 11.2th/mm3 (3.8-10.1) Red Blood Count 3.49mil/mm3 (3.90-5.20) Hemoglobin 10.3g/dL (12.0-15.6) Hematocrit 31.4% (35.0-46.0) Mean Corpuscular Volume 90.0fL (81-100) Mean Corpuscular Hemoglobin 29.5pg (27.0-35.0) Mean Corpuscular Hemoglobin Concent 32.8% (32.0-37.0) Red Cell Distribution Width 14.8% (12.3-15.4) Platelet Count 317bil/L (150-400) Neutrophils (%) (Auto) 75.6% (40-74) Lymphocytes (%) (Auto) 11.6% (14-46) Monocytes (%) (Auto) 10.4% (4-12) Eosinophils (%) (Auto) 1.2% (0-5) Basophils (%) (Auto) 0.4% (0-3) Sodium Level 137mEq/L (134-144) Potassium Level 3.7mEq/L (3.5-5.2) Chloride Level 95mEq/L (97-108) Carbon Dioxide Level 25mmol/L (18-29) Blood Urea Nitrogen 28mg/dL (8-27) Creatinine 0.95mg/dL (0.57-1.00) Estimat Glomerular Filtration Rate 79mL/min (>59) Glucose Level 94mg/dL (60-99) Calcium Level 8.6mg/dL (8.5-10.1) Phosphorus Level 4.4mg/dL (2.5-4.9) Magnesium Level 1.7mg/dL (1.6-2.6) Total Creatine Kinase 12U/L (21-215) C-Reactive Protein 18.1mg/dL (0.0-0.5) Procalcitonin 0.15ng/mL (0.00-0.08) Activated Partial Thromboplast Time 69.5sec (22.8-33.0) Assessment/Plan Assessment/Plan A/ - 89 y/o female patient brought into ED for extensive DVT on LLE on 06/05. Patient has hx of HTN, dementia with recent CVA and atrial fibrillation (04/27), ischemia and subacute embolic stroke (05/05), pubic fracture and UTI (05/17) - Heparin drip started in ED and continue, home meds: Plavix 75mg, atorvastatin 40mg, metoprolol, iron (for mild anemia), levothyroxine resumed - Patient was on gentamicin iv for UTI and discontinued today due to risk of toxicity of high trough - Poor po intake and malnutrition. Minimal ambulation with walker since pubic fracture, but bedbound since admission. No sign/symptoms of bruise/ bleeding - INR today: 0.99; Hct/Plt: 31.4/317 P/ - Due to high age, malnutrition, and bedbound, give warfarin 2.5 mg tonight. Pharmacy will continue to follow and daily dose according to INR Thank you for consulting clinical pharmacy in the care of this patient Osmin Lipscomb, PharmD, [facility] Aislinn Lipscomb Jun 07, 2016 21:39
[2016-06-07 22:17] LABS: APPEARANCE,URINE CLOUDY (CLEAR,HAZY); COLOR,URINE YELLOW (YELLOW); OCCULT BLOOD,URINE LARGE (NEGATIVE); PH,URINE 5.5 (5.0-8.0); UROBILINOGEN,URINE NORMAL (NORMAL)
[2016-06-08] VITALS (7 sets, daily range): BP systolic 104–119; BP diastolic 65–75; PULSE 71–118; RESP 15–18; O2SAT 93–100
[2016-06-08 06:47] LABS: BASOPHILS % (AUTO) 0.6 % (0-3); EOSINOPHILS % (AUTO) 3.4 % (0-5); MONOCYTES % (AUTO) 10.3 % (4-12); Mean Corpuscular Hemoglobin 29.2 pg (27.0-35.0); Mean Corpuscular Volume 90.1 fL (81-100); NEUTROPHILS % (AUTO) 71.6 % (40-74); Platelet Count 293 bil/L (150-400)
[2016-06-08 07:03] LABS: INR 1.07 ratio
--- NOTE | 2016-06-08 07:03 | NUR ---
Skin Problem Pt continued to refuse and become combative with movement and turns. With 3 people, able to do a good skin check, remedios rubin noted, applied mepilex foam, also redness in sacrum so mepilex applied there. Also floated heels and bridged sacrum. Please continue to turn as much as possible.
--- NOTE | 2016-06-08 07:35 | PCM.PHAPRO ---
Progress Date of Service: Jun 08, 2016 ANTICOAGULATION MANAGEMENT BY PHARMACY -INDICATION: recent onset a. fib and new onset of LLE DVT -HOME DOSE: NEW START -CONCURRENT ANTICOAGULATION: HEPARIN DRIP -CRCL: 43.5 ML/MIN -COAG TRENDS: -Jun 08-May 0.99 1.07 ~ 0.08 2.5 mg ~ -[id number] SCORE: 6 PLAN: WILL GIVE PATIENT A OT DOSE OF 5 MG TONIGHT TO GET PATIENT CLOSER TO GOAL INR RANGE OF 2-3 Pharmacy appreciates consult and will continue to monitor. THANKS! Marisel Jin PharmD Jun 08, 2016 07:35
[2016-06-08] MEDS: Nystatin 100,000 Unit/Gm 15 Gm Powder TOPICAL SCH ×2 (09:17→20:56)
--- NOTE | 2016-06-08 09:50 | NUR ---
Activity Pt up with physical therapy to bedside and chair for breakfast this am. Pt vocalized and was screaming intermittently but did many manuevers independently. Able to stand with x1 assist and transfer to chair at bedside. Pain meds given prior to work with PT to ease pain and anxiety associated with movement out of bed.
--- NOTE | 2016-06-08 10:21 | NUR ---
Evaluation completed. Please go to "Notes" then click on "Assessments and Notes" (bottom left corner of screen). Then select appropriate discipline tab on top of screen.
--- NOTE | 2016-06-08 12:03 | PCM.PNMED ---
Subjective Date of Service Jun 08, 2016 Subjective Patient seen and examined with family in the room, patient has decreased pain today however it is still very uncomfortable for her to move or be transferred. Patients family believes that manipulation above her waist is anticipatory pain that occurs from fear. When the same sides are investigated two times in a row patients pain in non-existent. Patient additionally has persistent lower extremity swelling. Patient is otherwise stable, and therapeutic in terms of her heparin drip. Exam Vital Signs Vital Sign - Last Date Time Temp Pulse Resp B/P Pulse Ox O2 Delivery O2 Flow Rate FiO2 06/08/16 10:12 115 06/08/16 09:15 16 108/65 94 Room Air 06/08/16 06:05 37.0 Intake and Output 06/07/16 06/07/16 06/08/16 Cumulative From/Thru 15:00 23:00 07:00 06/05/16 19:56 - 06/08/16 06:05 Intake Total 542 ml 0 ml 1601 ml Output Total 450 ml 650 ml 2700 ml Balance 92 ml -650 ml -1099 ml Intake Oral 0 ml 25 ml IV Total 542 ml 1576 ml Output Urine Total 450 ml 650 ml 2700 ml # Voids 6 Exam General: Older female lying in bed acute distress, well-developed, well- nourished, appropriately interactive. HEENT: Normocephalic, atraumatic. External ears without defect. Pupils equal, round, and reactive to light. Anicteric sclerae, moist conjunctivae, and no lid lag. Neck: Supple with full range of motion. No jugular venous distension. No bruits. No lymphadenopathy or thyromegaly. Cardiovascular: Regular rate and rhythm with no murmurs, rubs, or gallops appreciated. Pulmonary: Clear to auscultation bilaterally with no crackles, wheezes, or rhonchi. Normal respiratory effort with no use of accessory muscles. Abdomen: Soft, mild tenderness to palpation diffusely throughout her abdomen, nondistended, bowel sounds present. No hepatosplenomegaly or masses appreciated. Left flank and CVA tenderness on the left. Extremities: No clubbing, cyanosis, Left leg edema is present without any other signs of erythema Skin: Normal temperature, turgor, and texture; no rash, ulcers, or subcutaneous nodules appreciated. Neurological: Cranial nerves grossly intact. Normal muscle strength, tone, and bulk. Reflexes, coordination, and sensory function within normal limits. No known gait impairment. Psychiatric: Normal mood and affect. Alert and oriented to person, place, and time. Lab and Diagnostics Result Diagram: 06/08/16 0530 06/07/16 0520 X-Rays, CTs and MRIs US VEINOUS LEG DUPLEX UNILATERAL, LEFT IMPRESSION: Extensive DVT in the left lower extremity. The result was discussed with Dr. Sandoval in ER at the time of dictation. Dictated by: Nilda Headley M.D. on 06/05/2016 at 17:04 . Assessment & Plan 89 yo lady with history of hypertension, dementia, recent CVA, atrial fibrillation, recent pelvic fracture, recent UTI who was admitted to [facility] with LLE extensive DVT. 1. Acute left lower extremity extensive DVT, present on admission. Active - Continue heparin gtt. - Watch out for dyspnea. - As per patients family in the discussion we had, the patients family would like to pursue warfarin - will provide first dose tonite - will look for Xarelto approval by pharmacy 2. Acute non-specific right leg pain, present on admission. Active. - currently on heparin drip - will treat symptomatically - will give lidocaine patch today since morphine is effective but too sedating Chronic Problems: Recent CVA. - Continue Plavix and statin. - May continue upper extremity PT. Recently diagnosed atrial fibrillation. - Continue heparin gtt. - Continue metoprolol for rate control. Recent UTI, Treated. - Gentamicin level came back toxic therefore discontinued. - Discontinued gentamicin as this should be adequate treatment in context of possible contaminated urine culture. Recent pelvic fracture. - Continue Vicodin and Tylenol for pain pending Palliative recommendations. DNR/DNI . Resuscitation Status: DNR/DNI:Do Not Resuscitate/Intubate Cesar Reilly MD Jun 08, 2016 12:03
--- NOTE | 2016-06-08 12:16 | NUR ---
Allergy Discussed at bedside with family pt's chart states she has allergy to "procaine". and daughter state this is not an allergy, just epinephrine. Explained that Md had ordered lidocaine patches so needed to clarify. No allergy to "brandi" medications per family. Pharmacy notified.
--- NOTE | 2016-06-08 13:18 | NUR ---
Social Work Continued Discharge Planning: SW met with patient and daughter's Sabiha, and Sabra, at bedside to discuss discharge plan. Patient and family requesting hospice informational visit at this time. Patient and family wish to proceed with comfort care measures and transition patient home upon discharge. SW contacted and left voice mail [facility] [phone] regarding new referral. ELLY was provided with script for [facility] to determine costs coverage previously to discharge plans discussion. Script was faxed to [facility], P. [phone] [phone]. ELLY will continue to follow pending clinical course PLAN: Hospice info visit referral provided per patient family request. Date and time pending. SW will continue to follow Zully ESCUDERO Addendum: 06/08/16 at 1647 by MIRELLA OZUNA Per review of EMR, hospice consult on hold at this time. Palliative care will continue to follow pending further clinical course. If patient doesn't meet hospice criteria alternative discharge plans is home with [facility] via [facility], per family preference. Family able to establish caregiver services via private pay expense for additional care and support. SW to assess DME home needs for wheelchair, hospital bed, commode ext, pending further clinical course. SW to follow. Zully ESCUDERO
[2016-06-08] MEDS: Heparin 25K Unit/500mL 0.45 NS 25,000 UNIT in IV Premix 1 EACH IV SCH (13:39)
--- NOTE | 2016-06-08 15:30 | NUR ---
Tele [id number] notified that per tele, pt has remained tachycardic since getting up with PT. Has been intermittently tachy in prior days per monitor technician.
[2016-06-08] MEDS: Lidocaine Topical 5% Patch TOPICAL SCH (15:37)
[2016-06-08] MEDS ORDERED: predniSONE 10 mg Tablet PO ONE (15:50)
--- NOTE | 2016-06-08 16:00 | NUR ---
lab lab called and reminded about PTT, to be drawn vivien per lab
--- NOTE | 2016-06-08 16:10 | PCM.PALLBR ---
Palliative Care Recommendation Summary of palliative recommendations: -Symptom management (Pain/other) 06/08/16-- patient now off of statin which was started on the when she was admitted. Apparently it had been discontinued in the retirement-etiology unclear. This apparently was communicated to Dr. Reilly from [facility]. Pain in general is less intense based on evaluation and activity. Goal of family and patient is that she be as comfortable as possible. And specifically the goal is to have her at home. There is no option for transferring her to facility based on their wishes. She is large extended family who is willing to give additional support. They are interested in hospice if possible but if not to use home health for support. If her clinical status deteriorates at home despite home health and TLC-then would again be appropriate to investigate hospice. Case reviewed with Dr. Reilly and based on that question of myopathy as well as right knee joint effusion will give try of about 5 days of prednisone 10 mg per day and see if any benefit. She has an elevated CRP but this of course is nonspecific. Family is informed regarding the prednisone if no benefit after 5 days discontinue. UTI-as yet culture negative but patient had multiresistant organism and this may need to be rechecked with a longer duration off antibiotic. Nutrition and hydration improving with patient improved physical condition Pain-- etiology is unclear and out of proportion for time since pelvic fracture. Patient had improved significantly with respect to the pain from her pelvic fracture when at rehabilitation. It seems like it might be focused in this region but is a bit unclear. Management seems to work best with hydromorphone. Very possible the consideration of statin myopathy as cause. As yet no other cause identified. May have component of PMR but sx are diffuse and she is not a good enough historian to determine if proximal AM sx. Will see how she does without statin over the next few days. There is still the possibility of alternate cause such as pelvic pathology. Will postpone hospice referral for now to see if she has improvement off med Poor PO intake-food or fluids. Due to issue of positioning this may need to be addressed with IV in the short term. Dementia/ delirium-- patient has some baseline cognitive impairment. Seems significantly more evident but complicated with recent urinary tract infection multiple hospitalizations and now narcotics. Mentation improved today from yesterday CVA-- significant improvement in ability to swallow and ambulate with the assistance of a walker. Goals of care-reviewed with family in that patient cannot participate due to her altered mental status. Her is given information by family due to his hearing deficit. All family including her seem to be in agreement on goals of care. They wish patient to be transferred home but preferably with better pain control and possibly some understanding as to its cause. Family is willing to support patient and her in this transfer. At this point she does not exactly have a terminal disease but has had multiple medical issues. Goal would be to improve pain management, get her home and see if she is able to build some recovery. If she continues to decline family would like hospice to be engaged as soon as appropriate. Nutritional support reviewed. Encourage patient to take by mouth but family is definitely against option of feeding tube which apparently was attempted during her CVA -DPOA/Advanced Directives/POLST- is the main DURABLE POWER OF SURVEILLANCE SYSTEMS ANALYST but has remarkable support from large extended family and all seem to be in agreement. DNR/DNI and no feeding tube. They would like goal of comfort in including home with a goal of not returning to the hospital -Family/emotional support-extensive Additional Medical Diagnoses with primary management by Hospitalist team include : Hydration/nutrition Hx UTI-multiresistant Urinary retention Debility Problems: End of Life Preferences DNR/DNI no feeding tube-- aiming for comfort but at this time would not withdrawal of care Goals of Care Comfort with pain meds home health and hospice if more appropriate Disposition To be determined disposition definitely to be home but would like identification for cause of pain and management first Resuscitation Status Resuscitation Status: DNR/DNI:Do Not Resuscitate/Intubate POLST Updates/Changes Artificially Admin Nutrition: No Artifical Nutrition by Tube POLST Discussed with: Spouse/Other Total time 35 minutes; >50% face to face with patient and/or family, providing counselling regarding plans and recommendations, and in care coordination with his/her medical teams. Interview with family and patient, coordination of care and review of patient plan. I also spent an additional [ ] minutes counseling for advanced care planning with the patient/the patients family/the surrogate decision maker. copies to: DimitrisCatalina JI Palliative Brief Note Date of Service Jun 08, 2016 . Patient is seen with her , daughter who works as a pharma researcher and is well versed on medications as well as her son-in-law. Patient doing a bit better able to sit in a chair pain continues with movement but not after settled. Improved alertness, by mouth intake, drinking a smoothie. Baseline level of dementia reviewed moderate but able to do a few chores around the house. Urinary retention with Burton catheter Positive for hematuria as well as leukocytosis. As yet culture negative but had been on gentamicin discontinued just prior to collection of urinalysis. Jania Ewing MD Jun 08, 2016 16:09
--- NOTE | 2016-06-08 17:38 | NUR ---
spiritual are: follow brief visit. pt's at bedside, offered updates. pt engaged in basic conversation and appreciation for family's support.
[2016-06-09] VITALS (8 sets, daily range): BP systolic 96–122; BP diastolic 57–77; PULSE 67–120; RESP 14–20; O2SAT 93–98
--- NOTE | 2016-06-09 03:25 | NUR ---
Pain Pt appears comfortable. She visibly winces with turns and then is quiet. She does not like her right leg to be touched. Right leg is not swollen. No redness seen. Elevated on pillow Care ongoing
[2016-06-09 06:08] LABS: BASOPHILS % (AUTO) 0.3 % (0-3); MONOCYTES % (AUTO) 7.9 % (4-12); Mean Corpuscular Hemoglobin 29.4 pg (27.0-35.0); Mean Corpuscular Volume 88.4 fL (81-100); NEUTROPHILS % (AUTO) 77.4 % (40-74); Platelet Count 374 bil/L (150-400)
[2016-06-09 06:23] LABS: INR 1.13 ratio
--- NOTE | 2016-06-09 07:35 | PCM.PHAPRO ---
Progress Date of Service: Jun 09, 2016 ANTICOAGULATION MANAGEMENT BY PHARMACY -INDICATION: recent onset a. fib and new onset of LLE DVT -HOME DOSE: NEW START -CONCURRENT ANTICOAGULATION: HEPARIN DRIP -CRCL: 43.5 ML/MIN -COAG TRENDS: -Jun 08-Jun 09-May 0.99 1.07 1.13 ~ 0.08 0.06 2.5 mg 5 MG ~ -[id number] SCORE: 6 PLAN: WILL GIVE PATIENT A OT DOSE OF 5 MG TONIGHT TO GET PATIENT CLOSER TO GOAL INR RANGE OF 2-3 Pharmacy appreciates consult and will continue to monitor. THANKS! Marisel Jin PharmD Jun 09, 2016 07:35
--- NOTE | 2016-06-09 08:47 | NUR ---
Palliative care note D/A: Phone call this am from Stacy at [facility]. She notes that agency will provide info visit today at 1100. Ms left for [facility] and Dr. Beaver aware. P: Palliative to continue to follow. Alyssa SIFUENTES CCM Addendum: 06/09/16 at 1411 by LATASHA BARBOUR Palliative care note amendment D/A: Dr. Beaver notes that pt and family are interested in having [facility] provide services in the home. Msg left for [facility] CANVAS REPAIRER indicating such and offering assistance to call [facility] re: time for when agency can open for care. P: Palliative to continue to follow. Alyssa SIFUENTES CCM Addendum: 06/09/16 at 1426 by LATASHA BARBOUR Palliative care note amendment D/A: Case discussed with Dr. Beaver. Family would like [facility] services at dc. Unclear when pt will be ready for dc or when [facility] can open. Have left msg for CANV[facility] REPAIR[facility] in regards to desire for services and offered assistance in making arrangements. P: Palliative care to follow. Alyssa SIFUENTES, CCM
[2016-06-09] MEDS: Nystatin 100,000 Unit/Gm 15 Gm Powder TOPICAL SCH ×2 (09:52→20:22)
[2016-06-09] MEDS: Lidocaine Topical 5% Patch TOPICAL SCH (09:52)
[2016-06-09] MEDS: Heparin 25K Unit/500mL 0.45 NS 25,000 UNIT in IV Premix 1 EACH IV SCH (10:24)
--- NOTE | 2016-06-09 10:30 | NUR ---
Morning Rounds Staffed patient's case with Dr. Vicente and case management. Asked MD if Heparin drip will be discontinued prior to start of Coumadin this afternoon, MD stated she will assess patient and address coagulation issues. No plan for discharge at this time.
--- NOTE | 2016-06-09 13:14 | PCM.PNMED ---
Subjective Date of Service Jun 09, 2016 Subjective Patient is resting comfortably in bed and is surrounded by family. They just had completed an informational discussion with hospice and have signed on. They are interested in getting the patient home as soon as I can. I do review that patient has been approved by her insurance for Xarelto therapy. She does have intermittently some bilateral leg pain. This is most likely related to presence of DVTs bilaterally left worse than right. Exam Vital Signs Vital Sign - Last Date Time Temp Pulse Resp B/P Pulse Ox O2 Delivery O2 Flow Rate FiO2 06/09/16 09:29 36.6 74 14 122/66 96 Room Air Intake and Output 06/08/16 06/08/16 06/09/16 Cumulative From/Thru 15:00 23:00 07:00 06/05/16 19:56 - 06/09/16 05:47 Intake Total 553 ml 350 ml 2504 ml Output Total 400 ml 352 ml 3452 ml Balance 153 ml -2 ml -948 ml Intake Oral 50 ml 75 ml IV Total 553 ml 300 ml 2429 ml Output Urine Total 400 ml 352 ml 3452 ml # Voids 6 Exam Constitutional: Elderly woman in no acute distress Head: Normocephalic atraumatic Chest: Clear to auscultation Cor: Irregular regular rate and rhythm S1-S2 Abdomen: Soft nontender bowel sounds present Extremities: Bilateral pedal edema trace on the right 1+ on the left no erythema noted. Psych: Mood and affect are blunted Neuro: Alert and oriented to person only Lab and Diagnostics Result Diagram: 06/09/16 0555 06/09/16 0555 X-Rays, CTs and MRIs US VEINOUS LEG DUPLEX UNILATERAL, LEFT IMPRESSION: Extensive DVT in the left lower extremity. The result was discussed with Dr. Sandoval in ER at the time of dictation. Dictated by: Nilda Headley M.D. on 06/05/2016 at 17:04 . Assessment & Plan 89 yo lady with history of hypertension, dementia, recent CVA, atrial fibrillation, recent pelvic fracture, recent UTI who was admitted to [facility] with LLE extensive DVT. 1. Acute left lower extremity extensive DVT, present on admission. Active Will DC IV heparin and initiate as a result of therapy as it has been approved by her insurance. Starting dose will be 15 mg by mouth twice a day times approximately 21 days and then 20 mg once daily. 2. Acute non-specific right leg pain, present on admission. Active. We will DC IV morphine and can try by mouth Vicodin when necessary pain - will treat symptomatically - will give lidocaine patch today since morphine is effective but too sedating Chronic Problems: Recent CVA. - Continue Plavix and statin. - May continue upper extremity PT. Recently diagnosed atrial fibrillation. - Continue heparin gtt. - Continue metoprolol for rate control. Recent UTI, Treated. - Gentamicin level came back toxic therefore discontinued. - Discontinued gentamicin as this should be adequate treatment in context of possible contaminated urine culture. Recent pelvic fracture. - Continue Vicodin and Tylenol for pain pending Palliative recommendations. DNR/DNI . Pain Evaluation: Adequate Pain Control Resuscitation Status: DNR/DNI:Do Not Resuscitate/Intubate Time spent 30 minutes Jessie Vicente MD Jun 09, 2016 13:14
--- NOTE | 2016-06-09 15:04 | PCM.PALLBR ---
Palliative Care Recommendation 89-year-old female admitted with acute left lower extremity DVT, but also with nonspecific other pain, as well as history of recent CVA, atrial fibrillation, etc. Palliative medicine consult to assist with determination of goals of care and symptom management Summary of palliative recommendations: -Symptom management (Pain/other)- Etiology of her pain is unclear and out of proportion given time since pelvic fracture. Patient had improved significantly with respect to the pain from her pelvic fracture when at rehabilitation. It seems like it might be focused in this region but is a bit unclear. Statin induced myopathy remains a possibility. Also consider possible PMR or other. Patient's pain does seem to be moderating, though it is not clear which specific intervention might be responsible. Will continue steroids for now, prednisone 10 mg daily with plan for a full 5 days if she continues to improve. Her statins have been discontinued. Discontinue prn hydromorphone as it has not been used for 3 days. Nurses directed to try oral hydrocodone as ordered if she has significant pain prior to resorting to IV morphine. Goal of family and patient is that she be as comfortable as possible. And specifically the goal is to have her at home. There is no option for transferring her to facility based on their wishes. She has a large extended family who is willing to provide additional support. They are interested in hospice if necessary but if not to use home health for support. If her clinical status deteriorates at home despite home health and TLC- then would again be appropriate to investigate hospice. Note that a hospice informational visit was done this morning but outcome/decisions related to that not yet available Possible UTI?- cultures negative and clean catch UA suggested contamination. Will continue to monitor clinically Nutrition and hydration improving with patient's improved physical condition. Continue to encourage oral intake- family consensus is definitely against feeding tube/artificial nutrition. Dementia/ delirium-- patient has some baseline cognitive impairment. Seems significantly more evident but complicated by recent urinary tract infection multiple hospitalizations and now narcotics. Has seemed to improve over the last 48 hours CVA-- significant improvement in ability to swallow and ambulate with the assistance of a walker. -DPOA/Advanced Directives/POLST- is the main DURABLE POWER OF TEMPLATE MAKER but has remarkable support from large extended family and all seem to be in agreement. DNR/DNI and no feeding tube. They would like goal of comfort in including home with a goal of not returning to the hospital -Family/emotional support-extensive Additional Medical Diagnoses with primary management by Hospitalist team include : 1. Acute left lower extremity extensive DVT, present on admission. Active 2. Acute non-specific right leg pain, present on admission. Active. Chronic Problems: Recent CVA. Recently diagnosed atrial fibrillation. Recent UTI, Treated. Recent pelvic fracture. Problems: End of Life Preferences DNR/DNI no feeding tube-- aiming for comfort but at this time would not withdraw care Goals of Care Comfort with pain meds, home health and hospice support Disposition Likely home in next 1-2 days (once hospice able to open her case). Resuscitation Status Resuscitation Status: DNR/DNI:Do Not Resuscitate/Intubate POLST Updates/Changes Artificially Admin Nutrition: No Artifical Nutrition by Tube POLST Discussed with: Spouse/Other . Pain: Mild Total time 30 minutes; >50% face to face with patient and family, providing counselling regarding plans and recommendations, and in care coordination with her medical teams. Palliative Brief Note Date of Service Jun 09, 2016 . Returned to reevaluate patient. Prior to visiting, reviewed her updated records in the EMR in detail. On arrival, she was sitting up in bed with her daughter and at bedside. Denied any distress. Quite forgetful. Overall, pain continues to improve and she is quite comfortable today- little or no pain, even when being turned in bed. Family noted they'd spoken with hospice and were looking forward to returning home in the next several days with hospice support. Patient's family is large and committed to assisting with her care at home. Reviewed medications and changes with family and they approve. Tyron Beaver MD Jun 09, 2016 12:40
[2016-06-10 02:10] VITALS: BP 129/67; PULSE 78; RESP 18; O2SAT 95
--- NOTE | 2016-06-10 02:12 | NUR ---
restless patient is very awake. slightly restless. pulling at telemetry. re did tele stickers. vs stable. patient denies pain. comfortable. bridged hips with pillows. quiet environment. daughter at bedside. care ongoing.
--- NOTE | 2016-06-10 02:45 | NUR ---
constipation constipated. hard formed stool at rectum unable to pass. given stool softeners earlier in evening. up to bsc. no bm. offered possible enema. declined. placed in attends. placed back in bed. comfortable. bed alarm on. care ongoing.
[2016-06-10 04:47] VITALS: PULSE 82
[2016-06-10 06:39] VITALS: BP 111/66; PULSE 81; RESP 16; O2SAT 96
[2016-06-10 07:46] VITALS: PULSE 95
--- NOTE | 2016-06-10 08:12 | NUR ---
Social Work: Continued d/c planning Data: Pt is on day 4 of hospitalization. EMR reviewed. MARINE DRILLER spoke with MD who states pt is medically ready for d/c. Consents have been signed for hospice, the earliest that hospice can open is Monday. Pt is on the waiting list to open earlier if available. MARINE DRILLER will follow up with MD regarding if pt can go home prior to hospice opening. MARINE DRILLER will continue to follow. Assessment: Pt who will open with hospice. Plan: Pt will d/c home with her daughter with hospice. MARINE DRILLER will follow up with MD regarding if pt can go home prior to hospice opening. MARINE DRILLER will continue to follow. KENA Duarte
--- NOTE | 2016-06-10 08:57 | NUR ---
Social work note - Continued d/c planning MECHATRONICS ENGINEER met with pt and pt's daughter Sabiha. Explained that [facility] on Tuesday 06/13 in the morning and if hospice has an earlier open date, they will see Pt sooner at home. Stacy at [facility] [phone] states that [employer] will deliver equipment today. Pt and family would like to go home today. Sabiha states that they have enough help at home and have a friend who is an RN who will be available for questions if needed. MECHATRONICS ENGINEER spoke with Sabra, pt's daughter [phone] who states that she will be available to [employer] company today. Family would like pt to go home today - Would like transport with cabulance. No preference on provider. MECHATRONICS ENGINEER will set up transport when family confirms that they have equipment at home. Plan: Home today by [facility]ulance and [facility] opening on Monday. MARIA Stratton
[2016-06-10 10:00] VITALS: BP 111/54; PULSE 87; RESP 16; O2SAT 99
[2016-06-10] MEDS: Lidocaine Topical 5% Patch TOPICAL SCH (10:11)
[2016-06-10] MEDS: Nystatin 100,000 Unit/Gm 15 Gm Powder TOPICAL SCH (10:12)
[2016-06-10] MEDS ORDERED: ONDA4TAB6 PO (11:26)
--- NOTE | 2016-06-10 11:26 | NUR ---
Called and arranged [facility] wheelchair transport for 1500 per LAND SALES AGENT patient is returning home and is willing to pay privately for this transport.
[2016-06-10] MEDS ORDERED: MORP100S5 PO (11:29)
--- NOTE | 2016-06-10 12:12 | NUR ---
Social work note - Discharge SMALL PACKAGE AND BUNDLE SORTER CLERK met with pt's daughter who states that Hospice equipment is being delivered this afternoon. They will be back to the hospital at 1400 to go over discharge instructions and to assist with transportation. SMALL PACKAGE AND BUNDLE SORTER CLERK identified that [facility] is available at 1500 for transport. SMALL PACKAGE AND BUNDLE SORTER CLERK discussed with RN who will go over instructions. SMALL PACKAGE AND BUNDLE SORTER CLERK spoke with Stacy at [facility] who will open on Monday morning at the latest. Pt and family deny any needs. Plan: Home with family - [facility] to transport. [facility] to open on Monday. MARIA Johnson
[2016-06-10] MEDS ORDERED: RIVA15TA PO (12:59)
--- NOTE | 2016-06-10 13:04 | PCM.DC.MED ---
Discharge Summary Date of Service Jun 10, 2016 Dates of Hospitalization Date of Hospital Admission Jun 05, 2016 at 17:21 Date of Discharge: Jun 10, 2016 Providers: Admitting Physician: Vivek Au MD Primary Care Physician: Catalina Shanks Attending Physician: Vivek Au MD Diagnosis at Time of Discharge Diagnosis at Time of Discharge Bilateral lower extremity DVTs Consultations Hospice, palliative care Procedures XRay, CTs & MRIs US VEINOUS LEG DUPLEX UNILATERAL, LEFT IMPRESSION: Extensive DVT in the left lower extremity. The result was discussed with Dr. Sandoval in ER at the time of dictation. Dictated by: Nilda Headley M.D. on 06/05/2016 at 17:04 . Brief History Palliative care note Request for pain management as well as review of goals of care Requesting physician Dr. Obregon PCP- Melinda WORKMAN Patient is an 89-year-old female who been living independently with her with some mild cognitive impairment some hypertension and diagnosis of hypothyroidism. In early April she was seen by her PCP with note of atrial fibrillation. She started on ASA and on May 05 was seen in the emergency room for acute CVA. There was also note of other subacute lesions on her subsequent scan. Patient's symptoms improved over time being able to eat soft food and improved ability to ambulate. May 17 she was being assisted in the shower when she apparently became weak and was assisted to the ground. Initially she had some pain but it was not until the next day when she was noted to have severe pain and was evaluated with diagnosis of pelvic ramus fracture. There is that this time that she was transferred to [facility] and was gradually doing better with physical therapy able to walk with a walker sit in a chair. She was hoping to be able to go home but then developed symptoms of a urinary tract infection multi resistant requiring IV antibiotics. She stayed at the retirement and additional 4 days to complete this course and was about to be discharged when her family noticed significant swelling in her left leg with subsequent diagnosis of DVT. She is now hospitalized on heparin but has now developed severe pain in the right leg and or hip pelvic area. She is not able to localize her pain but she yells out with any attempt to reposition. Her family has also noticed that she can be calm not moving and then suddenly have sudden severe pain again somewhere in pelvic area. There is no known additional fall. Patient and her have been for 70 years. They have 7 children majority of which live locally and are very involved and supportive. The patient has verbalized to her family that she wants to go home/only home- and seems to indicate that she is ready to . This seems to be mostly in response to being in the retirement as well as her level of pain. She has some degree of anorexia Burton catheter in place due to severity of pain with movement Goal for all involved is adequate pain management and to have her at home Hospital Course 89 yo lady with history of hypertension, dementia, recent CVA, atrial fibrillation, recent pelvic fracture, recent UTI who was admitted to [facility] with LLE extensive DVT. 1. Acute left lower extremity extensive DVT, present on admission. Active Will DC IV heparin and initiate as a result of therapy as it has been approved by her insurance. Starting dose will be 15 mg by mouth twice a day times approximately 21 days and then 20 mg once daily. 2. Acute non-specific right leg pain, present on admission. Active. We will DC IV morphine and can try by mouth Vicodin when necessary pain - will treat symptomatically - will give lidocaine patch today since morphine is effective but too sedating 3. Disposition and placement After discussions with palliative care and hospice, patient and family have opted to go home with hospice care. She wishes to be discharged home today and her DME supplies will arrive later this afternoon. Chronic Problems: Recent CVA. - Continue Plavix and statin. - May continue upper extremity PT. Recently diagnosed atrial fibrillation. - Continue heparin gtt. - Continue metoprolol for rate control. Recent UTI, Treated. - Gentamicin level came back toxic therefore discontinued. - Discontinued gentamicin as this should be adequate treatment in context of possible contaminated urine culture. Recent pelvic fracture. - Continue Vicodin and Tylenol for pain pending Palliative recommendations. DNR/DNI . Exam Vital Signs (Last) Date Time Temp Pulse Resp B/P Pulse Ox O2 Delivery O2 Flow Rate FiO2 06/10/16 10:00 36.5 87 16 111/54 99 Room Air Test 06/05/16 16:28 06/06/16 07:04 06/06/16 09:55 06/06/16 11:06 Hold Rice Top Tube Received (Received) Total Bilirubin 0.5mg/dL (0.0-1.2) Aspartate Amino Transf (AST/SGOT) 22U/L (0-50) Alanine Aminotransferase (ALT/SGPT) 19U/L (0-32) Alkaline Phosphatase 96U/L (25-165) Total Protein 6.3g/dL (6.4-8.4) Albumin 3.0g/dL (3.4-5.0) Gentamicin Level Trough 3.5ug/mL Rx (0.5-1.5) Gentamicin Level Peak 3.2ug/mL Rx (4-8) Test 06/06/16 21:40 06/07/16 05:20 06/07/16 22:02 06/09/16 05:55 Hold Urine Received (Received) Phosphorus Level 4.4mg/dL (2.5-4.9) Magnesium Level 1.7mg/dL (1.6-2.6) Total Creatine Kinase 12U/L (21-215) C-Reactive Protein 18.1mg/dL (0.0-0.5) Aldolase 6.2U/L (3.3-10.3) Procalcitonin 0.15ng/mL (0.00-0.08) Urine Color Yellow (YELLOW) Urine Appearance Cloudy (CLEAR,HAZY) Urine pH 5.5 (5.0-8.0) Urine Specific [place] 1.030 (1.003-1.035) Urine Protein 100mg/dL (NEG,TRACE) Urine Glucose (UA) Negativemg/dL (NEGATIVE) Urine Ketones Negativemg/dL (NEGATIVE) Urine Occult Blood Large (NEGATIVE) Urine Nitrite Negative (NEGATIVE) Urine Bilirubin Negative (NEGATIVE) Urine Urobilinogen Normalmg/dL (NORMAL) Urine Leukocyte Esterase Small (NEGATIVE) Urine RBC 11-50/hpf (0-2) Urine WBC >50/hpf (0-5) Urine Epithelial Cells Moderate/hpf (NONE-MOD) Urine Crystals None seen (NONE SEEN) Urine Bacteria Moderate/hpf (NONE-FEW) Urine Hyaline Casts Occasional/lpf (NONE) Urine Granular Casts Occasional (NONE SEEN) Urine Waxy Casts None seen (NONE SEEN) Urine Red Blood Cell Casts None seen (NONE SEEN) Urine White Blood Cell Casts None seen (NONE SEEN) Urine Mucus None seen (None Seen) Urine Trichomonas None seen (NONE SEEN) Urine Yeast None (NONE SEEN) Urinalysis Comment None Urine Culture Reflexed Indicated White Blood Count 10.4th/mm3 (3.8-10.1) Red Blood Count 3.27mil/mm3 (3.90-5.20) Mean Corpuscular Volume 88.4fL (81-100) Mean Corpuscular Hemoglobin 29.4pg (27.0-35.0) Mean Corpuscular Hemoglobin Concent 33.2% (32.0-37.0) Red Cell Distribution Width 14.2% (12.3-15.4) Platelet Count 374bil/L (150-400) Neutrophils (%) (Auto) 77.4% (40-74) Lymphocytes (%) (Auto) 12.3% (14-46) Monocytes (%) (Auto) 7.9% (4-12) Eosinophils (%) (Auto) 1.0% (0-5) Basophils (%) (Auto) 0.3% (0-3) Prothrombin Time 12.1sec (8.1-12.5) Prothromb Time International Ratio 1.13ratio Sodium Level 134mEq/L (134-144) Potassium Level 3.7mEq/L (3.5-5.2) Chloride Level 92mEq/L (97-108) Carbon Dioxide Level 29mmol/L (18-29) Blood Urea Nitrogen 27mg/dL (8-27) Creatinine 1.04mg/dL (0.57-1.00) Estimat Glomerular Filtration Rate 71mL/min (>59) Glucose Level 118mg/dL (60-99) Calcium Level 8.6mg/dL (8.5-10.1) Test 06/09/16 12:20 06/10/16 02:44 Activated Partial Thromboplast Time 64.6sec (22.8-33.0) Hemoglobin 11.0g/dL (12.0-15.6) Hematocrit 32.9% (35.0-46.0) Discharge Medications Discharge Medications Atorvastatin Calcium (Atorvastatin Calcium) 40 Mg Tablet 40 MG PO HS Prescribed by: JESSIE VICENTE MD Clopidogrel Bisulfate (Plavix) 75 Mg Tablet 75 MG PO DAILY Prescribed by: JESSIE VICENTE MD Ferrous Sulfate (Iron) 325 Mg Tablet 325 MG PO DAILY Prescribed by: JESSIE VICENTE MD Levothyroxine Sodium (Levo-T) 100 Mcg Tablet 100 MCG PO DAILY Prescribed by: JESSIE VICENTE MD Metoprolol Tartrate (Metoprolol Tartrate) 25 Mg Tablet 25 MG PO BID Prescribed by: JESSIE VICENTE MD Rivaroxaban (Xarelto) 15 Mg Tablet 15 MG PO BID Prescribed by: JESSIE VICENTE MD Triamterene/HCTZ 75-50 mg (Triamterene/HCTZ 75-50 mg) 1 Each Tablet 0.5 TABLET PO DAILY Prescribed by: JESSIE VICENTE MD Vit A/Vit C/Vit E/Zinc/Copper (Preservision Areds Softgel) 1 Each Capsule 1 EACH PO DAILY Prescribed by: JESSIE VICENTE MD As needed Morphine Sulfate Oral Concentrate (Roxanol Oral Concentrate) 100 Mg/5 Ml (20 Mg/ Ml) Solution 10 MG PO Q3H PRN PRN For Pain Prescribed by: JESSIE VICENTE MD Ondansetron (Zofran) 4 Mg Tablet 4 MG PO Q4H PRN PRN For Nausea Prescribed by: JESSIE VICENTE MD Followup Plan Discharge Diet: Other (as tolerated) Discharge Activity: Other (as tolerated) Follow-up with PCP in: 1 week Time spent 60 minutes Jessie Vicente MD Jun 10, 2016 13:04
[2016-06-10 13:13] VITALS: BP 111/73; PULSE 91; RESP 18; O2SAT 93
--- NOTE | 2016-06-10 15:20 | NUR ---
Discharge Patient discharge to home via cabulance accompanied by family members. Will be admitting to hospice on Monday, jacobo catheter patent and in place. Family instructed and understood how to care cath at home. Hard copy of prescriptions and discharge notes given, Gonzalez prescription faxed to [facility] in [place] and will mail hard copy. All belongings taken home, family happy and expressed their appreciation for the care rendered to the patient. Patient denies any discomfort upon discharge.
== END 2016-06-10 15:20 | disposition home or self-care (01) | DRG 301 ==
LOC: EDUNIT# 14:15 → SED 14:15 → EDBD 14:15 → MOC 17:21
PROVIDERS: ADMIT Internal Medicine; ATTEND Internal Medicine
DX: I82.413 Acute embolism and thrombosis of femoral vein, bilateral (principal); Z86.73 Personal history of transient ischemic attack (TIA), and cerebral infarction without residual deficits; Z79.02 Long term (current) use of antithrombotics/antiplatelets; Z86.010 Personal history of colon polyps; I48.2 Chronic atrial fibrillation; Z66 Do not resuscitate; I82.433 Acute embolism and thrombosis of popliteal vein, bilateral